=== PATIENT | female | born 1930 | race Caucasian/White ===

== ENCOUNTER 2017-06-09 21:00 | Inpatient (IN) | payer MEDICARE, OTHER ==
[~2017-06-09 21:00] MED LIST: ETOMIDATE INJ/PF 20 MG/10 ML SDV IV ONE; KETAMINE HCL INJ 500 MG/10 ML VIAL ONE
[2017-06-09] MEDS ORDERED: NITROGLYCERIN 0.4 MG/TAB 25 TAB/BOTTLE ONE (21:08)
[2017-06-09] MEDS ORDERED: FUROSEMIDE INJ/PF 40 MG/4 ML SDV ONE (21:09)
[2017-06-09] MEDS ORDERED: NITROGLYCERIN/D5W 50 MG/250 ML RTUINJ IV ONE (21:09)
[2017-06-09] MEDS ORDERED: NITROGLYCERIN 0.4 MG/TAB 25 TAB/BOTTLE SL ONE ×2 (21:16→21:17)
[2017-06-09] MEDS: NITROGLYCERIN/D5W 50 MG/250 ML RTUINJ IV PRN ×2 (21:31→21:40)
--- NOTE | 2017-06-09 21:31 | RADIOLOGY REPORT (SQ) ---
EXAM DESCRIPTION: CHEST SINGLE VIEW COMPLETED DATE/TIME: 06/09/2017 9:23 pm REASON FOR STUDY: respiratory distress COMPARISON: 04/25/2011 NUMBER OF VIEWS: One view. TECHNIQUE: Single frontal radiographic image of the chest acquired. LIMITATIONS: None. FINDINGS: LUNGS AND PLEURA: Diffuse bilateral airspace disease. No large effusions. MEDIASTINUM AND HEART: Cardiomegaly. Pulmonary vascular redistribution. BONY STRUCTURES: No acute findings. HARDWARE: None. OTHER: No other significant finding. IMPRESSION: Congestive heart failure. TECHNICAL DOCUMENTATION: JOB ID: [id number]
--- NOTE | 2017-06-09 21:32 | EKG REPORT ---
SEVERITY:- ABNORMAL ECG - MULTI FOCAL ATRIAL TACHYCARDIA LEFT BUNDLE BRANCH BLOCK : Confirmed by: Lashae Gómez 09-Jun-2017 21:31:59
[2017-06-09 22:06] LABS: APPEARANCE,URINE SLIGHTLY-CLOUDY; BILIRUBIN,URINE NEGATIVE (NEGATIVE); COLOR,URINE YELLOW; GLUCOSE, URINE NEGATIVE (NEGATIVE); KETONES,URINE NEGATIVE (NEGATIVE); LEUKOCYTE ESTERASE,URINE NEGATIVE (NEGATIVE); NITRITE,URINE NEGATIVE (NEGATIVE); PROTEIN,URINE 100 mg/dL (NEGATIVE); URINE SPECIFIC GRAVITY 1.008; UROBILINOGEN,URINE NEGATIVE mg/dL (<2.0)
[2017-06-09 22:38] LABS: ABSOLUTE BASOPHILS # (AUTO) 0.1 10^3/uL (0.0-0.2); ABSOLUTE LYMPHOCYTES (AUTO) 0.9 10^3/uL (0.5-4.7); ABSOLUTE MONOCYTES (AUTO) 1.2 10^3/uL (0.1-1.4); BASOPHILS % (AUTO) 0.4 % (0-2); HEMATOCRIT 42.1 % (36.0-47.0); HEMOGLOBIN 14.2 g/dL (12.0-15.5); LYMPHOCYTES % (AUTO) 5.7 % (13-45); MEAN CORPUSCULAR HEMOGLOBIN 34.9 pg (27.0-33.4); MEAN CORPUSCULAR HGB CONC 33.7 g/dL (32.0-36.0); MEAN CORPUSCULAR VOLUME 103 fl (80-97); MONOCYTES % (AUTO) 8.2 % (3-13); PLATELET COUNT 131 10^3/uL (150-450); RED BLOOD COUNT 4.07 10^6/uL (3.72-5.28); RED CELL DISTRIBUTION WIDTH 15.3 % (11.5-14.0); SEGMENTED NEUTROPHILS % (AUTO) 85.7 % (42-78); TOTAL CELLS COUNTED % (AUTO) 100 %; WHITE BLOOD COUNT 15.1 10^3/uL (4.0-10.5)
[2017-06-09] MEDS ORDERED: METOPROLOL TARTRATE 50 MG TABLET PO SCH (22:45)
[2017-06-09 22:55] LABS: ALANINE AMINOTRANSFERASE 37 U/L (9-52); ALBUMIN 4.1 g/dL (3.5-5.0); ALKALINE PHOSPHATASE 141 U/L (38-126); ANION GAP 18 (5-19); ASPARTATE AMINO TRANSFERASE 66 U/L (14-36); BILIRUBIN,DIRECT 0.2 mg/dL (0.0-0.4); BILIRUBIN,TOTAL 0.6 mg/dL (0.2-1.3); BLOOD UREA NITROGEN 14 mg/dL (7-20); CALCIUM 9.4 mg/dL (8.4-10.2); CARBON DIOXIDE 16 mmol/L (22-30); CHLORIDE 106 mmol/L (98-107); CREATINE KINASE 287 U/L (30-135); GLUCOSE 171 mg/dL (75-110); POTASSIUM 3.4 mmol/L (3.6-5.0); SODIUM 139.5 mmol/L (137-145); TOTAL PROTEIN 6.5 g/dL (6.3-8.2)
[2017-06-09 23:04] LABS: ARTERIAL BLOOD BASE EXCESS -6.7 mmol/L; ARTERIAL BLOOD H2CO3 0.97 mmol/L (1.05-1.35); ARTERIAL BLOOD HCO3 17.6 mmol/L (20-26); ARTERIAL BLOOD O2 SATURATION 96.4 % (94-98); ARTERIAL BLOOD PCO2 32.1 mmHg (35-45); ARTERIAL BLOOD PH 7.36 (7.35-7.45); ARTERIAL BLOOD PO2 86.9 mmHg (80-100); ARTERIAL BLOOD TOTAL CO2 18.6 mmol/L (21-25)
[2017-06-09 23:05] LABS: ARTERIAL BLOOD FIO2 100%
[2017-06-09 23:12] LABS: TROPONIN I 4.31 ng/mL
--- NOTE | 2017-06-09 23:17 | ER Document Report ---
ED General - General Chief Complaint: Respiratory Distress Stated Complaint: RESPIRATORY DISTRESS Time Seen by Provider: 06/09/17 21:16 Mode of Arrival: Medic Information source: Outside Facility Records Cannot obtain history due to: Dementia TRAVEL OUTSIDE OF THE [place] IN LAST 30 DAYS: No - HPI Patient complains to provider of: Pt. brought in and respiratory distress Onset: Just prior to arrival Onset/Duration: Sudden Severity: Severe Notes: Patient's daughter states that she brought the patient to a nearby urgent care today because she was coughing and appeared short of breath. She states they could not obtain the pulse ox they are. 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 They diagnosed her with bronchitis and sent her home on doxycycline. Patient's daughter had just dropped her off at her facility when she got the call that she was taken to the emergency department. Patient's daughter states patient is severely demented and she is DNR. Daughter states she does not want to put on her breathing machine under any circumstance. - Related Data Allergies/Adverse Reactions: meperidine HCl [From Demerol] Allergy (Verified 04/25/11 22:44) red dye [Red Dye] Allergy (Verified 04/25/11 22:44) Past Medical History - General Information source: Outside Facility Records Cannot obtain history due to: Dementia - Social History Smoking Status: Former Smoker Chew tobacco use (# tins/day): No Frequency of alcohol use: None Drug Abuse: None Lives with: [facility] Family History: Hypertension Patient has suicidal ideation: No Patient has homicidal ideation: No - Past Medical History Cardiac Medical History: Reports: Hx Atrial Fibrillation, Hx Heart Attack, Hx Hypercholesterolemia, Hx Hypertension Pulmonary Medical History: Reports: Hx Bronchitis Renal/ Medical History: Denies: Hx Peritoneal Dialysis Malignancy Medical History: Reports: None GI Medical History: Reports: Hx Gastroesophageal Reflux Disease Musculoskeltal Medical History: Reports Hx Arthritis Psychiatric Medical History: Reports: Hx Depression Traumatic Medical History: Reports: None Past Surgical History: Reports: Hx Cardiac Catheterization, Hx Open Heart Surgery - Immunizations Hx Diphtheria, Pertussis, Tetanus Vaccination: Yes Review of Systems - Review of Systems -: Yes ROS unobtainable due to patient's medical condition Physical Exam - Vital signs Vitals: Resp Pulse Ox 48 H 100 06/09/17 21:00 06/09/17 21:00 Interpretation: Tachycardic, Tachypneic - Notes Notes: PHYSICAL EXAMINATION: GENERAL: Medically ill-appearing, marketed respiratory distress on BiPAP. HEAD: Atraumatic, normocephalic. EYES: Pupils equal round and reactive to light, extraocular movements intact, conjunctiva are normal. ENT: Nares patent. Dry mucous membranes. NECK: Normal range of motion, supple without lymphadenopathy LUNGS: Bilateral crackles throughout both lungs. HEART: Tachy and regular rhythm ABDOMEN: Soft, nontender, nondistended abdomen. No guarding, no rebound. No masses appreciated. Female : deferred Musculoskeletal: No cyanosis. NEUROLOGICAL: Cranial nerves grossly intact. Normal sensory, motor exams PSYCH: Anxious SKIN: Warm, Dry, normal turgor, no rashes or lesions noted. Course - Re-evaluation Re-evalutation: 06/09/17 23:16 Patient presented via EMS. They did have her DNR paper. Patient was started on BiPAP to sublingual nitroglycerin were given. Patient was then placed on a nitro drip at 20 mcg/min as soon as an IV access was obtained. Chest x-ray showed florid CHF. Patient began to improve and did well throughout her stay in the emergency department. Patient's daughter and daughter's neighbor presented to the emergency department. I did talk to them for quite a while. Patient just moved here after her in April. 06/09/17 23:17 Labs- All tests 24 hr 06/09/17 06/09/17 06/09/17 21:45 22:20 22:25 WBC 15.1 H RBC 4.07 Hgb 14.2 Hct 42.1 MCV 103 H MCH 34.9 H MCHC 33.7 RDW 15.3 H Plt Count 131 L Seg Neutrophils % 85.7 H Lymphocytes % 5.7 L Monocytes % 8.2 Eosinophils % 0.0 Basophils % 0.4 Absolute Neutrophils 13.0 H Absolute Lymphocytes 0.9 Absolute Monocytes 1.2 Absolute Eosinophils 0.0 Absolute Basophils 0.1 Carbonic Acid Cancelled HCO3/H2CO3 Ratio Cancelled ABG pH Cancelled ABG pCO2 Cancelled ABG pO2 Cancelled ABG HCO3 Cancelled ABG Total CO2 Cancelled ABG O2 Saturation Cancelled ABG Base Excess Cancelled FiO2 Cancelled Sodium Potassium Chloride Carbon Dioxide Anion Gap BUN Creatinine Est GFR ( Amer) Est GFR (Non-Af Amer) Glucose Calcium Total Bilirubin Direct Bilirubin Neonat Total Bilirubin Neonat Direct Bilirubin Neonat Indirect Bili AST ALT Alkaline Phosphatase Creatine Kinase CK-MB (CK-2) Troponin I NT-Pro-B Natriuret Pep Total Protein Albumin Urine Color YELLOW Urine Appearance SLIGHTLY-CLOUDY Urine pH 5.0 Ur Specific [place] 1.008 Urine Protein 100 H Urine Glucose (UA) NEGATIVE Urine Ketones NEGATIVE Urine Blood MODERATE H Urine Nitrite NEGATIVE Urine Bilirubin NEGATIVE Urine Urobilinogen NEGATIVE Ur Leukocyte Esterase NEGATIVE Urine WBC (Auto) 4 Urine RBC (Auto) 2 U Hyaline Cast (Auto) 14 Urine Bacteria (Auto) TRACE Squamous Epi Cells Auto <1 Urine Mucus (Auto) RARE Urine Ascorbic Acid NEGATIVE 06/09/17 06/09/17 06/09/17 22:25 22:25 22:50 WBC RBC Hgb Hct MCV MCH MCHC RDW Plt Count Seg Neutrophils % Lymphocytes % Monocytes % Eosinophils % Basophils % Absolute Neutrophils Absolute Lymphocytes Absolute Monocytes Absolute Eosinophils Absolute Basophils Carbonic Acid 0.97 L HCO3/H2CO3 Ratio 18:1 ABG pH 7.36 ABG pCO2 32.1 L ABG pO2 86.9 ABG HCO3 17.6 L ABG Total CO2 18.6 L ABG O2 Saturation 96.4 ABG Base Excess -6.7 FiO2 100% Sodium 139.5 Potassium 3.4 L Chloride 106 Carbon Dioxide 16 L Anion Gap 18 BUN 14 Creatinine 0.97 Est GFR ( Amer) > 60 Est GFR (Non-Af Amer) 54 L Glucose 171 H Calcium 9.4 Total Bilirubin 0.6 Direct Bilirubin 0.2 Neonat Total Bilirubin Not Reportable Neonat Direct Bilirubin Not Reportable Neonat Indirect Bili Not Reportable AST 66 H ALT 37 Alkaline Phosphatase 141 H Creatine Kinase 287 H CK-MB (CK-2) 39.00 H Troponin I 4.310 NT-Pro-B Natriuret Pep 6180 H Total Protein 6.5 Albumin 4.1 Urine Color Urine Appearance Urine pH Ur Specific [place] Urine Protein Urine Glucose (UA) Urine Ketones Urine Blood Urine Nitrite Urine Bilirubin Urine Urobilinogen Ur Leukocyte Esterase Urine WBC (Auto) Urine RBC (Auto) U Hyaline Cast (Auto) Urine Bacteria (Auto) Squamous Epi Cells Auto Urine Mucus (Auto) Urine Ascorbic Acid Chest X-Ray 06/09/17 21:06 IMPRESSION: Congestive heart failure. - Vital Signs Vital signs: Temp Pulse Resp BP Pulse Ox 25 H 123/69 97 06/09/17 22:46 06/09/17 22:46 06/09/17 22:46 - Laboratory Result Diagrams: 06/09/17 22:25 06/09/17 22:25 Laboratory results interpreted by me: 06/09/17 06/09/17 06/09/17 21:45 22:25 22:25 WBC 15.1 H MCV 103 H MCH 34.9 H RDW 15.3 H Plt Count 131 L Seg Neutrophils % 85.7 H Lymphocytes % 5.7 L Absolute Neutrophils 13.0 H Carbonic Acid ABG pCO2 ABG HCO3 ABG Total CO2 Potassium 3.4 L Carbon Dioxide 16 L Est GFR (Non-Af Amer) 54 L Glucose 171 H AST 66 H Alkaline Phosphatase 141 H Creatine Kinase 287 H CK-MB (CK-2) NT-Pro-B Natriuret Pep Urine Protein 100 H Urine Blood MODERATE H 06/09/17 06/09/17 22:25 22:50 WBC MCV MCH RDW Plt Count Seg Neutrophils % Lymphocytes % Absolute Neutrophils Carbonic Acid 0.97 L ABG pCO2 32.1 L ABG HCO3 17.6 L ABG Total CO2 18.6 L Potassium Carbon Dioxide Est GFR (Non-Af Amer) Glucose AST Alkaline Phosphatase Creatine Kinase CK-MB (CK-2) 39.00 H NT-Pro-B Natriuret Pep 6180 H Urine Protein Urine Blood Critical Care Note - Critical Care Note Total time excluding time spent on procedures (mins): 45 Comments: 45 minutes of critical care time spent in direct contact evaluating and reevaluating the patient, treating symptoms, reviewing labs and studies and speaking with family and consultants excluding any procedures Discharge - Discharge Clinical Impression: Non-STEMI (non-ST elevated myocardial infarction), DNR (do not resuscitate), CHF (congestive heart failure), Dementia Admitting Provider: Hospitalist - Dr. Garcia Unit Admitted: ICU
[2017-06-09] MEDS ORDERED: HEPARIN SODIUM,PORCINE/D5W 25,000 UNIT/250 ML RTUINJ IV PRN (23:25)
[2017-06-09] MEDS ORDERED: METOPROLOL TARTRATE PF/INJ 5 MG/5 ML SDV IV PRN (23:30)
[2017-06-09] MEDS ORDERED: DIGOXIN INJ 0.5 MG/2 ML AMPULE IV ONE (23:33)
[2017-06-09] MEDS ORDERED: POTASSI CL 20 MEQ/50 ML RIDER 20 MEQ/50 ML RTUPB IV SCH (23:34)
[2017-06-09 23:40] LABS: INTERNATIONAL RATION (INR) 0.96; PROTHROMBIN TIME 13.4 SEC (11.4-15.4)
[2017-06-09 23:41] LABS: PARTIAL THROMBOPLASTIN TIME 39.8 SEC (23.5-35.8)
[2017-06-10] MEDS ORDERED: NITROGLYCERIN 2.5 MG (0.1 MG/HR) PATCH.TD24 TD ONE (00:18)
[2017-06-10] MEDS ORDERED: MAGNESIUM SULFATE/D5W 1 GM/100 ML RTUPB IV SCH (00:45)
--- NOTE | 2017-06-10 01:11 | PDOC H&P ---
History of Present Illness Admission Date/PCP: 06/09/17 22:55 Patient complains of: Shortness of breath History of Present Illness: NALINI MARSH is a 87 year old female who resides at [facility]. Patient has history of A. fib, a flutter, dementia, Raynaud's disease and arthritis. She is a DNR. At about 2030 on 06/09/2017 patient developed shortness of breath. Patient was noted to be satting 58% on room air in no respiratory distress. Patient was diaphoretic and unable to breathe. Patient pulse was 130 most likely irregular because she has a history of A. fib. Patient was unable to provide any history as she was placed on BiPAP and resting. Patient daughter with briefly present and stated that patient was seen at urgent care on day of admission as she had been coughing and appear to be short of breath. They want unable to obtain a pulse ox due to her Raynaud's disease. Patient was placed on doxycycline and sent home. The daughter has reported to the ED that under no circumstances does she want her mother placed on a breathing machine. Please note that history was taken from the medical record from the ED and from the patient's [facility]. ED patient was noted to have NSTEMI with a troponin of 4.310 and heart failure with a BNP of 6180. Patient was started on a nitroglycerin drip and placed on BiPAP. Hospitalist was called to admit patient for non-STEMI, acute congestive heart failure acute hypoxic respiratory failure. Past Medical History Cardiac Medical History: Reports: Atrial Fibrillation, Myocardial Infarction, Hyperlipidema, Hypertension Pulmonary Medical History: Reports: Bronchitis Malignancy Medical History: Reports: None GI Medical History: Reports: Gastroesophageal Reflux Disease Musculoskeltal Medical History: Reports: Arthritis Psychiatric Medical History: Reports: Depression Traumatic Medical History: Reports: None Past Surgical History Past Surgical History: Reports: Cardiac Catheterization Social History Lives with: Jail Smoking Status: Former Smoker - Advance Directive Resuscitation Status: Do Not Resuscitate Family History Family History: Hypertension Parental Family History Reviewed: No Children Family History Reviewed: No Sibling(s) Family History Reviewed.: No Medication/Allergy Home Medications: Sertraline HCl 100 mg PO DAILY 04/25/11 Allopurinol [Zyloprim 100 mg Tablet] 100 mg PO DAILY 06/09/17 Diltiazem HCl [Diltiazem 24Hr Cd] 120 mg PO DAILY 06/09/17 Donepezil HCl [Aricept] 10 mg PO QHS 06/09/17 Loratadine 10 mg PO DAILY 06/09/17 Allergies/Adverse Reactions: meperidine HCl [From Demerol] Allergy (Verified 04/25/11 22:44) red dye [Red Dye] Allergy (Verified 04/25/11 22:44) Review of Systems ROS unobtainable: Due to mental status Physical Exam Vital Signs: Temp Pulse Resp BP Pulse Ox 25 H 123/69 97 06/09/17 22:46 06/09/17 22:46 06/09/17 22:46 General appearance: PRESENT: no acute distress, thin Head exam: PRESENT: normocephalic Eye exam: ABSENT: scleral icterus Ear exam: PRESENT: normal external ear exam Mouth exam: PRESENT: other - bipap mask in place Neck exam: ABSENT: carotid bruit, JVD, lymphadenopathy, thyromegaly Respiratory exam: PRESENT: crackles, rales, unlabored. ABSENT: rhonchi, wheezes Cardiovascular exam: PRESENT: irregular rhythm. ABSENT: diastolic murmur, rubs , systolic murmur Pulses: PRESENT: normal dorsalis pedis pul Vascular exam: PRESENT: normal capillary refill GI/Abdominal exam: PRESENT: normal bowel sounds, soft. ABSENT: distended, guarding, mass, organolmegaly, rebound, tenderness Rectal exam: PRESENT: deferred Gentrourinary exam: PRESENT: indwelling catheter Extremities exam: PRESENT: full ROM. ABSENT: calf tenderness, clubbing, pedal edema Neurological exam: PRESENT: other - sleeping. ABSENT: motor sensory deficit Psychiatric exam: ABSENT: homicidal ideation, suicidal ideation Skin exam: PRESENT: dry, intact, warm. ABSENT: cyanosis, rash Results Laboratory Results: 06/09/17 06/09/17 06/09/17 21:45 22:25 22:25 WBC 15.1 H RBC 4.07 Hgb 14.2 Hct 42.1 MCV 103 H MCH 34.9 H MCHC 33.7 RDW 15.3 H Plt Count 131 L Seg Neutrophils % 85.7 H Lymphocytes % 5.7 L Monocytes % 8.2 Eosinophils % 0.0 Basophils % 0.4 Absolute Neutrophils 13.0 H Absolute Lymphocytes 0.9 Absolute Monocytes 1.2 Absolute Eosinophils 0.0 Absolute Basophils 0.1 PT INR APTT Carbonic Acid HCO3/H2CO3 Ratio ABG pH ABG pCO2 ABG pO2 ABG HCO3 ABG Total CO2 ABG O2 Saturation ABG Base Excess FiO2 Sodium 139.5 Potassium 3.4 L Chloride 106 Carbon Dioxide 16 L Anion Gap 18 BUN 14 Creatinine 0.97 Est GFR ( Amer) > 60 Est GFR (Non-Af Amer) 54 L Glucose 171 H Calcium 9.4 Magnesium Total Bilirubin 0.6 Direct Bilirubin 0.2 AST 66 H ALT 37 Alkaline Phosphatase 141 H Creatine Kinase 287 H CK-MB (CK-2) Troponin I NT-Pro-B Natriuret Pep Total Protein 6.5 Albumin 4.1 Urine Color YELLOW Urine Appearance SLIGHTLY-CLOUDY Urine pH 5.0 Ur Specific [place] 1.008 Urine Protein 100 H Urine Glucose (UA) NEGATIVE Urine Ketones NEGATIVE Urine Blood MODERATE H Urine Nitrite NEGATIVE Urine Bilirubin NEGATIVE Urine Urobilinogen NEGATIVE Ur Leukocyte Esterase NEGATIVE Urine WBC (Auto) 4 Urine RBC (Auto) 2 U Hyaline Cast (Auto) 14 Urine Bacteria (Auto) TRACE Squamous Epi Cells Auto <1 Urine Mucus (Auto) RARE Urine Ascorbic Acid NEGATIVE 06/09/17 06/09/17 06/09/17 22:25 22:25 22:25 WBC RBC Hgb Hct MCV MCH MCHC RDW Plt Count Seg Neutrophils % Lymphocytes % Monocytes % Eosinophils % Basophils % Absolute Neutrophils Absolute Lymphocytes Absolute Monocytes Absolute Eosinophils Absolute Basophils PT 13.4 INR 0.96 APTT 39.8 H Carbonic Acid HCO3/H2CO3 Ratio ABG pH ABG pCO2 ABG pO2 ABG HCO3 ABG Total CO2 ABG O2 Saturation ABG Base Excess FiO2 Sodium Potassium Chloride Carbon Dioxide Anion Gap BUN Creatinine Est GFR ( Amer) Est GFR (Non-Af Amer) Glucose Calcium Magnesium 1.6 Total Bilirubin Direct Bilirubin AST ALT Alkaline Phosphatase Creatine Kinase CK-MB (CK-2) 39.00 H Troponin I 4.310 NT-Pro-B Natriuret Pep 6180 H Total Protein Albumin Urine Color Urine Appearance Urine pH Ur Specific [place] Urine Protein Urine Glucose (UA) Urine Ketones Urine Blood Urine Nitrite Urine Bilirubin Urine Urobilinogen Ur Leukocyte Esterase Urine WBC (Auto) Urine RBC (Auto) U Hyaline Cast (Auto) Urine Bacteria (Auto) Squamous Epi Cells Auto Urine Mucus (Auto) Urine Ascorbic Acid 06/09/17 22:50 WBC RBC Hgb Hct MCV MCH MCHC RDW Plt Count Seg Neutrophils % Lymphocytes % Monocytes % Eosinophils % Basophils % Absolute Neutrophils Absolute Lymphocytes Absolute Monocytes Absolute Eosinophils Absolute Basophils PT INR APTT Carbonic Acid 0.97 L HCO3/H2CO3 Ratio 18:1 ABG pH 7.36 ABG pCO2 32.1 L ABG pO2 86.9 ABG HCO3 17.6 L ABG Total CO2 18.6 L ABG O2 Saturation 96.4 ABG Base Excess -6.7 FiO2 100% Sodium Potassium Chloride Carbon Dioxide Anion Gap BUN Creatinine Est GFR ( Amer) Est GFR (Non-Af Amer) Glucose Calcium Magnesium Total Bilirubin Direct Bilirubin AST ALT Alkaline Phosphatase Creatine Kinase CK-MB (CK-2) Troponin I NT-Pro-B Natriuret Pep Total Protein Albumin Urine Color Urine Appearance Urine pH Ur Specific [place] Urine Protein Urine Glucose (UA) Urine Ketones Urine Blood Urine Nitrite Urine Bilirubin Urine Urobilinogen Ur Leukocyte Esterase Urine WBC (Auto) Urine RBC (Auto) U Hyaline Cast (Auto) Urine Bacteria (Auto) Squamous Epi Cells Auto Urine Mucus (Auto) Urine Ascorbic Acid Impressions: Chest X-Ray 06/09/17 21:06 IMPRESSION: Congestive heart failure. Assessment & Plan - Diagnosis (1) Acute respiratory failure with hypoxia Is this a current diagnosis for this admission?: Yes Plan: Patient was noted to have a saturation of 58% by EMS. Patient acute respiratory failure most likely secondary to flash pulmonary edema resulting from acute heart failure due to her non-STEMI. Patient saturations have been stable here on BiPAP satting between 96 to 100%. Patient PO2 is 86.9 on ABG. Will continue to monitor on bipap for now. Suspect that patient's acute bronchitis was actually an NSTEMI. (2) Non-STEMI (non-ST elevated myocardial infarction) Is this a current diagnosis for this admission?: Yes Plan: Patient presented with shortness of breath denied any chest pain. Patient initially started on nitro drip. Patient now hypotensive. We will discontinue the drip. Placed on nitro patch. Patient on heparin GTT. Patient not given a bolus. Patient on IV beta-rg. Patient will continue on her home dose of statin. Patient initial troponin was 4.30 will continue to trend every 62. Will follow lipid panel and A1c. Cardiac echo ordered. Patient is DNR and family does not want any invasive intervention. Will consult cardiology for further recommendations. (3) Hypokalemia Is this a current diagnosis for this admission?: Yes Plan: Patient potassium 3.4 given 40mEq of IV potassium. (4) Hypomagnesemia Is this a current diagnosis for this admission?: Yes Plan: Magnesium is 1.6. Patient given 2 g of IV magnesium. (5) Atrial fibrillation Qualifiers: Atrial fibrillation type: chronic Qualified Code(s): I48.2 - Chronic atrial fibrillation Is this a current diagnosis for this admission?: Yes Plan: Patient with a history of atrial fibrillation normally on metoprolol. She not on anticoagulation. Patient heart rate in the low 100s. She appears to be chest and tachycardia right now. Patient on metoprolol pushes twice daily. Patient also given her digoxin IV. Patient electrolytes are being replaced. (6) CHF (congestive heart failure) Qualifiers: Congestive heart failure type: unspecified Congestive heart failure chronicity: unspecified Qualified Code(s): I50.9 - Heart failure, unspecified Is this a current diagnosis for this admission?: Yes Plan: With acute congestive heart failure with a BNP of 6180. This may have resulted secondary to the end STEMI. Will order a cardiac echo. Patient currently on metoprolol and Lasix IV. Will add NEIL IV push. Patient is not really taking much by mouth. Patient has a Smith in place to monitor strict I's and O's. Will try to limit the amount of fluids patient is receiving via drips. Patient is on BiPAP which should help with her pulmonary congestion. (7) DNR (do not resuscitate) Is this a current diagnosis for this admission?: Yes Plan: She is not to be placed on a ventilator under no circumstances. (8) Dementia Is this a current diagnosis for this admission?: Yes Plan: Continue supportive care. - Time Time Spent: 30 to 50 Minutes Anticipated discharge: SNF - Inpatient Certification Medical Necessity: Significant Comorbidiites Make Outpatient Treatment Too Risky , Need Close Monitoring Due to Risk of Patient Decompensation
[2017-06-10] MEDS ORDERED: NITROGLYCERIN 2.5 MG (0.1 MG/HR) PATCH.TD24 ONE (01:29)
[2017-06-10] MEDS: MAGNESIUM SULFATE/D5W 1 GM/100 ML RTUPB IV SCH ×2 (01:43→03:30)
[2017-06-10] MEDS ORDERED: POTASSI CL 20 MEQ/50 ML RIDER 20 MEQ/50 ML RTUPB IV SCH (02:30)
[2017-06-10] MEDS: FUROSEMIDE INJ/PF 20 MG/2 ML SDV IV SCH ×2 (05:43→14:36)
[2017-06-10] MEDS ORDERED: FUROSEMIDE INJ/PF 20 MG/2 ML SDV IV SCH ×3 (06:00→10:00)
[2017-06-10 06:07] LABS: ABSOLUTE LYMPHOCYTES (AUTO) 1.5 10^3/uL (0.5-4.7); ABSOLUTE MONOCYTES (AUTO) 1.2 10^3/uL (0.1-1.4); ABSOLUTE NEUT (AUTO) 8.1 10^3/uL (1.7-8.2); BASOPHILS % (AUTO) 0.2 % (0-2); HEMATOCRIT 37.8 % (36.0-47.0); HEMOGLOBIN 12.7 g/dL (12.0-15.5); LYMPHOCYTES % (AUTO) 13.6 % (13-45); MEAN CORPUSCULAR HEMOGLOBIN 34.9 pg (27.0-33.4); MEAN CORPUSCULAR HGB CONC 33.7 g/dL (32.0-36.0); MEAN CORPUSCULAR VOLUME 104 fl (80-97); MONOCYTES % (AUTO) 10.8 % (3-13); PLATELET COUNT 112 10^3/uL (150-450); RED BLOOD COUNT 3.65 10^6/uL (3.72-5.28); SEGMENTED NEUTROPHILS % (AUTO) 75.4 % (42-78); TOTAL CELLS COUNTED % (AUTO) 100 %; WHITE BLOOD COUNT 10.7 10^3/uL (4.0-10.5)
[2017-06-10 06:27] LABS: ALANINE AMINOTRANSFERASE 39 U/L (9-52); ALBUMIN 3.4 g/dL (3.5-5.0); ALKALINE PHOSPHATASE 111 U/L (38-126); ANION GAP 8 (5-19); ASPARTATE AMINO TRANSFERASE 120 U/L (14-36); BILIRUBIN,DIRECT 0.4 mg/dL (0.0-0.4); BILIRUBIN,TOTAL 0.6 mg/dL (0.2-1.3); BLOOD UREA NITROGEN 16 mg/dL (7-20); CALCIUM 8.8 mg/dL (8.4-10.2); CARBON DIOXIDE 22 mmol/L (22-30); CHLORIDE 109 mmol/L (98-107); CHOLESTEROL 157.76 mg/dL (0-200); GLUCOSE 144 mg/dL (75-110); SODIUM 139.1 mmol/L (137-145); TOTAL PROTEIN 5.9 g/dL (6.3-8.2); TRIGLYCERIDES 120 mg/dL (<150)
[2017-06-10 06:37] LABS: DIRECT LDL 70 mg/dL (<100)
[2017-06-10 06:42] LABS: POTASSIUM 4.9 mmol/L (3.6-5.0)
[2017-06-10 06:43] LABS: MAGNESIUM 2.6 mg/dL (1.6-2.3)
[2017-06-10] MEDS ORDERED: INFLUENZA ADLT QUAD (36MOS+) 2017-18 VAC 0.5 ML SYR IM PRN (09:17)
[2017-06-10] MEDS ORDERED: (PENDING PHARMACY ID) (Pravastatin Sodium [Pravastatin Sodium] 10 MG) PO SCH (10:00)
[2017-06-10] MEDS ORDERED: DIGOXIN INJ 0.5 MG/2 ML AMPULE IV SCH ×2 (10:00→22:00)
[2017-06-10] MEDS ORDERED: SERTRALINE HCL 50 MG TABLET PO SCH (10:00)
[2017-06-10] MEDS ORDERED: METOPROLOL TARTRATE PF/INJ 5 MG/5 ML SDV IV SCH (10:00)
[2017-06-10] MEDS ORDERED: DIGOXIN 0.125 MG TABLET PO SCH (10:00)
[2017-06-10] MEDS ORDERED: CLOPIDOGREL BISULFATE 75 MG TABLET PO SCH (10:00)
[2017-06-10] MEDS: PANTOPRAZOLE SODIUM 40 MG VIAL IV SCH (12:23)
[2017-06-10] MEDS: NITROGLYCERIN 2.5 MG (0.1 MG/HR) PATCH.TD24 TD SCH (12:23)
[2017-06-10] MEDS: ENOXAPARIN SODIUM INJ 60 MG/0.6 ML DISP.SYRIN SUBCUT SCH ×2 (12:26→21:14)
--- NOTE | 2017-06-10 17:12 | PDOC PROGRESS REPORT ---
Subjective Progress Note for:: 06/10/17 Subjective:: No complaints of pleasantly demented Review of system Unable to obtain due to patient's mental status All significant laboratories and diagnostics have been reviewed Reason For Visit: HEART FAILURE Physical Exam Vital Signs: Temp Pulse Resp BP Pulse Ox 98.0 F 87 21 H 128/56 H 91 L 06/10/17 03:22 06/10/17 03:22 06/10/17 04:08 06/10/17 03:22 06/10/17 03:22 Intake & Output 06/09/17 06/10/17 06/11/17 06:59 06:59 06:59 Intake Total 900 Output Total 400 Balance 500 Weight 51 kg General appearance: PRESENT: cooperative, thin Head exam: PRESENT: atraumatic, normocephalic Eye exam: PRESENT: conjunctiva pink, EOMI, PERRLA Ear exam: PRESENT: normal external ear exam Mouth exam: PRESENT: moist, neck supple Neck exam: PRESENT: full ROM. ABSENT: JVD, lymphadenopathy, tenderness Respiratory exam: PRESENT: clear to auscultation nadira Cardiovascular exam: PRESENT: irregular rhythm. ABSENT: diastolic murmur, RRR, systolic murmur Vascular exam: PRESENT: normal capillary refill GI/Abdominal exam: PRESENT: normal bowel sounds, soft. ABSENT: tenderness Extremities exam: PRESENT: full ROM. ABSENT: joint swelling, pedal edema Musculoskeletal exam: PRESENT: ambulatory Neurological exam: PRESENT: alert, awake, oriented to person, CN II-XII grossly intact Psychiatric exam: PRESENT: appropriate affect, normal mood Skin exam: PRESENT: intact, normal color Results Laboratory Results: 06/10/17 05:45 06/10/17 05:45 06/10/17 06/10/17 05:45 05:45 WBC 10.7 H RBC 3.65 L Hgb 12.7 Hct 37.8 MCV 104 H MCH 34.9 H MCHC 33.7 RDW 15.0 H Plt Count 112 L Seg Neutrophils % 75.4 Lymphocytes % 13.6 Monocytes % 10.8 Eosinophils % 0.0 Basophils % 0.2 Absolute Neutrophils 8.1 Absolute Lymphocytes 1.5 Absolute Monocytes 1.2 Absolute Eosinophils 0.0 Absolute Basophils 0.0 Sodium 139.1 Potassium 4.9 D Chloride 109 H Carbon Dioxide 22 Anion Gap 8 BUN 16 Creatinine 0.93 Est GFR ( Amer) > 60 Est GFR (Non-Af Amer) 57 L Glucose 144 H Calcium 8.8 Magnesium 2.6 H D Total Bilirubin 0.6 AST 120 H ALT 39 Alkaline Phosphatase 111 Total Protein 5.9 L Albumin 3.4 L Triglycerides 120 Cholesterol 157.76 LDL Cholesterol Direct 70 VLDL Cholesterol 24.0 HDL Cholesterol 65 06/10/17 05:45 Troponin I 20.900 Impressions: Chest X-Ray 06/09/17 21:06 IMPRESSION: Congestive heart failure. Assessment & Plan - Diagnosis (1) Acute respiratory failure with hypoxia Is this a current diagnosis for this admission?: Yes Plan: Improved when compared to admission. To change BiPAP to as needed (2) Atrial fibrillation Qualifiers: Atrial fibrillation type: chronic Qualified Code(s): I48.2 - Chronic atrial fibrillation Is this a current diagnosis for this admission?: Yes Plan: Rate stable. To discontinue Lopressor IV and change to Toprol-XL. To discontinue digoxin. Patient was on Cardizem extended release as outpatient but will hold of these medication as do not know her EF (3) CHF (congestive heart failure) Qualifiers: Congestive heart failure type: unspecified Congestive heart failure chronicity: unspecified Qualified Code(s): I50.9 - Heart failure, unspecified Is this a current diagnosis for this admission?: Yes Plan: Echocardiogram has been requested. Unable to tell at this point in time whether diastolic versus systolic. Appears to be in the acute setting of a non- STEMI.To place patient on lisinopril and Toprol-XL. Continue diuresis (4) Dementia Qualifiers: Dementia type: unspecified type Dementia behavioral disturbance: without behavioral disturbance Qualified Code(s): F03.90 - Unspecified dementia without behavioral disturbance Is this a current diagnosis for this admission?: Yes Plan: Supportive and continue outpatient regimen (5) Hypokalemia Is this a current diagnosis for this admission?: Yes Plan: Replaced and will trend since on IV diuresis (6) Hypomagnesemia Is this a current diagnosis for this admission?: Yes Plan: Replace and will trend since on IV diuresis (7) Non-STEMI (non-ST elevated myocardial infarction) Is this a current diagnosis for this admission?: Yes Plan: To continue Lovenox and will place patient on lisinopril, Toprol-XL, aspirin and Lipitor will continue on nitro patch - Time Time Spent with patient: 15-24 minutes Medications reviewed and adjusted accordingly: Yes Anticipated discharge: SNF Within: within 48 hours - Inpatient Certification Based on my medical assessment, after consideration of the patient's comorbidities, presenting symptoms, or acuity I expect that the services needed warrant INPATIENT care.: Yes I certify that my determination is in accordance with my understanding of Medicare's requirements for reasonable and necessary INPATIENT services [42 CFR 412.3e].: Yes Medical Necessity: Need Close Monitoring Due to Risk of Patient Decompensation, Need For Continuous Telemetry Monitoring - IV diuresis
[2017-06-10] MEDS: ATORVASTATIN CALCIUM 80 MG TABLET PO SCH (17:29)
[2017-06-10] MEDS ORDERED: LISINOPRIL 10 MG TABLET PO ONE (17:30)
--- NOTE | 2017-06-10 20:36 | PDOC CONSULTATION ---
Consultation Consult Date: 06/10/17 Attending physician:: FITZ LEO Consult reason:: Shortness of breath History of Present Illness Admission Date/PCP: 06/09/17 22:55 Patient complains of: Shortness of breath History of Present Illness: NALINI MARSH is a 87 year old female who resides at [facility]. Patient has history of A. fib, a flutter, dementia, Raynaud's disease and arthritis. She is a DNR. At about 2030 on 06/09/2017 patient developed shortness of breath. Patient was noted to be satting 58% on room air in no respiratory distress. Patient was diaphoretic and unable to breathe. Patient pulse was 130 most likely irregular because she has a history of A. fib. Patient was unable to provide any history as she was placed on BiPAP and resting. Patient daughter with briefly present and stated that patient was seen at urgent care on day of admission as she had been coughing and appear to be short of breath. They want unable to obtain a pulse ox due to her Raynaud's disease. Patient was placed on doxycycline and sent home. The daughter has reported to the ED that under no circumstances does she want her mother placed on a breathing machine. Please note that history was taken from the medical record from the ED and from the patient's assisted. ED patient was noted to have NSTEMI with a troponin of 4.310 and heart failure with a BNP of 6180. Patient was started on a nitroglycerin drip and placed on BiPAP. Hospitalist was called to admit patient for non-STEMI, acute congestive heart failure acute hypoxic respiratory failure. This history was reviewed and confirmed. Patient could not add anything to this history as she was noted to be in respiratory distress and also has underlying dementia. I was asked to help patient with medical management of non -STEMI. Past Medical History Cardiac Medical History: Reports: Atrial Fibrillation, Myocardial Infarction, Hyperlipidema, Hypertension Pulmonary Medical History: Reports: Bronchitis Malignancy Medical History: Reports: None GI Medical History: Reports: Gastroesophageal Reflux Disease Musculoskeltal Medical History: Reports: Arthritis Psychiatric Medical History: Reports: Depression Traumatic Medical History: Reports: None Past Surgical History Past Surgical History: Reports: Cardiac Catheterization Social History Information Source: Relative Lives with: Shelter Smoking Status: Former Smoker - Advance Directive Resuscitation Status: Do Not Resuscitate Surrogate healthcare decision maker:: Patient's daughter is decerebrate decision-makers Family History Family History: Hypertension Parental Family History Reviewed: Yes Children Family History Reviewed: Yes Sibling(s) Family History Reviewed.: Yes Medication/Allergy Home Medications: Allopurinol [Zyloprim 100 mg Tablet] 100 mg PO DAILY 06/10/17 Cholestyramine (with Sugar) [Cholestyramine Packet] 4 gm PO Q6HP PRN 06/10/17 Clobetasol Propionate/Emoll [Clobetasol Emollient 0.05% Crm] 15 gm TP BID Diltiazem HCl [Diltiazem ER] 120 mg PO DAILY 06/10/17 Donepezil HCl [Aricept] 10 mg PO QHS 06/10/17 Ibuprofen [Motrin 800 mg Tablet] 800 mg PO Q8 06/10/17 Ipratropium/Albuterol Sulfate [Duoneb 3 ml Ampul] 3 ml NEB RTQ8HP PRN 06/10/17 Loratadine [Claritin] 10 mg PO DAILY 06/10/17 Meclizine HCl [Antivert 25 mg Tablet] 25 mg PO Q8HP PRN 06/10/17 Multivitamin [Multiple Vitamins] 1 each PO DAILY 06/10/17 Pantoprazole Sodium [Protonix] 40 mg PO BID 06/10/17 Saccharomyces Boulardii [Florastor] 250 mg PO BID 06/10/17 Sertraline HCl [Zoloft] 100 mg PO QHS 06/10/17 Valacyclovir HCl [Valacyclovir] 2,000 mg PO DAILYP PRN 06/10/17 Allergies/Adverse Reactions: meperidine HCl [From Demerol] Allergy (Verified 04/25/11 22:44) red dye [Red Dye] Allergy (Verified 04/25/11 22:44) Review of Systems ROS unobtainable: Due to mental status Physical Exam Vital Signs: Temp Pulse Resp BP Pulse Ox 98.2 F 50 L 26 H 144/50 H 98 06/10/17 16:36 06/10/17 16:36 06/10/17 16:36 06/10/17 16:36 06/10/17 16:36 Intake & Output 06/09/17 06/10/17 06/11/17 06:59 06:59 06:59 Intake Total 900 1030 Output Total 400 3550 Balance 500 -2520 Weight 51 kg Exam: GENERAL: well-nourished and in mild to moderate respiratory distress. Patient is alert but not oriented to place time or person. HEAD: Atraumatic, normocephalic. EYES: Pupils equal round and reactive to light, extraocular movements intact, sclera anicteric, conjunctiva are normal. ENT: TMs normal, nares patent, oropharynx clear without exudates. Moist mucous membranes. No oral ulcerations or bleeding gums noted NECK: supple without lymphadenopathy or JVD. Trachea is central. No cervical or axillary lymphadenopathy noted. Carotids are 2+ LUNGS: Breath sounds bibasilar fine crackles at bases. No significant dullness noted. CHEST: Palpation of chest wall shows no significant chest wall tenderness. HEART: [place] KELP CUTTER, No PSH, 2/6 TIERA aortic area, 1/6 dillon systolic murmur mitral area, rubs or gallops. ABDOMEN: Soft, no significant tenderness appreciated, normoactive bowel sounds. No guarding, no rebound. No rigidity noted . No masses appreciated. EXTREMITIES: Pedal pulses are 1-2+, no calf tenderness noted, Trace + pedal edema noted. No clubbing or cyanosis. NEUROLOGICAL: Patient is alert but is not able to participate in neurological exam because of patient's current mental status PSYCH: Patient cannot participate in a neurologic and psych exam because of the patient's current mental status SKIN: No significant ecchymosis, rash, ulcerations or signs of pruritus noted. MUSCULOSKELETAL EXAM: No significant joint swelling noted. Results Laboratory Results: 06/10/17 05:45 06/10/17 05:45 06/10/17 06/10/17 05:45 05:45 WBC 10.7 H RBC 3.65 L Hgb 12.7 Hct 37.8 MCV 104 H MCH 34.9 H MCHC 33.7 RDW 15.0 H Plt Count 112 L Seg Neutrophils % 75.4 Lymphocytes % 13.6 Monocytes % 10.8 Eosinophils % 0.0 Basophils % 0.2 Absolute Neutrophils 8.1 Absolute Lymphocytes 1.5 Absolute Monocytes 1.2 Absolute Eosinophils 0.0 Absolute Basophils 0.0 Sodium 139.1 Potassium 4.9 D Chloride 109 H Carbon Dioxide 22 Anion Gap 8 BUN 16 Creatinine 0.93 Est GFR ( Amer) > 60 Est GFR (Non-Af Amer) 57 L Glucose 144 H Calcium 8.8 Magnesium 2.6 H D Total Bilirubin 0.6 AST 120 H ALT 39 Alkaline Phosphatase 111 Total Protein 5.9 L Albumin 3.4 L Triglycerides 120 Cholesterol 157.76 LDL Cholesterol Direct 70 VLDL Cholesterol 24.0 HDL Cholesterol 65 06/10/17 06/10/17 05:45 11:39 Troponin I 20.900 18.700 EKG Comments: Sinus rhythm/sinus tachycardia with left bundle branch block pattern, frequent APCs noted. Impressions: Chest X-Ray 06/09/17 21:06 IMPRESSION: Congestive heart failure. Assessment & Plan - Diagnosis (1) Non-STEMI (non-ST elevated myocardial infarction) Is this a current diagnosis for this admission?: Yes (2) CHF (congestive heart failure) Is this a current diagnosis for this admission?: Yes (3) Dementia Qualifiers: Dementia type: unspecified type Dementia behavioral disturbance: without behavioral disturbance Qualified Code(s): F03.90 - Unspecified dementia without behavioral disturbance Is this a current diagnosis for this admission?: Yes (4) Acute respiratory failure with hypoxia Is this a current diagnosis for this admission?: Yes (5) Multifocal atrial tachycardia Is this a current diagnosis for this admission?: Yes - Notes Notes: Non-STEMI: Patient with left bundle branch block pattern. Patient not a candidate for thrombolytics. Patient has been placed on an adequate antianginal regimen. Patient to be treated only with conservative management plans. CHF: Continue BiPAP therapy. Will schedule patient for echocardiogram in the morning. Currently continue with diuretics, digoxin and beta-blockers. Acute respiratory failure: Family does not want intubation. At this point patient on bilevel therapy with oxygen supplementation. Currently maintaining oxygenation. Multifocal atrial tachycardia: Noted on EKG. Continue with beta-rg therapy. May consider amiodarone therapy if patient goes into atrial fibrillation with rapid ventricular response. - Time Time Spent: 30 to 50 Minutes - CODE STATUS : was discussed, patient remains DO NOT RESUSCITATE. Surrogate decision-maker unchanged. Multiple medical problems were addressed. More than 50% of the time spent coordinating care, discussing management plans with involved caregivers. Management plans discussed with involved personnels. Medical decision making was of moderate to high complexity, patient's has multiple comorbidities. Medications reviewed and adjusted accordingly: Yes
[2017-06-10] MEDS: DONEPEZIL HCL 5 MG TABLET PO SCH (21:21)
[2017-06-10] MEDS: SERTRALINE HCL 50 MG TABLET PO SCH (21:21)
[2017-06-10] MEDS ORDERED: (PENDING PHARMACY ID) (Donepezil Hcl [Aricept] 10 MG) PO SCH (22:00)
--- NOTE | 2017-06-10 22:41 | EKG REPORT ---
SEVERITY:- ABNORMAL ECG - SINUS RHYTH WITH SHORT RUN OF PAT LEFT BUNDLE BRANCH BLOCK : Confirmed by: Lashae Gómez 10-Jun-2017 22:40:26
[2017-06-11 05:15] LABS: AMORPHOUS SEDIMENT,URINE TRACE /HPF; APPEARANCE,URINE SLIGHTLY-CLOUDY; BILIRUBIN,URINE NEGATIVE (NEGATIVE); COLOR,URINE YELLOW; GLUCOSE, URINE NEGATIVE (NEGATIVE); KETONES,URINE NEGATIVE (NEGATIVE); LEUKOCYTE ESTERASE,URINE MODERATE (NEGATIVE); NITRITE,URINE POSITIVE (NEGATIVE); PROTEIN,URINE NEGATIVE (NEGATIVE); URINE SPECIFIC GRAVITY 1.019; UROBILINOGEN,URINE NEGATIVE mg/dL (<2.0)
[2017-06-11] MEDS: FUROSEMIDE INJ/PF 20 MG/2 ML SDV IV SCH ×2 (05:36→18:30)
[2017-06-11 07:32] LABS: HEMATOCRIT 36.5 % (36.0-47.0); HEMOGLOBIN 12.5 g/dL (12.0-15.5); MEAN CORPUSCULAR HEMOGLOBIN 34.8 pg (27.0-33.4); MEAN CORPUSCULAR HGB CONC 34.2 g/dL (32.0-36.0); MEAN CORPUSCULAR VOLUME 102 fl (80-97); PLATELET COUNT 113 10^3/uL (150-450); RED BLOOD COUNT 3.59 10^6/uL (3.72-5.28); WHITE BLOOD COUNT 10.3 10^3/uL (4.0-10.5)
[2017-06-11 07:54] LABS: ANION GAP 8 (5-19); BLOOD UREA NITROGEN 26 mg/dL (7-20); CALCIUM 8.7 mg/dL (8.4-10.2); CARBON DIOXIDE 26 mmol/L (22-30); CHLORIDE 101 mmol/L (98-107); GLUCOSE 104 mg/dL (75-110); POTASSIUM 3.3 mmol/L (3.6-5.0); SODIUM 134.6 mmol/L (137-145)
[2017-06-11] MEDS ORDERED: (PENDING PHARMACY ID) (Loratadine [Claritin] 10 MG) PO SCH (10:00)
[2017-06-11] MEDS ORDERED: LISINOPRIL 10 MG TABLET PO SCH (10:00)
--- NOTE | 2017-06-11 10:04 | EKG REPORT ---
SEVERITY:- ABNORMAL ECG - SINUS RHYTHM, APCs LEFT BUNDLE BRANCH BLOCK : Confirmed by: Lashae Gómez 11-Jun-2017 10:02:20
--- NOTE | 2017-06-11 10:04 | EKG REPORT ---
SEVERITY:- ABNORMAL ECG - SINUS RHYTHM MULTIPLE ATRIAL PREMATURE COMPLEXES LEFT BUNDLE BRANCH BLOCK : Confirmed by: Lashae Gómez 11-Jun-2017 10:02:27
[2017-06-11] MEDS: METOPROLOL SUCCINATE 50 MG TAB.SR.24H PO SCH (10:12)
[2017-06-11] MEDS: ALLOPURINOL 100 MG TABLET PO SCH (10:12)
[2017-06-11] MEDS: MAGNESIUM OXIDE 400 MG TABLET PO SCH (10:13)
[2017-06-11] MEDS: ASPIRIN 81 MG TABLET, ENT COATED PO SCH (10:14)
[2017-06-11] MEDS: LORATADINE 10 MG TABLET PO SCH (10:14)
[2017-06-11] MEDS: NITROGLYCERIN 2.5 MG (0.1 MG/HR) PATCH.TD24 TD SCH (10:17)
[2017-06-11] MEDS: PANTOPRAZOLE SODIUM 40 MG VIAL IV SCH (10:17)
[2017-06-11 11:34] LABS: ARTERIAL BLOOD BASE EXCESS 1.2 mmol/L; ARTERIAL BLOOD H2CO3 0.96 mmol/L (1.05-1.35); ARTERIAL BLOOD HCO3 23.8 mmol/L (20-26); ARTERIAL BLOOD O2 SATURATION 91.8 % (94-98); ARTERIAL BLOOD PH 7.49 (7.35-7.45); ARTERIAL BLOOD PO2 56.2 mmHg (80-100); ARTERIAL BLOOD TOTAL CO2 24.8 mmol/L (21-25)
[2017-06-11 11:35] LABS: ARTERIAL BLOOD FIO2 4L
--- NOTE | 2017-06-11 11:40 | XCELERA REPORT ---
[address] [address] Transthoracic Echocardiogram Report Name: NALINI MARSH Age: 87 yrs Gender: Female : 1930 Patient Status: Inpatient Patient Location: [address] [place] [address] Study Date: 06/11/2017 09:43 AM Height: 60 in Weight: 112 lb BSA: 1.5 m2 Procedure: A complete two-dimensional transthoracic echocardiogram was performed (2D, M-mode, spectral and color flow Doppler). The study was technically difficult with many images being suboptimal in quality. Reason For Study: chf Ordering Physician: LAURO JAVIER Performed By: Yadira Neal Interpretation Summary Left ventricular systolic function is mild to moderately reduced. The Ejection Fraction estimate is 40-45% Doppler measurements suggest pseudonormalized left ventricular relaxation, which is associated with grade II/IV or mild to moderate diastolic dysfunction There is mild concentric left ventricular hypertrophy. The left ventricle is grossly normal size. Septal motion is consistent with conduction abnormality The right ventricle is mildly dilated. Right ventricular function cannot be assessed due to poor image quality. The right atrium is mildly dilated. The left atrial size is normal. There is a trace to mild amount of mitral regurgitation There is no mitral valve stenosis. There is a trace amount of aortic regurgitation There is no aortic valve stenosis There is a trace or physiologic amount of tricuspid regurgitation Tricuspid regurgitation jet envelope not well defined to measure RV systolic pressure accurately. The pulmonic valve is not well visualized. The aortic root is not well visualized. The inferior vena cava was not well visualized There is no pericardial effusion. MMode/2D Measurements & Calculations RVDd: 2.2 cm LVIDd: 4.3 cm FS: 20.9 % Ao root diam: 2.7 cm IVSd: 1.2 cm LVIDs: 3.4 cm EDV(Teich): 81.9 ml LVPWd: 1.2 cm ESV(Teich): 46.9 ml Ao root area: 5.5 cm2 EF(Teich): 42.8 % LA dimension: 3.2 cm Doppler Measurements & Calculations MV E max wade: MV P1/2t max wade: Ao V2 max: LV V1 max P.2 cm/sec 101.8 cm/sec 133.9 cm/sec 2.8 mmHg MV A max wade: MV P1/2t: 54.6 msec Ao max PG: LV V1 max: 100.0 cm/sec 7.2 mmHg 83.9 cm/sec MV E/A: 1.0 MVA(P1/2t): 4.0 cm2 MV dec slope: 545.9 cm/sec2 PA V2 max: TR max wade: 106.7 cm/sec 238.9 cm/sec PA max P.6 mmHgTR max P.8 mmHg Left Ventricle The left ventricle is grossly normal size. There is mild concentric left ventricular hypertrophy. Left ventricular systolic function is mild to moderately reduced. The Ejection Fraction estimate is 40-45%. Doppler measurements suggest pseudonormalized left ventricular relaxation, which is associated with grade II/IV or mild to moderate diastolic dysfunction. Septal motion is consistent with conduction abnormality. Right Ventricle The right ventricle is mildly dilated. Right ventricular function cannot be assessed due to poor image quality. Atria The right atrium is mildly dilated. The left atrial size is normal. Mitral Valve There is mild mitral annular calcification. There is no mitral valve stenosis. There is a trace to mild amount of mitral regurgitation. Aortic Valve The aortic valve is not well visualized secondary to technical limitations. There is no aortic valve stenosis. There is a trace amount of aortic regurgitation. Tricuspid Valve The tricuspid valve is not well visualized secondary to technical limitations. There is no tricuspid stenosis. There is a trace or physiologic amount of tricuspid regurgitation. Tricuspid regurgitation jet envelope not well defined to measure RV systolic pressure accurately. Pulmonic Valve The pulmonic valve is not well visualized. Great Vessels The aortic root is not well visualized. The inferior vena cava was not well visualized. Effusions There is no pericardial effusion. : LAURO JAVIER > Lashae Gómez
[2017-06-11 11:43] LABS: APPEARANCE,URINE SLIGHTLY-CLOUDY; BILIRUBIN,URINE NEGATIVE (NEGATIVE); COLOR,URINE YELLOW; GLUCOSE, URINE NEGATIVE (NEGATIVE); KETONES,URINE NEGATIVE (NEGATIVE); LEUKOCYTE ESTERASE,URINE LARGE (NEGATIVE); NITRITE,URINE POSITIVE (NEGATIVE); PROTEIN,URINE NEGATIVE (NEGATIVE); URINE SPECIFIC GRAVITY 1.009; UROBILINOGEN,URINE NEGATIVE mg/dL (<2.0)
[2017-06-11] MEDS: ENOXAPARIN SODIUM INJ 60 MG/0.6 ML DISP.SYRIN SUBCUT SCH (12:29)
[2017-06-11] MEDS: POTASSIUM CHLORIDE 10 MEQ TABLET.SA PO SCH ×2 (14:44→21:45)
--- NOTE | 2017-06-11 17:30 | PDOC PROGRESS REPORT ---
Subjective Progress Note for:: 06/11/17 Subjective:: No complaints. Daughter at bedside and updated her about her mother's medical condition. Review of systems All organ systems evaluated and negative except as in subjective All significant laboratories and diagnostics have been reviewed Reason For Visit: HEART FAILURE Physical Exam Vital Signs: Temp Pulse Resp BP Pulse Ox 99.5 F 69 26 H 109/90 H 97 06/11/17 07:37 06/11/17 07:37 06/11/17 07:37 06/11/17 07:37 06/11/17 07:37 Intake & Output 06/10/17 06/11/17 06/12/17 06:59 06:59 06:59 Intake Total 900 1152 Output Total 400 4250 Balance 500 -3098 Weight 51 kg 50.5 kg General appearance: PRESENT: cooperative, thin Head exam: PRESENT: atraumatic, normocephalic Eye exam: PRESENT: conjunctiva pink, EOMI, PERRLA Ear exam: PRESENT: normal external ear exam, TM's normal bilaterally Mouth exam: PRESENT: moist Neck exam: PRESENT: full ROM. ABSENT: JVD, lymphadenopathy Respiratory exam: PRESENT: crackles, decreased breath sounds Cardiovascular exam: PRESENT: irregular rhythm. ABSENT: diastolic murmur, systolic murmur Vascular exam: PRESENT: normal capillary refill GI/Abdominal exam: PRESENT: normal bowel sounds, soft. ABSENT: tenderness Extremities exam: PRESENT: full ROM, +1 edema. ABSENT: clubbing Musculoskeletal exam: PRESENT: ambulatory Neurological exam: PRESENT: alert, other - Hard of hearing and pleasantly demented Psychiatric exam: PRESENT: appropriate affect, normal mood Skin exam: PRESENT: erythema, normal color Results Laboratory Results: 06/11/17 07:02 06/11/17 07:02 06/11/17 06/11/17 06/11/17 04:25 07:02 07:02 WBC 10.3 RBC 3.59 L Hgb 12.5 Hct 36.5 MCV 102 H MCH 34.8 H MCHC 34.2 RDW 15.0 H Plt Count 113 L Carbonic Acid HCO3/H2CO3 Ratio ABG pH ABG pCO2 ABG pO2 ABG HCO3 ABG O2 Saturation ABG Base Excess FiO2 Sodium 134.6 L Potassium 3.3 L Chloride 101 Carbon Dioxide 26 Anion Gap 8 BUN 26 H Creatinine 0.81 Est GFR ( Amer) > 60 Est GFR (Non-Af Amer) > 60 Glucose 104 Calcium 8.7 Magnesium 2.0 Urine Color YELLOW Urine Appearance SLIGHTLY-CLOUDY Urine pH 6.0 Ur Specific [place] 1.019 Urine Protein NEGATIVE Urine Glucose (UA) NEGATIVE Urine Ketones NEGATIVE Urine Blood NEGATIVE Urine Nitrite POSITIVE H Ur Leukocyte Esterase MODERATE H Urine WBC (Auto) >182 Urine RBC (Auto) 7 06/11/17 06/11/17 10:50 11:15 WBC RBC Hgb Hct MCV MCH MCHC RDW Plt Count Carbonic Acid 0.96 L HCO3/H2CO3 Ratio 24:1 ABG pH 7.49 H ABG pCO2 32.0 L ABG pO2 56.2 L ABG HCO3 23.8 ABG O2 Saturation 91.8 L ABG Base Excess 1.2 FiO2 4L Sodium Potassium Chloride Carbon Dioxide Anion Gap BUN Creatinine Est GFR ( Amer) Est GFR (Non-Af Amer) Glucose Calcium Magnesium Urine Color YELLOW Urine Appearance SLIGHTLY-CLOUDY Urine pH 6.0 Ur Specific [place] 1.009 Urine Protein NEGATIVE Urine Glucose (UA) NEGATIVE Urine Ketones NEGATIVE Urine Blood SMALL H Urine Nitrite POSITIVE H Ur Leukocyte Esterase LARGE H Urine WBC (Auto) 130 Urine RBC (Auto) 4 06/10/17 06/10/17 06/11/17 05:45 11:39 07:02 Troponin I 20.900 18.700 8.930 Impressions: Chest X-Ray 06/09/17 21:06 IMPRESSION: Congestive heart failure. Assessment & Plan - Diagnosis (1) Acute respiratory failure with hypoxia Is this a current diagnosis for this admission?: Yes Plan: On BiPAP and continue oxygen supplementation (2) Atrial fibrillation Qualifiers: Atrial fibrillation type: chronic Qualified Code(s): I48.2 - Chronic atrial fibrillation Is this a current diagnosis for this admission?: Yes Plan: Rate stable. Continue Toprol-XL (3) CHF (congestive heart failure) Is this a current diagnosis for this admission?: Yes Plan: Echocardiogram shows a mixed pattern of systolic and diastolic dysfunction. Will continue present management (4) Dementia Qualifiers: Dementia type: unspecified type Dementia behavioral disturbance: without behavioral disturbance Qualified Code(s): F03.90 - Unspecified dementia without behavioral disturbance Is this a current diagnosis for this admission?: Yes Plan: Supportive and continue outpatient regimen (5) Hypokalemia Is this a current diagnosis for this admission?: Yes Plan: Replace orally and will trend (6) Hypomagnesemia Is this a current diagnosis for this admission?: Yes Plan: Replaced and will trend since on IV diuresis (7) Non-STEMI (non-ST elevated myocardial infarction) Is this a current diagnosis for this admission?: Yes Plan: Discontinue Lovenox subcu. Daughter in agreement with medical management. - Time Time Spent with patient: 15-24 minutes Medications reviewed and adjusted accordingly: Yes Anticipated discharge: Home with Homehealth Within: within 72 hours - Inpatient Certification Based on my medical assessment, after consideration of the patient's comorbidities, presenting symptoms, or acuity I expect that the services needed warrant INPATIENT care.: Yes I certify that my determination is in accordance with my understanding of Medicare's requirements for reasonable and necessary INPATIENT services [42 CFR 412.3e].: Yes Medical Necessity: Need Close Monitoring Due to Risk of Patient Decompensation, Need For Continuous Telemetry Monitoring
[2017-06-11] MEDS: ATORVASTATIN CALCIUM 80 MG TABLET PO SCH (18:31)
--- NOTE | 2017-06-11 19:43 | PDOC PROGRESS REPORT ---
Subjective Progress Note for:: 06/11/17 Subjective:: Patient seems to be doing somewhat better and is showing some improvement in general status. Patient currently on oxygen supplementation by nasal cannula. Respiratory status has improved. Patient is not noted to have any chest arm or neck discomfort. Patient not noted to have or describing any PND, orthopnea.. Patient not noted to have fever chills. Patient does not seem to be in any other significant discomfort. Patient is maintaining slightly tachycardic rhythm with left bundle branch block pattern and frequent APCs. System review: No significant changes Medications reviewed. Reason For Visit: HEART FAILURE Physical Exam Vital Signs: Temp Pulse Resp BP Pulse Ox 99.1 F 84 22 H 122/34 L 95 06/11/17 15:40 06/11/17 19:00 06/11/17 15:40 06/11/17 15:40 06/11/17 15:40 Intake & Output 06/10/17 06/11/17 06/12/17 06:59 06:59 06:59 Intake Total 900 1152 418 Output Total 400 4250 400 Balance 500 -3098 18 Weight 51 kg 50.5 kg Exam: GENERAL: well-nourished and in no acute distress. Patient is alert but not oriented to place time or person. HEAD: Atraumatic, normocephalic. EYES: Pupils equal round and reactive to light, extraocular movements intact, sclera anicteric, conjunctiva are normal. ENT: TMs normal, nares patent, oropharynx clear without exudates. Moist mucous membranes. No oral ulcerations or bleeding gums noted NECK: supple without lymphadenopathy or JVD. Trachea is central. No cervical or axillary lymphadenopathy noted. Carotids are 2+ LUNGS: Breath sounds bibasilar fine crackles at bases. No significant dullness noted. CHEST: Palpation of chest wall shows no significant chest wall tenderness. 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 ABDOMEN: Soft, no significant tenderness appreciated, normoactive bowel sounds. No guarding, no rebound. No rigidity noted . No masses appreciated. EXTREMITIES: Pedal pulses are 1-2+, no calf tenderness noted, Trace + pedal edema noted. No clubbing or cyanosis. NEUROLOGICAL: Patient is alert but is not able to participate in neurological exam because of patient's current mental status PSYCH: Patient cannot participate in a neurologic and psych exam because of the patient's current mental status SKIN: No significant ecchymosis, rash, ulcerations or signs of pruritus noted. MUSCULOSKELETAL EXAM: No significant joint swelling noted. Results Laboratory Results: 06/11/17 07:02 06/11/17 07:02 06/11/17 06/11/17 06/11/17 04:25 07:02 07:02 WBC 10.3 RBC 3.59 L Hgb 12.5 Hct 36.5 MCV 102 H MCH 34.8 H MCHC 34.2 RDW 15.0 H Plt Count 113 L Carbonic Acid HCO3/H2CO3 Ratio ABG pH ABG pCO2 ABG pO2 ABG HCO3 ABG O2 Saturation ABG Base Excess FiO2 Sodium 134.6 L Potassium 3.3 L Chloride 101 Carbon Dioxide 26 Anion Gap 8 BUN 26 H Creatinine 0.81 Est GFR ( Amer) > 60 Est GFR (Non-Af Amer) > 60 Glucose 104 Calcium 8.7 Magnesium 2.0 Urine Color YELLOW Urine Appearance SLIGHTLY-CLOUDY Urine pH 6.0 Ur Specific [place] 1.019 Urine Protein NEGATIVE Urine Glucose (UA) NEGATIVE Urine Ketones NEGATIVE Urine Blood NEGATIVE Urine Nitrite POSITIVE H Ur Leukocyte Esterase MODERATE H Urine WBC (Auto) >182 Urine RBC (Auto) 7 06/11/17 06/11/17 10:50 11:15 WBC RBC Hgb Hct MCV MCH MCHC RDW Plt Count Carbonic Acid 0.96 L HCO3/H2CO3 Ratio 24:1 ABG pH 7.49 H ABG pCO2 32.0 L ABG pO2 56.2 L ABG HCO3 23.8 ABG O2 Saturation 91.8 L ABG Base Excess 1.2 FiO2 4L Sodium Potassium Chloride Carbon Dioxide Anion Gap BUN Creatinine Est GFR ( Amer) Est GFR (Non-Af Amer) Glucose Calcium Magnesium Urine Color YELLOW Urine Appearance SLIGHTLY-CLOUDY Urine pH 6.0 Ur Specific [place] 1.009 Urine Protein NEGATIVE Urine Glucose (UA) NEGATIVE Urine Ketones NEGATIVE Urine Blood SMALL H Urine Nitrite POSITIVE H Ur Leukocyte Esterase LARGE H Urine WBC (Auto) 130 Urine RBC (Auto) 4 06/10/17 06/10/17 06/11/17 05:45 11:39 07:02 Troponin I 20.900 18.700 8.930 EKG Comments: Lead EKG is reviewed. It shows sinus rhythm, left bundle branch block pattern and frequent APCs. Impressions: Chest X-Ray 06/09/17 21:06 IMPRESSION: Congestive heart failure. Assessment & Plan - Diagnosis (1) Non-STEMI (non-ST elevated myocardial infarction) Is this a current diagnosis for this admission?: Yes (2) CHF (congestive heart failure) Is this a current diagnosis for this admission?: Yes (3) Dementia Qualifiers: Dementia type: unspecified type Dementia behavioral disturbance: without behavioral disturbance Qualified Code(s): F03.90 - Unspecified dementia without behavioral disturbance Is this a current diagnosis for this admission?: Yes (4) Acute respiratory failure with hypoxia Is this a current diagnosis for this admission?: Yes (5) Multifocal atrial tachycardia Is this a current diagnosis for this admission?: Yes - Notes Notes: Non-STEMI: Patient currently being adequately treated with anticoagulation, antiplatelet, beta-rg therapy. If patient blood pressure can tolerate consider adding NEIL inhibitor/ARB therapy. Patient also on statin therapy. Patient has shown significant improvement in his general condition. Congestive heart failure: This seems clinically improved. Patient was noted to have pulmonary edema on chest x-ray. Clinically she has improved continue diuretic therapy. Acute respiratory failure with hypoxemia: This condition has improved continue O2 supplementation. This was related to CHF with some underlying COPD. Multifocal atrial tachycardia: Heart rates somewhat better. Continue with beta- rg therapy. - Time Time with patient: Greater than 35 minutes - CODE STATUS : was discussed, patient remains DO NOT RESUSCITATE. Surrogate decision-maker unchanged. Multiple medical problems were addressed. More than 50% of the time spent coordinating care, discussing management plans with involved caregivers. Management plans discussed with involved personnels. Medical decision making was of moderate to high complexity, patient's has multiple comorbidities. Medications reviewed and adjusted accordingly: Yes
[2017-06-11] MEDS ORDERED: POTASSIUM CHLORIDE 10 MEQ TABLET.SA PO ONE (21:36)
[2017-06-11] MEDS: DONEPEZIL HCL 5 MG TABLET PO SCH (21:44)
[2017-06-11] MEDS: SERTRALINE HCL 50 MG TABLET PO SCH (21:44)
[2017-06-12 06:18] LABS: ABSOLUTE LYMPHOCYTES (AUTO) 2.3 10^3/uL (0.5-4.7); ABSOLUTE MONOCYTES (AUTO) 1.6 10^3/uL (0.1-1.4); ABSOLUTE NEUT (AUTO) 6.9 10^3/uL (1.7-8.2); BASOPHILS % (AUTO) 0.3 % (0-2); HEMOGLOBIN 12.2 g/dL (12.0-15.5); MEAN CORPUSCULAR HEMOGLOBIN 34.7 pg (27.0-33.4); MEAN CORPUSCULAR HGB CONC 33.8 g/dL (32.0-36.0); MEAN CORPUSCULAR VOLUME 103 fl (80-97); MONOCYTES % (AUTO) 14.7 % (3-13); PLATELET COUNT 118 10^3/uL (150-450); RED CELL DISTRIBUTION WIDTH 14.9 % (11.5-14.0); TOTAL CELLS COUNTED % (AUTO) 100 %; WHITE BLOOD COUNT 10.8 10^3/uL (4.0-10.5)
[2017-06-12] MEDS: FUROSEMIDE INJ/PF 20 MG/2 ML SDV IV SCH (06:26)
[2017-06-12 06:28] LABS: ANION GAP 9 (5-19); BLOOD UREA NITROGEN 30 mg/dL (7-20); CALCIUM 9.2 mg/dL (8.4-10.2); CARBON DIOXIDE 23 mmol/L (22-30); CHLORIDE 102 mmol/L (98-107); GLUCOSE 102 mg/dL (75-110); MAGNESIUM 2.1 mg/dL (1.6-2.3); SODIUM 133.8 mmol/L (137-145)
[2017-06-12 06:36] LABS: POTASSIUM 5.1 mmol/L (3.6-5.0)
[2017-06-12] MEDS: POTASSIUM CHLORIDE 10 MEQ TABLET.SA PO SCH (06:45)
[2017-06-12] MEDS: FONDAPARINUX SODIUM INJ 2.5 MG/0.5 ML DISP.SYRIN SUBCUT SCH (09:37)
[2017-06-12] MEDS: NITROGLYCERIN 2.5 MG (0.1 MG/HR) PATCH.TD24 TD SCH (09:39)
[2017-06-12] MEDS: LORATADINE 10 MG TABLET PO SCH (09:40)
[2017-06-12] MEDS: METOPROLOL SUCCINATE 50 MG TAB.SR.24H PO SCH (09:41)
[2017-06-12] MEDS: ALLOPURINOL 100 MG TABLET PO SCH (09:41)
[2017-06-12] MEDS: ASPIRIN 81 MG TABLET, ENT COATED PO SCH (09:42)
[2017-06-12] MEDS: MAGNESIUM OXIDE 400 MG TABLET PO SCH (09:42)
[2017-06-12] MEDS: LANSOPRAZOLE 30 MG TAB.RAP.DR PO SCH (09:43)
[2017-06-12] MEDS ORDERED: OSELTAMIVIR PHOSPHATE 75 MG CAPSULE PO SCH (11:00)
[2017-06-12] MEDS ORDERED: SODIUM POLYSTYRENE SULFONATE 15 GM/60 ML PO ONE (11:00)
[2017-06-12] MEDS: LISINOPRIL 10 MG TABLET PO SCH (11:32)
[2017-06-12] MEDS: OSELTAMIVIR PHOSPHATE 6 MG/1 ML SUSP 60 ML PO SCH ×2 (12:01→23:38)
[2017-06-12] MEDS: IPRATROPIUM/ALBUTEROL 0.5-2.5 MG/3 ML AMPUL NEB SCH ×2 (14:15→20:31)
--- NOTE | 2017-06-12 14:45 | PDOC PROGRESS REPORT ---
Subjective Progress Note for:: 06/12/17 Subjective:: Patient seems to be doing much better and is showing significant improvement in general status. Patient currently on oxygen supplementation by nasal cannula. Respiratory status has improved. Patient is not noted to have any chest arm or neck discomfort. Patient not noted to have or describing any PND, orthopnea.. Patient not noted to have fever chills. Patient does not seem to be in any other significant discomfort. Telemetry shows sinus rhythm with left bundle branch block pattern and frequent APCs. System review: No significant changes Medications reviewed. Reason For Visit: HEART FAILURE Physical Exam Vital Signs: Temp Pulse Resp BP Pulse Ox 98.5 F 75 16 147/62 H 97 06/12/17 12:19 06/12/17 14:15 06/12/17 14:15 06/12/17 12:19 06/12/17 12:19 Intake & Output 06/11/17 06/12/17 06/13/17 06:59 06:59 06:59 Intake Total 1152 740 Output Total 4250 900 Balance -3098 -160 Weight 50.5 kg 53.8 kg Exam: GENERAL: well-nourished and in no acute distress. Alert and oriented x1. Patient not oriented to place and time this morning HEAD: Atraumatic, normocephalic. EYES: Pupils equal round and reactive to light, extraocular movements intact, sclera anicteric, conjunctiva are normal. ENT: TMs normal, nares patent, oropharynx clear without exudates. Moist mucous membranes. No oral ulcerations or bleeding gums noted NECK: supple without lymphadenopathy. Trachea is central. No cervical or axillary lymphadenopathy noted. Carotids are 2+, JVD 8-10cm LUNGS: Respiration seems nonlabored, no significant accessory muscle action noted. Breath sounds clear to auscultation bilaterally and equal noted. No wheezes rales or rhonchi noted. No significant dullness noted on percussion. CHEST: Palpation of the chest wall shows no significant chest wall tenderness. No other significant abnormalities noted. 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 ABDOMEN: Soft, no significant tenderness appreciated, normoactive bowel sounds. No guarding, no rebound. No rigidity noted . No masses appreciated. EXTREMITIES: Pedal pulses are 1-2+, no calf tenderness noted. No clubbing or cyanosis. Trace pedal edema noted NEUROLOGICAL: Focused neurological exam showed no significant neurologic deficit. Normal speech, no focal weakness appreciated. PSYCH: Normal mood, normal affect. Judgment and insight within normal limits. SKIN: No significant ecchymosis, rash, ulcerations or signs of pruritus noted. MUSCULOSKELETAL EXAM: No significant joint swelling noted. Results Laboratory Results: 06/12/17 05:40 06/12/17 05:40 06/12/17 06/12/17 05:40 05:40 WBC 10.8 H RBC 3.50 L Hgb 12.2 Hct 36.0 MCV 103 H MCH 34.7 H MCHC 33.8 RDW 14.9 H Plt Count 118 L Seg Neutrophils % 64.0 Lymphocytes % 21.0 Monocytes % 14.7 H Eosinophils % 0.0 Basophils % 0.3 Absolute Neutrophils 6.9 Absolute Lymphocytes 2.3 Absolute Monocytes 1.6 H Absolute Eosinophils 0.0 Absolute Basophils 0.0 Sodium 133.8 L Potassium 5.1 H D Chloride 102 Carbon Dioxide 23 Anion Gap 9 BUN 30 H Creatinine 0.81 Est GFR ( Amer) > 60 Est GFR (Non-Af Amer) > 60 Glucose 102 Calcium 9.2 Magnesium 2.1 06/10/17 06/10/17 06/11/17 05:45 11:39 07:02 Troponin I 20.900 18.700 8.930 EKG Comments: Shows sinus rhythm with frequent APCs and left bundle branch block pattern Impressions: Chest X-Ray 06/09/17 21:06 IMPRESSION: Congestive heart failure. Assessment & Plan - Diagnosis (1) Non-STEMI (non-ST elevated myocardial infarction) Is this a current diagnosis for this admission?: Yes (2) CHF (congestive heart failure) Is this a current diagnosis for this admission?: Yes (3) Dementia Qualifiers: Dementia type: unspecified type Dementia behavioral disturbance: without behavioral disturbance Qualified Code(s): F03.90 - Unspecified dementia without behavioral disturbance Is this a current diagnosis for this admission?: Yes (4) Acute respiratory failure with hypoxia Is this a current diagnosis for this admission?: Yes (5) Multifocal atrial tachycardia Is this a current diagnosis for this admission?: Yes - Notes Notes: Non-STEMI: Patient with left bundle branch block pattern. Patient has done well with medical management. Patient has been placed on an adequate antianginal regimen. Patient to be treated only with conservative management plans. CHF: 2D echocardiogram results reviewed. Currently continue with diuretics, NEIL inhibitors and beta-blockers. Acute respiratory failure: Family does not want intubation. Currently on nasal cannula oxygen supplementation. Currently maintaining oxygenation. Multifocal atrial tachycardia: Noted on EKG. seems improved on rhythm strips. Continue with beta-rg therapy. May consider amiodarone therapy if patient goes into atrial fibrillation with rapid ventricular response. - Time Time with patient: 15-25 minutes - CODE STATUS : was discussed, patient remains DO NOT RESUSCITATE. Surrogate decision-maker unchanged. Multiple medical problems were addressed. More than 50% of the time spent coordinating care, discussing management plans with involved caregivers. Management plans discussed with involved personnels. Medical decision making was of moderate to high complexity, patient's has multiple comorbidities. Medications reviewed and adjusted accordingly: Yes
--- NOTE | 2017-06-12 14:54 | PDOC PROGRESS REPORT ---
Subjective Progress Note for:: 06/12/17 Subjective:: No complaints. Review of systems All organ systems evaluated and negative except as in subjective All significant laboratories and diagnostics have been reviewed Reason For Visit: HEART FAILURE Physical Exam Vital Signs: Temp Pulse Resp BP Pulse Ox 98.5 F 75 20 149/66 H 100 06/12/17 08:33 06/12/17 08:33 06/12/17 08:33 06/12/17 08:33 06/12/17 08:33 Intake & Output 06/11/17 06/12/17 06/13/17 06:59 06:59 06:59 Intake Total 1152 740 Output Total 4250 900 Balance -3098 -160 Weight 50.5 kg 53.8 kg General appearance: PRESENT: no acute distress, cooperative, thin Head exam: PRESENT: atraumatic, normocephalic Eye exam: PRESENT: conjunctiva pink, EOMI, PERRLA Ear exam: PRESENT: normal external ear exam, TM's normal bilaterally Mouth exam: PRESENT: moist Neck exam: PRESENT: full ROM. ABSENT: JVD, lymphadenopathy, tenderness Respiratory exam: PRESENT: decreased breath sounds Cardiovascular exam: PRESENT: irregular rhythm. ABSENT: diastolic murmur, systolic murmur Vascular exam: PRESENT: normal capillary refill GI/Abdominal exam: PRESENT: normal bowel sounds, soft. ABSENT: tenderness Extremities exam: PRESENT: full ROM. ABSENT: joint swelling, pedal edema Musculoskeletal exam: PRESENT: ambulatory Neurological exam: PRESENT: alert, awake, oriented to person, oriented to place , oriented to time, oriented to situation, CN II-XII grossly intact Psychiatric exam: PRESENT: appropriate affect, normal mood Skin exam: PRESENT: intact, normal color Results Laboratory Results: 06/12/17 05:40 06/12/17 05:40 06/11/17 06/11/17 06/12/17 10:50 11:15 05:40 WBC 10.8 H RBC 3.50 L Hgb 12.2 Hct 36.0 MCV 103 H MCH 34.7 H MCHC 33.8 RDW 14.9 H Plt Count 118 L Seg Neutrophils % 64.0 Lymphocytes % 21.0 Monocytes % 14.7 H Eosinophils % 0.0 Basophils % 0.3 Absolute Neutrophils 6.9 Absolute Lymphocytes 2.3 Absolute Monocytes 1.6 H Absolute Eosinophils 0.0 Absolute Basophils 0.0 Carbonic Acid 0.96 L HCO3/H2CO3 Ratio 24:1 ABG pH 7.49 H ABG pCO2 32.0 L ABG pO2 56.2 L ABG HCO3 23.8 ABG O2 Saturation 91.8 L ABG Base Excess 1.2 FiO2 4L Sodium Potassium Chloride Carbon Dioxide Anion Gap BUN Creatinine Est GFR ( Amer) Est GFR (Non-Af Amer) Glucose Calcium Magnesium Urine Color YELLOW Urine Appearance SLIGHTLY-CLOUDY Urine pH 6.0 Ur Specific [place] 1.009 Urine Protein NEGATIVE Urine Glucose (UA) NEGATIVE Urine Ketones NEGATIVE Urine Blood SMALL H Urine Nitrite POSITIVE H Ur Leukocyte Esterase LARGE H Urine WBC (Auto) 130 Urine RBC (Auto) 4 06/12/17 05:40 WBC RBC Hgb Hct MCV MCH MCHC RDW Plt Count Seg Neutrophils % Lymphocytes % Monocytes % Eosinophils % Basophils % Absolute Neutrophils Absolute Lymphocytes Absolute Monocytes Absolute Eosinophils Absolute Basophils Carbonic Acid HCO3/H2CO3 Ratio ABG pH ABG pCO2 ABG pO2 ABG HCO3 ABG O2 Saturation ABG Base Excess FiO2 Sodium 133.8 L Potassium 5.1 H D Chloride 102 Carbon Dioxide 23 Anion Gap 9 BUN 30 H Creatinine 0.81 Est GFR ( Amer) > 60 Est GFR (Non-Af Amer) > 60 Glucose 102 Calcium 9.2 Magnesium 2.1 Urine Color Urine Appearance Urine pH Ur Specific [place] Urine Protein Urine Glucose (UA) Urine Ketones Urine Blood Urine Nitrite Ur Leukocyte Esterase Urine WBC (Auto) Urine RBC (Auto) 06/10/17 06/10/17 06/11/17 05:45 11:39 07:02 Troponin I 20.900 18.700 8.930 Impressions: Chest X-Ray 06/09/17 21:06 IMPRESSION: Congestive heart failure. Assessment & Plan - Diagnosis (1) Acute respiratory failure with hypoxia Is this a current diagnosis for this admission?: Yes Plan: Of BiPAP. On oxygen and will wean off as tolerated (2) Atrial fibrillation Qualifiers: Atrial fibrillation type: chronic Qualified Code(s): I48.2 - Chronic atrial fibrillation Is this a current diagnosis for this admission?: Yes Plan: Rate stable. Continue Toprol-XL. Cardizem not order because of decreased EF (3) CHF (congestive heart failure) Is this a current diagnosis for this admission?: Yes Plan: Echocardiogram shows a mixed pattern of systolic and diastolic dysfunction. Will continue present management (4) Dementia Qualifiers: Dementia type: unspecified type Dementia behavioral disturbance: without behavioral disturbance Qualified Code(s): F03.90 - Unspecified dementia without behavioral disturbance Is this a current diagnosis for this admission?: Yes Plan: Supportive and continue outpatient regimen (5) Hypokalemia Is this a current diagnosis for this admission?: Yes Plan: Replaced. Order a one-time dose of Kayexalate and trend (6) Hypomagnesemia Is this a current diagnosis for this admission?: Yes Plan: Replaced (7) Non-STEMI (non-ST elevated myocardial infarction) Is this a current diagnosis for this admission?: Yes Plan: Medical manage with aspirin, Lipitor, Toprol-XL and lisinopril (8) Viral syndrome Is this a current diagnosis for this admission?: Yes Plan: Noted patient having sniffles and cough. Will start Tamiflu - Time Time Spent with patient: 15-24 minutes Medications reviewed and adjusted accordingly: Yes Anticipated discharge: Acute Rehab Within: within 72 hours - Inpatient Certification Based on my medical assessment, after consideration of the patient's comorbidities, presenting symptoms, or acuity I expect that the services needed warrant INPATIENT care.: Yes I certify that my determination is in accordance with my understanding of Medicare's requirements for reasonable and necessary INPATIENT services [42 CFR 412.3e].: Yes Medical Necessity: Need Close Monitoring Due to Risk of Patient Decompensation, Need For Continuous Telemetry Monitoring
[2017-06-12] MEDS: ATORVASTATIN CALCIUM 80 MG TABLET PO SCH (17:43)
[2017-06-12] MEDS: FUROSEMIDE 20 MG TABLET PO SCH (17:43)
[2017-06-12] MEDS: BUDESONIDE NEB 0.5 MG/2 ML AMPUL NEB SCH (20:31)
[2017-06-12] MEDS: SERTRALINE HCL 50 MG TABLET PO SCH (21:55)
[2017-06-12] MEDS: DONEPEZIL HCL 5 MG TABLET PO SCH (21:55)
[2017-06-13 06:18] LABS: ABSOLUTE EOSINOPHILS # (AUTO) 0.1 10^3/uL (0.0-0.6); ABSOLUTE LYMPHOCYTES (AUTO) 2.8 10^3/uL (0.5-4.7); ABSOLUTE MONOCYTES (AUTO) 1.4 10^3/uL (0.1-1.4); ABSOLUTE NEUT (AUTO) 5.5 10^3/uL (1.7-8.2); BASOPHILS % (AUTO) 0.5 % (0-2); EOSINOPHILS % (AUTO) 0.9 % (0-6); HEMOGLOBIN 12.2 g/dL (12.0-15.5); LYMPHOCYTES % (AUTO) 28.7 % (13-45); MEAN CORPUSCULAR HEMOGLOBIN 34.9 pg (27.0-33.4); MEAN CORPUSCULAR VOLUME 103 fl (80-97); MONOCYTES % (AUTO) 14.1 % (3-13); PLATELET COUNT 133 10^3/uL (150-450); RED BLOOD COUNT 3.51 10^6/uL (3.72-5.28); RED CELL DISTRIBUTION WIDTH 14.6 % (11.5-14.0); SEGMENTED NEUTROPHILS % (AUTO) 55.8 % (42-78); TOTAL CELLS COUNTED % (AUTO) 100 %; WHITE BLOOD COUNT 9.9 10^3/uL (4.0-10.5)
[2017-06-13 06:45] LABS: ANION GAP 11 (5-19); BLOOD UREA NITROGEN 30 mg/dL (7-20); CALCIUM 8.9 mg/dL (8.4-10.2); CARBON DIOXIDE 23 mmol/L (22-30); CHLORIDE 101 mmol/L (98-107); GLUCOSE 114 mg/dL (75-110); MAGNESIUM 1.9 mg/dL (1.6-2.3); POTASSIUM 3.5 mmol/L (3.6-5.0); SODIUM 134.9 mmol/L (137-145)
[2017-06-13] MEDS ORDERED: POTASSIUM CHLORIDE 10 MEQ TABLET.SA PO ONE (07:24)
[2017-06-13] MEDS: BUDESONIDE NEB 0.5 MG/2 ML AMPUL NEB SCH ×2 (07:49→20:08)
[2017-06-13] MEDS: IPRATROPIUM/ALBUTEROL 0.5-2.5 MG/3 ML AMPUL NEB SCH ×3 (07:49→20:07)
--- NOTE | 2017-06-13 09:03 | EKG REPORT ---
SEVERITY:- ABNORMAL ECG - SINUS RHYTHM, WITH APCs LEFT BUNDLE BRANCH BLOCK : Confirmed by: Lashae Gómez 13-Jun-2017 09:02:38
[2017-06-13] MEDS: FONDAPARINUX SODIUM INJ 2.5 MG/0.5 ML DISP.SYRIN SUBCUT SCH (10:10)
[2017-06-13] MEDS: MAGNESIUM OXIDE 400 MG TABLET PO SCH (10:10)
[2017-06-13] MEDS: LORATADINE 10 MG TABLET PO SCH (10:11)
[2017-06-13] MEDS: METOPROLOL SUCCINATE 50 MG TAB.SR.24H PO SCH (10:11)
[2017-06-13] MEDS: ASPIRIN 81 MG TABLET, ENT COATED PO SCH (10:12)
[2017-06-13] MEDS: ALLOPURINOL 100 MG TABLET PO SCH (10:12)
[2017-06-13] MEDS: FUROSEMIDE 20 MG TABLET PO SCH ×2 (10:12→17:53)
[2017-06-13] MEDS: LANSOPRAZOLE 30 MG TAB.RAP.DR PO SCH (10:13)
[2017-06-13] MEDS: OSELTAMIVIR PHOSPHATE 6 MG/1 ML SUSP 60 ML PO SCH (10:13)
[2017-06-13] MEDS: NITROGLYCERIN 2.5 MG (0.1 MG/HR) PATCH.TD24 TD SCH (10:14)
--- NOTE | 2017-06-13 13:11 | PDOC PROGRESS REPORT ---
Subjective Progress Note for:: 06/13/17 Subjective:: Patient resting comfortably in bed without any complaints. Patient seems to be doing much better and is showing significant improvement in general status. Patient currently on oxygen supplementation by nasal cannula. Respiratory status has improved. Patient is not noted to have any chest arm or neck discomfort. Patient not noted to have or describing any PND, orthopnea.. Patient not noted to have fever chills. Patient does not seem to be in any other significant discomfort. Telemetry shows sinus rhythm with left bundle branch block pattern and frequent APCs. System review: No significant changes Medications reviewed. Reason For Visit: HEART FAILURE Physical Exam Vital Signs: Temp Pulse Resp BP Pulse Ox 99.3 F 78 22 H 120/46 L 95 06/13/17 11:57 06/13/17 11:57 06/13/17 11:57 06/13/17 11:57 06/13/17 11:57 Intake & Output 06/12/17 06/13/17 06/14/17 06:59 06:59 06:59 Intake Total 740 1399 Output Total 900 726 Balance -160 673 Weight 53.8 kg 53.6 kg Exam: GENERAL: well-nourished and in no acute distress. Patient is alert and oriented 2. HEAD: Atraumatic, normocephalic. EYES: Pupils equal round and reactive to light, extraocular movements intact, sclera anicteric, conjunctiva are normal. ENT: TMs normal, nares patent, oropharynx clear without exudates. Moist mucous membranes. No oral ulcerations or bleeding gums noted NECK: supple without lymphadenopathy or JVD. Trachea is central. No cervical or axillary lymphadenopathy noted. Carotids are 2+ LUNGS: Breath sounds bibasilar fine crackles at bases. No significant dullness noted. CHEST: Palpation of chest wall shows no significant chest wall tenderness. 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 ABDOMEN: Soft, no significant tenderness appreciated, normoactive bowel sounds. No guarding, no rebound. No rigidity noted . No masses appreciated. EXTREMITIES: Pedal pulses are 1-2+, no calf tenderness noted, Trace + pedal edema noted. No clubbing or cyanosis. NEUROLOGICAL: Patient is alert, she is able to move all 4 extremities. No obvious neurologic deficit noted. PSYCH: Patient seems to have normal mood but full psych exam not performed. SKIN: No significant ecchymosis, rash, ulcerations or signs of pruritus noted. MUSCULOSKELETAL EXAM: No significant joint swelling noted. Results Laboratory Results: 06/13/17 06:00 06/13/17 06:00 06/13/17 06/13/17 06:00 06:00 WBC 9.9 RBC 3.51 L Hgb 12.2 Hct 36.0 MCV 103 H MCH 34.9 H MCHC 34.0 RDW 14.6 H Plt Count 133 L Seg Neutrophils % 55.8 Lymphocytes % 28.7 Monocytes % 14.1 H Eosinophils % 0.9 Basophils % 0.5 Absolute Neutrophils 5.5 Absolute Lymphocytes 2.8 Absolute Monocytes 1.4 Absolute Eosinophils 0.1 Absolute Basophils 0.0 Sodium 134.9 L Potassium 3.5 L Chloride 101 Carbon Dioxide 23 Anion Gap 11 BUN 30 H Creatinine 0.85 Est GFR ( Amer) > 60 Est GFR (Non-Af Amer) > 60 Glucose 114 H Calcium 8.9 Magnesium 1.9 06/10/17 06/10/17 06/11/17 05:45 11:39 07:02 Troponin I 20.900 18.700 8.930 EKG Comments: Telemetry strips reviewed. Sinus rhythm, bundle branch block pattern. No sustained tachycardia or bradycardia arrhythmias noted. Impressions: Chest X-Ray 06/09/17 21:06 IMPRESSION: Congestive heart failure. Assessment & Plan - Diagnosis (1) Non-STEMI (non-ST elevated myocardial infarction) Is this a current diagnosis for this admission?: Yes (2) CHF (congestive heart failure) Is this a current diagnosis for this admission?: Yes (3) Dementia Qualifiers: Dementia type: unspecified type Dementia behavioral disturbance: without behavioral disturbance Qualified Code(s): F03.90 - Unspecified dementia without behavioral disturbance Is this a current diagnosis for this admission?: Yes (4) Acute respiratory failure with hypoxia Is this a current diagnosis for this admission?: Yes (5) Multifocal atrial tachycardia Is this a current diagnosis for this admission?: Yes - Notes Notes: No new recommendation on this patient. She has done much better on current regimen which is being continued. Non-STEMI: Patient with left bundle branch block pattern. Patient has done well with medical management. Patient has been placed on an adequate antianginal regimen. Patient to be treated only with conservative management plans. CHF: 2D echocardiogram results reviewed. Currently continue with diuretics, NEIL inhibitors and beta-blockers. Acute respiratory failure: Family does not want intubation. Currently on nasal cannula oxygen supplementation. Currently maintaining oxygenation. Multifocal atrial tachycardia: Noted on EKG. seems improved on rhythm strips. Continue with beta-rg therapy. May consider amiodarone therapy if patient goes into atrial fibrillation with rapid ventricular response. - Time Time with patient: 15-25 minutes - CODE STATUS : was discussed, patient remains DO NOT RESUSCITATE. Surrogate decision-maker unchanged. Multiple medical problems were addressed. More than 50% of the time spent coordinating care, discussing management plans with involved caregivers. Management plans discussed with involved personnels. Medical decision making was of moderate to high complexity, patient's has multiple comorbidities. Medications reviewed and adjusted accordingly: Yes
--- NOTE | 2017-06-13 14:32 | PDOC PROGRESS REPORT ---
Subjective Progress Note for:: 06/13/17 Subjective:: No complaints. Review of systems All organ systems evaluated and negative except as in subjective All significant laboratories and diagnostics have been reviewed Reason For Visit: HEART FAILURE Physical Exam Vital Signs: Temp Pulse Resp BP Pulse Ox 97.5 F 78 20 108/39 L 95 06/13/17 05:18 06/13/17 05:18 06/13/17 05:18 06/13/17 05:18 06/13/17 05:18 Intake & Output 06/12/17 06/13/17 06/14/17 06:59 06:59 06:59 Intake Total 740 1399 Output Total 900 726 Balance -160 673 Weight 53.8 kg 53.6 kg General appearance: PRESENT: cooperative, thin Head exam: PRESENT: atraumatic, normocephalic Eye exam: PRESENT: conjunctiva pink, EOMI, PERRLA Ear exam: PRESENT: normal external ear exam Mouth exam: PRESENT: moist, neck supple Neck exam: PRESENT: full ROM. ABSENT: JVD, lymphadenopathy, tenderness Respiratory exam: PRESENT: clear to auscultation nadira Cardiovascular exam: PRESENT: RRR, systolic murmur. ABSENT: diastolic murmur Vascular exam: PRESENT: normal capillary refill GI/Abdominal exam: PRESENT: normal bowel sounds, soft. ABSENT: tenderness Extremities exam: PRESENT: full ROM. ABSENT: joint swelling, pedal edema Musculoskeletal exam: PRESENT: ambulatory Neurological exam: PRESENT: alert, awake, oriented to person Psychiatric exam: PRESENT: appropriate affect, normal mood Skin exam: PRESENT: intact, normal color Results Laboratory Results: 06/13/17 06:00 06/13/17 06:00 06/13/17 06/13/17 06:00 06:00 WBC 9.9 RBC 3.51 L Hgb 12.2 Hct 36.0 MCV 103 H MCH 34.9 H MCHC 34.0 RDW 14.6 H Plt Count 133 L Seg Neutrophils % 55.8 Lymphocytes % 28.7 Monocytes % 14.1 H Eosinophils % 0.9 Basophils % 0.5 Absolute Neutrophils 5.5 Absolute Lymphocytes 2.8 Absolute Monocytes 1.4 Absolute Eosinophils 0.1 Absolute Basophils 0.0 Sodium 134.9 L Potassium 3.5 L Chloride 101 Carbon Dioxide 23 Anion Gap 11 BUN 30 H Creatinine 0.85 Est GFR ( Amer) > 60 Est GFR (Non-Af Amer) > 60 Glucose 114 H Calcium 8.9 Magnesium 1.9 06/10/17 06/10/17 06/11/17 05:45 11:39 07:02 Troponin I 20.900 18.700 8.930 Impressions: Chest X-Ray 06/09/17 21:06 IMPRESSION: Congestive heart failure. Assessment & Plan - Diagnosis (1) Acute respiratory failure with hypoxia Is this a current diagnosis for this admission?: Yes Plan: Of BiPAP. On oxygen and will wean off as tolerated. Nurse advice to wean off oxygen (2) Atrial fibrillation Qualifiers: Atrial fibrillation type: paroxysmal Qualified Code(s): I48.0 - Paroxysmal atrial fibrillation Is this a current diagnosis for this admission?: Yes Plan: Currently on sinus with LBBB. Will place patient on Xarelto (3) Dementia Qualifiers: Dementia type: unspecified type Dementia behavioral disturbance: without behavioral disturbance Qualified Code(s): F03.90 - Unspecified dementia without behavioral disturbance Is this a current diagnosis for this admission?: Yes (4) CHF (congestive heart failure) Is this a current diagnosis for this admission?: Yes Plan: Echocardiogram shows a mixed pattern of systolic and diastolic dysfunction. Event deemed to be acute. Will continue present management. Order chest x-ray (5) Hypokalemia Is this a current diagnosis for this admission?: Yes Plan: Replace and trend (6) Hypomagnesemia Is this a current diagnosis for this admission?: Yes Plan: Replaced (7) Non-STEMI (non-ST elevated myocardial infarction) Is this a current diagnosis for this admission?: Yes Plan: Medical manage with aspirin, Lipitor, Toprol-XL and lisinopril (8) Viral syndrome Is this a current diagnosis for this admission?: Yes Plan: Noted patient having sniffles and cough. Will stop tamiflu - Time Time Spent with patient: 15-24 minutes Medications reviewed and adjusted accordingly: Yes Anticipated discharge: Home with Homehealth Within: within 48 hours - Inpatient Certification Based on my medical assessment, after consideration of the patient's comorbidities, presenting symptoms, or acuity I expect that the services needed warrant INPATIENT care.: Yes I certify that my determination is in accordance with my understanding of Medicare's requirements for reasonable and necessary INPATIENT services [42 CFR 412.3e].: Yes Medical Necessity: Need Close Monitoring Due to Risk of Patient Decompensation, Need For Continuous Telemetry Monitoring
--- NOTE | 2017-06-13 14:58 | RADIOLOGY REPORT (SQ) ---
EXAM DESCRIPTION: CHEST SINGLE VIEW COMPLETED DATE/TIME: 06/13/2017 2:50 pm REASON FOR STUDY: follow up chf COMPARISON: 06/09/2017. EXAM PARAMETERS: NUMBER OF VIEWS: One view. TECHNIQUE: Single frontal radiographic view of the chest acquired. RADIATION DOSE: NA LIMITATIONS: None. FINDINGS: LUNGS AND PLEURA: Improved aeration. Residual density in the left midlung. No pleural ef fusion. No pneumothorax. MEDIASTINUM AND HILAR STRUCTURES: No masses. Contour normal. HEART AND VASCULAR STRUCTURES: Heart normal in size. Normal vasculature. BONES: No acute findings. HARDWARE: None in the chest. OTHER: No other significant finding. IMPRESSION: IMPROVED AERATION. RESIDUAL DENSITY IN THE LEFT MIDLUNG. TECHNICAL DOCUMENTATION: JOB ID: [id number] [employer]- All Rights Reserved
[2017-06-13] MEDS: LISINOPRIL 10 MG TABLET PO SCH (15:05)
[2017-06-13] MEDS ORDERED: RIVAROXABAN 15 MG TABLET PO SCH (17:00)
[2017-06-13] MEDS: ATORVASTATIN CALCIUM 80 MG TABLET PO SCH (17:53)
[2017-06-13] MEDS: SERTRALINE HCL 50 MG TABLET PO SCH (21:44)
[2017-06-13] MEDS: DONEPEZIL HCL 5 MG TABLET PO SCH (21:44)
[2017-06-14 07:25] LABS: HEMATOCRIT 37.3 % (36.0-47.0); HEMOGLOBIN 12.6 g/dL (12.0-15.5); MEAN CORPUSCULAR HEMOGLOBIN 34.6 pg (27.0-33.4); MEAN CORPUSCULAR HGB CONC 33.7 g/dL (32.0-36.0); MEAN CORPUSCULAR VOLUME 103 fl (80-97); PLATELET COUNT 172 10^3/uL (150-450); RED BLOOD COUNT 3.63 10^6/uL (3.72-5.28); WHITE BLOOD COUNT 10.6 10^3/uL (4.0-10.5)
[2017-06-14] MEDS: BUDESONIDE NEB 0.5 MG/2 ML AMPUL NEB SCH (08:46)
[2017-06-14] MEDS: IPRATROPIUM/ALBUTEROL 0.5-2.5 MG/3 ML AMPUL NEB SCH ×2 (08:46→13:56)
[2017-06-14] MEDS: FONDAPARINUX SODIUM INJ 2.5 MG/0.5 ML DISP.SYRIN SUBCUT SCH (10:39)
[2017-06-14] MEDS: NITROGLYCERIN 2.5 MG (0.1 MG/HR) PATCH.TD24 TD SCH (10:41)
[2017-06-14] MEDS: ALLOPURINOL 100 MG TABLET PO SCH (10:42)
[2017-06-14] MEDS: ASPIRIN 81 MG TABLET, ENT COATED PO SCH (10:42)
[2017-06-14] MEDS: METOPROLOL SUCCINATE 50 MG TAB.SR.24H PO SCH (10:42)
[2017-06-14] MEDS: MAGNESIUM OXIDE 400 MG TABLET PO SCH (10:44)
[2017-06-14] MEDS: LANSOPRAZOLE 30 MG TAB.RAP.DR PO SCH (10:45)
[2017-06-14] MEDS: LORATADINE 10 MG TABLET PO SCH (10:45)
[2017-06-14] MEDS: FUROSEMIDE 20 MG TABLET PO SCH (11:07)
--- NOTE | 2017-06-14 12:04 | PDOC DISCHARGE SUMMARY ---
General - Admit/Disc Date/PCP Admission Date/Primary Care Provider: 06/09/17 22:55 Discharge Date: 06/14/17 - Discharge Diagnosis (1) Non-STEMI (non-ST elevated myocardial infarction) Is this a current diagnosis for this admission?: Yes (2) CHF (congestive heart failure) Is this a current diagnosis for this admission?: Yes (3) Acute respiratory failure with hypoxia Is this a current diagnosis for this admission?: Yes (4) Atrial fibrillation Is this a current diagnosis for this admission?: Yes (5) Dementia Is this a current diagnosis for this admission?: Yes (6) Hypokalemia Is this a current diagnosis for this admission?: Yes (7) Hypomagnesemia Is this a current diagnosis for this admission?: Yes (8) Viral syndrome Is this a current diagnosis for this admission?: Yes - Additional Information Resuscitation Status: Do Not Resuscitate Discharge Diet: Cardiac Discharge Activity: Activity As Tolerated Prescriptions: Atorvastatin Calcium [Lipitor 80 mg Tablet] 80 mg PO QPM #30 tablet Furosemide [Lasix 20 mg Tablet] 20 mg PO DAILY #30 tablet Lisinopril [Prinivil 10 mg Tablet] 20 mg PO DAILY@1200 #60 tablet Magnesium Oxide [Mag-Ox 400 mg Tablet] 400 mg PO DAILY #30 tablet Metoprolol Succinate [Toprol Xl 50 mg Tab.sr] 50 mg PO DAILY #30 tab.sr.24h Nitroglycerin [Nitro-Dur 2.5 mg (0.1 mg/Hr) Transdermal Ptch] 1 each TD DAILY # 30 patch.td24 Rivaroxaban [Xarelto 15 mg Tablet] 15 mg PO WSUPPER #30 tablet Home Medications: Allopurinol [Zyloprim 100 mg Tablet] 100 mg PO DAILY 06/10/17 Cholestyramine (with Sugar) [Cholestyramine Packet] 4 gm PO Q6HP PRN 06/10/17 Clobetasol Propionate/Emoll [Clobetasol Emollient 0.05% Crm] 15 gm TP BID Donepezil HCl [Aricept] 10 mg PO QHS 06/10/17 Ipratropium/Albuterol Sulfate [Duoneb 3 ml Ampul] 3 ml NEB RTQ8HP PRN 06/10/17 Loratadine [Claritin] 10 mg PO DAILY 06/10/17 Meclizine HCl [Antivert 25 mg Tablet] 25 mg PO Q8HP PRN 06/10/17 Multivitamin [Multiple Vitamins] 1 each PO DAILY 06/10/17 Pantoprazole Sodium [Protonix] 40 mg PO BID 06/10/17 Saccharomyces Boulardii [Florastor] 250 mg PO BID 06/10/17 Sertraline HCl [Zoloft] 100 mg PO QHS 06/10/17 Valacyclovir HCl [Valacyclovir] 2,000 mg PO DAILYP PRN 06/10/17 Aspirin [Ecotrin 81 mg EC Tablet] 81 mg PO DAILY tabec 06/14/17 Atorvastatin Calcium [Lipitor 80 mg Tablet] 80 mg PO QPM #30 tablet 06/14/17 Furosemide [Lasix 20 mg Tablet] 20 mg PO DAILY #30 tablet 06/14/17 Lisinopril [Prinivil 10 mg Tablet] 20 mg PO DAILY@1200 #60 tablet 06/14/17 Magnesium Oxide [Mag-Ox 400 mg Tablet] 400 mg PO DAILY #30 tablet 06/14/17 Metoprolol Succinate [Toprol Xl 50 mg Tab.sr] 50 mg PO DAILY #30 tab.sr.24h 04/19 Nitroglycerin [Nitro-Dur 2.5 mg (0.1 mg/Hr) Transdermal Ptch] 1 each TD DAILY # 30 patch.td24 06/14/17 Rivaroxaban [Xarelto 15 mg Tablet] 15 mg PO WSUPPER #30 tablet 06/14/17 History of Present Illness History of Present Illness: NALINI MARSH is a 87 year old female who resides at [facility]. Patient has history of A. fib, a flutter, dementia, Raynaud's disease and arthritis. She is a DNR. At about 2030 on 06/09/2017 patient developed shortness of breath. Patient was noted to be satting 58% on room air in no respiratory distress. Patient was diaphoretic and unable to breathe. Patient pulse was 130 most likely irregular because she has a history of A. fib. Patient was unable to provide any history as she was placed on BiPAP and resting. Patient's daughter stated that patient was seen at urgent care on day of admission as she had been coughing and appeared to be short of breath. They were unable to obtain a pulse ox due to her Raynaud's disease. Patient was placed on doxycycline and sent home. In ED patient was noted to have NSTEMI with a troponin of 4.310 and heart failure with a BNP of 6180. Patient was started on a nitroglycerin drip and placed on BiPAP. Hospitalist was called to admit patient for non-STEMI, acute congestive heart failure acute hypoxic respiratory failure Hospital Course Hospital Course: Patient was admitted to [facility]. Daughter wished for her mother to be treated medically. Patient was aggressively diuresed with further improvement of respiratory status and patient was able to be transition from BiPAP to oxygen and lastly to room air. Echocardiogram demonstrated an EF of 40-45% and findings were consistent with congestive heart failure due systolic and diastolic dysfunction. Patient was placed on lisinopril, Toprol XL, baby aspirin and lipitor for the treatment of Non-STEMI. Hypokalemia and hypomagnesemia were replaced prior to discharge. Due to history of paroxysmal atrial fibrillation patient was placed on Xarelto. Daughter had been advised in need to watch for bleeding which is the most common complication. Her daughter had been advised that Cardizem has been discontinued and instead patient was placed on Toprol-XL which will treat paroxysmal atrial fibrillation as well. Patient experienced a short bout of runny nose and cough which was deemed to be viral in nature. Patient recuperated well with conservative medical management and since she had achieved maximum benefit of hospitalization stay prompted to discharge. Physical Exam Vital Signs: Temp Pulse Resp BP Pulse Ox 98.8 F 87 16 134/60 H 90 L 06/14/17 07:42 06/14/17 08:48 06/14/17 08:48 06/14/17 07:42 06/14/17 08:48 Intake & Output 06/13/17 06/14/17 06/15/17 06:59 06:59 06:59 Intake Total 1399 1344 Output Total 726 2 Balance 673 1342 Weight 53.6 kg 53.4 kg General appearance: PRESENT: cooperative, thin Head exam: PRESENT: atraumatic, normocephalic Eye exam: PRESENT: EOMI, PERRLA Ear exam: PRESENT: normal external ear exam, TM's normal bilaterally Neck exam: PRESENT: full ROM. ABSENT: JVD, lymphadenopathy, tenderness Respiratory exam: PRESENT: clear to auscultation nadira Cardiovascular exam: PRESENT: RRR. ABSENT: diastolic murmur, systolic murmur Vascular exam: PRESENT: normal capillary refill GI/Abdominal exam: PRESENT: normal bowel sounds, soft. ABSENT: tenderness Extremities exam: PRESENT: full ROM. ABSENT: pedal edema Musculoskeletal exam: PRESENT: ambulatory Neurological exam: PRESENT: alert, awake, oriented to person, oriented to place , oriented to time, oriented to situation, CN II-XII grossly intact Psychiatric exam: PRESENT: appropriate affect, normal mood Skin exam: PRESENT: intact, normal color Results Laboratory Results: 06/14/17 06:57 06/13/17 06:00 06/14/17 06/14/17 01:55 06:57 WBC 10.6 H RBC 3.63 L Hgb 12.6 Hct 37.3 MCV 103 H MCH 34.6 H MCHC 33.7 RDW 15.0 H Plt Count 172 Stool Occult Blood NEGATIVE 06/10/17 06/10/17 06/11/17 05:45 11:39 07:02 Troponin I 20.900 18.700 8.930 Impressions: Chest X-Ray 06/13/17 00:00 IMPRESSION: IMPROVED AERATION. RESIDUAL DENSITY IN THE LEFT MIDLUNG. Plan Discharge Plan: Patient will be discharged under her daughter care who will take her to [facility] Time Spent: Less than 30 Minutes
[2017-06-14] MEDS: LISINOPRIL 10 MG TABLET PO SCH (13:51)
[2017-06-14 16:09] VITALS: BP 131/53
[2017-06-14 16:26] LABS: APPEARANCE,URINE SLIGHTLY-CLOUDY; BILIRUBIN,URINE NEGATIVE (NEGATIVE); COLOR,URINE YELLOW; GLUCOSE, URINE NEGATIVE (NEGATIVE); KETONES,URINE NEGATIVE (NEGATIVE); LEUKOCYTE ESTERASE,URINE LARGE (NEGATIVE); NITRITE,URINE NEGATIVE (NEGATIVE); PROTEIN,URINE NEGATIVE (NEGATIVE); UROBILINOGEN,URINE NEGATIVE mg/dL (<2.0)
--- NOTE | 2017-06-14 20:14 | PDOC PROGRESS REPORT ---
Subjective Progress Note for:: 06/14/17 Subjective:: Patient resting comfortably in bed without any complaints. Patient has shown very significant improvement in general status. Patient currently on oxygen supplementation by nasal cannula. Respiratory status has improved. Patient is not noted to have any chest arm or neck discomfort. Patient not noted to have or describing any PND, orthopnea.. Patient not noted to have fever chills. Patient does not seem to be in any other significant discomfort. Telemetry shows sinus rhythm with left bundle branch block pattern and frequent APCs. System review: No significant changes Medications reviewed. Reason For Visit: HEART FAILURE Physical Exam Vital Signs: Temp Pulse Resp BP Pulse Ox 98.7 F 89 18 131/53 H 93 06/14/17 14:48 06/14/17 14:48 06/14/17 14:48 06/14/17 14:48 06/14/17 14:48 Intake & Output 06/13/17 06/14/17 06/15/17 06:59 06:59 06:59 Intake Total 1399 1344 118 Output Total 726 2 Balance 673 1342 118 Weight 53.6 kg 53.4 kg Exam: GENERAL: well-nourished and in no acute distress. Alert and oriented x2. Orientation somewhat difficult to check because of patient being hard of hearing. HEAD: Atraumatic, normocephalic. EYES: Pupils equal round and reactive to light, extraocular movements intact, sclera anicteric, conjunctiva are normal. ENT: TMs normal, nares patent, oropharynx clear without exudates. Moist mucous membranes. No oral ulcerations or bleeding gums noted NECK: supple without lymphadenopathy. Trachea is central. No cervical or axillary lymphadenopathy noted. Carotids are 2+, JVD WNL LUNGS: Respiration seems nonlabored, no significant accessory muscle action noted. Few bilateral mild wheezes rales or rhonchi noted. No significant dullness noted on percussion. CHEST: Palpation of the chest wall shows no significant chest wall tenderness. No other significant abnormalities noted. HEART: Wall ZANJERO, No PSH, 1/6 TIERA aortic area, 1/6 dillon systolic murmur mitral area, no rubs, no gallops. ABDOMEN: Soft, no significant tenderness appreciated, normoactive bowel sounds. No guarding, no rebound. No rigidity noted . No masses appreciated. EXTREMITIES: Pedal pulses are 1-2+, no calf tenderness noted. No clubbing or cyanosis.trace to 1+ pedal edema noted NEUROLOGICAL: Focused neurological exam showed no significant neurologic deficit. Normal speech, no focal weakness appreciated. PSYCH: Normal mood, normal affect. Judgment and insight within normal limits to the best of my determination. SKIN: No significant ecchymosis, rash, ulcerations or signs of pruritus noted. MUSCULOSKELETAL EXAM: No significant joint swelling noted. Results Laboratory Results: 06/14/17 06:57 06/13/17 06:00 06/14/17 06/14/17 06/14/17 01:55 06:57 15:50 WBC 10.6 H RBC 3.63 L Hgb 12.6 Hct 37.3 MCV 103 H MCH 34.6 H MCHC 33.7 RDW 15.0 H Plt Count 172 Urine Color YELLOW Urine Appearance SLIGHTLY-CLOUDY Urine pH 5.0 Ur Specific [place] 1.010 Urine Protein NEGATIVE Urine Glucose (UA) NEGATIVE Urine Ketones NEGATIVE Urine Blood NEGATIVE Urine Nitrite NEGATIVE Ur Leukocyte Esterase LARGE H Urine WBC (Auto) 96 Urine RBC (Auto) 7 Stool Occult Blood NEGATIVE 06/10/17 06/10/17 06/11/17 05:45 11:39 07:02 Troponin I 20.900 18.700 8.930 EKG Comments: Telemetry shows sinus rhythm with bundle branch block pattern. Impressions: Chest X-Ray 06/13/17 00:00 IMPRESSION: IMPROVED AERATION. RESIDUAL DENSITY IN THE LEFT MIDLUNG. Assessment & Plan - Diagnosis (1) Non-STEMI (non-ST elevated myocardial infarction) Is this a current diagnosis for this admission?: Yes (2) CHF (congestive heart failure) Is this a current diagnosis for this admission?: Yes (3) Dementia Qualifiers: Dementia type: unspecified type Dementia behavioral disturbance: without behavioral disturbance Qualified Code(s): F03.90 - Unspecified dementia without behavioral disturbance Is this a current diagnosis for this admission?: Yes (4) Acute respiratory failure with hypoxia Is this a current diagnosis for this admission?: Yes (5) Multifocal atrial tachycardia Is this a current diagnosis for this admission?: Yes - Notes Notes: Chest x-ray from yesterday shows resolution of CHF. Patient respiration is also very stable. Monitoring for last several days did not show recurrence of multifocal atrial tachycardia. Non-STEMI: Patient with left bundle branch block pattern. Patient has done well with medical management. Patient has been placed on an adequate antianginal regimen. Patient to be treated only with conservative management plans. CHF: 2D echocardiogram results reviewed. Currently continue with diuretics, NEIL inhibitors and beta-blockers. Acute respiratory failure: Family does not want intubation. Currently on nasal cannula oxygen supplementation. Currently maintaining oxygenation. Multifocal atrial tachycardia: Noted on EKG. seems improved on rhythm strips. Continue with beta-rg therapy. May consider amiodarone therapy if patient goes into atrial fibrillation with rapid ventricular response. - Time Time with patient: 15-25 minutes - CODE STATUS : was discussed, patient remains DO NOT RESUSCITATE. Surrogate decision-maker unchanged. Multiple medical problems were addressed. More than 50% of the time spent coordinating care, discussing management plans with involved caregivers. Management plans discussed with involved personnels. Medical decision making was of moderate to high complexity, patient's has multiple comorbidities. Medications reviewed and adjusted accordingly: Yes
== END 2017-06-14 16:09 | DRG 280 ==
LOC: ER 21:00 → EH 22:55 → 3S 06-10 03:15
PROVIDERS: ADMIT Pediatrics; ATTEND Pediatrics
PROC: 5A09457 Assistance with Respiratory Ventilation, 24-96 Consecutive Hours, Continuous Positive Airway Pressure (ICD-10-PCS; principal; 2017-06-09)
PROC: 3E0F73Z Introduction of Anti-inflammatory into Respiratory Tract, Via Natural or Artificial Opening (ICD-10-PCS; 2017-06-12)
DX: I21.4 Non-ST elevation (NSTEMI) myocardial infarction (principal); J96.01 Acute respiratory failure with hypoxia; I50.41 Acute combined systolic (congestive) and diastolic (congestive) heart failure; Z66 Do not resuscitate; F03.90 Unspecified dementia, unspecified severity, without behavioral disturbance, psychotic disturbance, mood disturbance, and anxiety; E87.6 Hypokalemia; E83.42 Hypomagnesemia; E78.00 Pure hypercholesterolemia, unspecified; I48.2 Chronic atrial fibrillation; B34.9 Viral infection, unspecified; M19.90 Unspecified osteoarthritis, unspecified site; I65.8 Occlusion and stenosis of other precerebral arteries; I11.0 Hypertensive heart disease with heart failure; F32.9 Major depressive disorder, single episode, unspecified; K21.9 Gastro-esophageal reflux disease without esophagitis; I44.7 Left bundle-branch block, unspecified; D69.6 Thrombocytopenia, unspecified; I25.2 Old myocardial infarction; Z79.899 Other long term (current) drug therapy; Z87.891 Personal history of nicotine dependence; Z91.048 Other nonmedicinal substance allergy status; Z88.6 Allergy status to analgesic agent; Z82.49 Family history of ischemic heart disease and other diseases of the circulatory system
CPT/HCPCS: 36415; 36600; 71045; 80048; 80053; 80061; 80076; 81001; 82272; 82550; 82553; 82803; 83036; 83735; 83880; 84484; 85025; 85027; 85610; 85730; 87086; 87088; 87186; 87493; 93005; 93010; 93306; 94640; 94660; 96365; 96375; 99291; G8978-GP; G8979-GP; J1160; J1652; J1940; J3475; J3480; J3490; J7620; S0164

== ENCOUNTER 2017-06-15 02:24 | Inpatient (IN) | payer MEDICARE, OTHER ==
--- NOTE | 2017-06-15 02:53 | ER Document Report ---
ED General - General Stated Complaint: COUGH Time Seen by Provider: 06/15/17 02:44 Notes: Patient is a 87-year-old female presents with planes of a cough. She is released yesterday from hospital at noon. During her stay she was diagnosed with a non-STEMI. Family wanted medical management. She was medically managed for this. At that time she also has CHF and A. fib. Tonight the patient developed some difficulty breathing. Pulse ox was 90% on room air. Paramedics were called. Paramedics gave her one albuterol treatment because she had scattered rhonchi. Rhonchi since cleared. Patient herself has no complaints and says she overall feels okay. She denies any pain. She denies any fevers. No other complaints at this time. TRAVEL OUTSIDE OF THE [place] IN LAST 30 DAYS: No - Related Data Allergies/Adverse Reactions: meperidine HCl [From Demerol] Allergy (Verified 04/25/11 22:44) red dye [Red Dye] Allergy (Verified 04/25/11 22:44) Past Medical History - Social History Smoking Status: Never Smoker Frequency of alcohol use: None Drug Abuse: None Family History: Hypertension - Past Medical History Cardiac Medical History: Reports: Hx Atrial Fibrillation, Hx Heart Attack, Hx Hypercholesterolemia, Hx Hypertension Pulmonary Medical History: Reports: Hx Bronchitis Renal/ Medical History: Denies: Hx Peritoneal Dialysis GI Medical History: Reports: Hx Gastroesophageal Reflux Disease Musculoskeltal Medical History: Reports Hx Arthritis Psychiatric Medical History: Reports: Hx Depression Past Surgical History: Reports: Hx Cardiac Catheterization, Hx Open Heart Surgery - Immunizations Hx Diphtheria, Pertussis, Tetanus Vaccination: Yes Review of Systems - Review of Systems Notes: My Normal Review Basic REVIEW OF SYSTEMS: CONSTITUTIONAL : Denies fever, chills, or sweats. Denies recent illness. EENT: Denies eye, ear, throat, or mouth pain or symptoms. Denies nasal or sinus congestion. CARDIOVASCULAR: Denies chest pain. RESPIRATORY: Some difficulty breathing earlier which since resolved. GASTROINTESTINAL: Denies abdominal pain. Denies nausea, vomiting, or diarrhea. Denies constipation. Last BM: MUSCULOSKELETAL: Denies neck or back pain or joint pain or swelling. SKIN: Denies rash or skin lesions. NEUROLOGICAL: Denies altered mental status or loss of consciousness. Denies headache. Denies weakness or paralysis or loss of use of either side. Denies problems with gait or speech. Denies sensory or motor loss. ALL OTHER SYSTEMS REVIEWED AND NEGATIVE. Physical Exam - Vital signs Vitals: Pulse Ox 94 06/15/17 02:34 - Notes Notes: General Appearance: Well nourished, alert, cooperative, no acute distress, no obvious discomfort. Well-appearing. Vitals: reviewed, See vital signs table. Head: no swelling or tenderness to the head Eyes: PERRL, EOMI, Conjuctiva clear Mouth: No decreasd moisture Throat: No tonsillar inflammation, No airway obstruction, No lymphadenopathy Lungs: No wheezing, No rales, No rhonci, No accessory muscle use, good air exchange bilaterally. Heart: Normal rate, Regular rythm, No murmur, no rub Abdomen: Normal BS, soft, No rigidity, No abdominal tenderness, No guarding, no rebound, no abdominal masses, no organomegaly Extremities: strength 5/5 in all extremities, good pulses in all extremities, no swelling or tenderness in the extremities, no edema. Skin: warm, dry, appropriate color, no rash Neuro: speech clear, oriented x 3, normal affect, responds appropriately to questions. Course - Re-evaluation Re-evalutation: 06/15/17 06:23 Patient's oxygenation is around 9092% when she is asleep. She is awake her oxygenation is around 9495%. Feel that she would benefit from 2 L of oxygen via nasal cannula when she is sleeping. Patient also had a fever today of just over 102 around midnight. I did speak with the patient's nurse at the assisted living facility, Robyn, who gave her Motrin and also give her breathing treatment. Her breathing continued to worsen therefore she did call the able to brought her here. Patient's lung oliva did clear with the breathing treatment and she does receive breathing treatments as needed at the assisted living facility as well. I did speak with the daughter on the phone and her concern is that the patient has continued have some altered mental status since leaving the hospital. She says that in the past this is usually attributable to UTI. I do see where the patient did have a urinary tract infection just yesterday according to urinalysis. Rossana's urinalysis shows 3+ bacteria but no leukocyte esterase. Being that the patient has symptoms similar to what she has had in the past with UTI and also had a fever today think it is appropriate to start her on antibiotic. We will give her a dose of Rocephin here. I then will place her on Levaquin which would treat for both bronchitis as well as urinary tract infection. I have sent her urine for culture. I spoke with Robyn , nurses assisted living facility, and asked her if she felt that they have the capabilities they are to apply supplemental oxygen as well as to give the patient her antibiotic and to take care of her in her current condition. She says that she feels very comfortable taking care of her in her current state and is a patient very well and says they will be able to apply nasal cannula oxygen at night so the patient does not have hypoxemia when sleeping. I did speak with the patient's daughter about this plan and she is agreeable to it as well. I informed both the daughter and the nurse to have her return to ER immediately if the patient has recurrent difficulty breathing, fevers, vomiting , or if she appears to be worsening in any. Dictation of this chart was performed using voice recognition software; therefore, there may be some unintended grammatical errors. - Vital Signs Vital signs: Temp Pulse Resp BP Pulse Ox 100/46 L 94 06/15/17 04:34 06/15/17 04:34 - Laboratory Result Diagrams: 06/15/17 04:31 06/15/17 04:31 Laboratory results interpreted by me: 06/15/17 06/15/17 04:31 04:31 WBC 11.0 H RBC 3.68 L MCV 103 H MCH 34.7 H RDW 14.6 H Monocytes % 13.8 H Absolute Monocytes 1.5 H Sodium 133.8 L BUN 29 H Est GFR ( Amer) 50 L Est GFR (Non-Af Amer) 41 L AST 58 H Total Protein 5.8 L Albumin 3.4 L - EKG Interpretation by Me Additional EKG results interpreted by me: 06/15/17 03:34 EKG is reviewed and interpreted by me. EKG shows sinus rhythm with rate of [address] segment changes in comparison to her previous EKG from June 12, 2017. ND interval is within normal range. QRS duration QTc intervals are slightly prolonged. Patient does have a left bundle branch block which again is unchanged comparison to her old EKG. Discharge - Discharge Clinical Impression: Bronchitis UTI (urinary tract infection) Qualifiers: Urinary tract infection type: site unspecified Hematuria presence: without hematuria Qualified Code(s): N39.0 - Urinary tract infection, site not specified Condition: Good Disposition: HOME, SELF-CARE Additional Instructions: Please wear 2 liters of oxygen at night. Please take the antibiotic as prescribed. Please send Mrs. Hale back to the ER if she has recurrent fevers, vomiting, difficulty breathing not responding to the inhaler, or if she appears to be worsening. Have her rechecked by her doctor on or Wednesday. Prescriptions: Levofloxacin [Levaquin 750 mg Tablet] 750 mg PO DAILY #7 tablet Oxygen 2 b .ROUTE ASDIR 30 Days
--- NOTE | 2017-06-15 03:30 | RADIOLOGY REPORT (SQ) ---
EXAM DESCRIPTION: CHEST SINGLE VIEW CLINICAL HISTORY: 87 years, Female, cough, dyspnea COMPARISON: 06/13/2017. NUMBER OF VIEWS: One LIMITATIONS: None. FINDINGS: Mild patchiness of the left midlung field with interval improvement. Emphysematous hyperinflation. Normal cardiac silhouette. Atherosclerosis. Mild osteoarthritis. Sternal wire. IMPRESSION: Mild patchiness in the left midlung field. Interval improvement.
[2017-06-15 04:41] LABS: ABSOLUTE BASOPHILS # (AUTO) 0.1 10^3/uL (0.0-0.2); ABSOLUTE EOSINOPHILS # (AUTO) 0.1 10^3/uL (0.0-0.6); ABSOLUTE LYMPHOCYTES (AUTO) 3.1 10^3/uL (0.5-4.7); ABSOLUTE MONOCYTES (AUTO) 1.5 10^3/uL (0.1-1.4); ABSOLUTE NEUT (AUTO) 6.2 10^3/uL (1.7-8.2); BASOPHILS % (AUTO) 0.7 % (0-2); EOSINOPHILS % (AUTO) 0.8 % (0-6); HEMATOCRIT 37.9 % (36.0-47.0); HEMOGLOBIN 12.8 g/dL (12.0-15.5); LYMPHOCYTES % (AUTO) 28.6 % (13-45); MEAN CORPUSCULAR HEMOGLOBIN 34.7 pg (27.0-33.4); MEAN CORPUSCULAR HGB CONC 33.7 g/dL (32.0-36.0); MEAN CORPUSCULAR VOLUME 103 fl (80-97); MONOCYTES % (AUTO) 13.8 % (3-13); PLATELET COUNT 191 10^3/uL (150-450); RED BLOOD COUNT 3.68 10^6/uL (3.72-5.28); RED CELL DISTRIBUTION WIDTH 14.6 % (11.5-14.0); SEGMENTED NEUTROPHILS % (AUTO) 56.1 % (42-78); TOTAL CELLS COUNTED % (AUTO) 100 %
[2017-06-15 04:59] LABS: ALBUMIN 3.4 g/dL (3.5-5.0); ANION GAP 11 (5-19); BLOOD UREA NITROGEN 29 mg/dL (7-20); CALCIUM 9.3 mg/dL (8.4-10.2); CARBON DIOXIDE 23 mmol/L (22-30); CHLORIDE 100 mmol/L (98-107); GLUCOSE 101 mg/dL (75-110); SODIUM 133.8 mmol/L (137-145); TOTAL PROTEIN 5.8 g/dL (6.3-8.2)
[2017-06-15 05:00] LABS: ALANINE AMINOTRANSFERASE 52 U/L (9-52); ALKALINE PHOSPHATASE 104 U/L (38-126); ASPARTATE AMINO TRANSFERASE 58 U/L (14-36); BILIRUBIN,DIRECT 0.3 mg/dL (0.0-0.4); BILIRUBIN,TOTAL 1.2 mg/dL (0.2-1.3)
[2017-06-15 05:27] LABS: APPEARANCE,URINE SLIGHTLY-CLOUDY; BILIRUBIN,URINE NEGATIVE (NEGATIVE); COLOR,URINE YELLOW; GLUCOSE, URINE NEGATIVE (NEGATIVE); KETONES,URINE NEGATIVE (NEGATIVE); LEUKOCYTE ESTERASE,URINE NEGATIVE (NEGATIVE); NITRITE,URINE NEGATIVE (NEGATIVE); PROTEIN,URINE NEGATIVE (NEGATIVE); UROBILINOGEN,URINE NEGATIVE mg/dL (<2.0)
[2017-06-15 05:32] LABS: VENOUS BLOOD BASE EXCESS -2.7 mmol/L; VENOUS BLOOD HCO3 21.5 mmol/L (20-32); VENOUS BLOOD PCO2 35.8 mmHg (35-63); VENOUS BLOOD PH 7.4 (7.30-7.42)
[2017-06-15] MEDS ORDERED: CEFTRIAXONE INJ 1000 MG VIAL IV ONE (06:01)
[2017-06-15] MEDS ORDERED: NORMAL SALINE 500 ML IV ONE (07:16)
--- NOTE | 2017-06-15 09:29 | EKG REPORT ---
SEVERITY:- ABNORMAL ECG - SINUS RHYTHM ATRIAL PREMATURE COMPLEX LEFT BUNDLE BRANCH BLOCK : Confirmed by: Lashae Gómez 15-Jun-2017 09:27:19
[2017-06-15] MEDS ORDERED: ACETAMINOPHEN 325 MG TABLET PO PRN (11:18)
[2017-06-15] MEDS ORDERED: NORMAL SALINE 1000 ML 1,000 ML IV PRN (11:18)
[2017-06-15] MEDS ORDERED: (PENDING PHARMACY ID) (Cholestyramine (With Sugar) [Cholestyramine Packet] 4 GM) PO PRN (11:25)
[2017-06-15] MEDS ORDERED: (PENDING PHARMACY ID) (Loratadine [Claritin] 10 MG) PO SCH (11:30)
[2017-06-15] MEDS ORDERED: (PENDING PHARMACY ID) (Saccharomyces Boulardii [Florastor] 250 MG) PO SCH (11:30)
--- NOTE | 2017-06-15 12:31 | RADIOLOGY REPORT (SQ) ---
EXAM DESCRIPTION: CT CHEST WITHOUT COMPLETED DATE/TIME: 06/15/2017 12:00 pm REASON FOR STUDY: sob, cough, rule out pna COMPARISON: Recent chest x-rays. TECHNIQUE: CT scan performed of the chest without intravenous contrast. Images reviewed with lung, soft tissue and bone windows. Reconstructed coronal and sagittal MPR images reviewed. All images st ored on PACS. All CT scanners at this facility use dose modulation, iterative reconstruction, and/or weight based d osing when appropriate to reduce radiation dose to as low as reasonably achievable (ALARA). [facility]: Dose Right [facility]: CareDose [facility]: Dose Right [facility]: Teradose 4D [facility]: [facility] RADIATION DOSE: CT Rad equipment meets quality standard of care and radiation dose reduction techniq ues were employed. CTDIvol: 4.8 mGy. DLP: 180 mGy-cm. mGy. LIMITATIONS: No technical limitations. FINDINGS: LUNGS AND PLEURA: Minimal hazy infiltrate left upper lobe consistent with a resolving infi ltrate as noted on the previous studies. Focal pleural thickening anteriorly right base. Probably b enign by CT surveillance with followup non contrasted CT in 3 to 6 months may be a consideration. No pleural effusions. No pulmonary edema. HILAR AND MEDIASTINAL STRUCTURES: No identified masses or abnormal nodes. No obvious aneurysm. HEART AND VASCULAR STRUCTURES: No aneurysm. No pericardial effusion. UPPER ABDOMEN: No significant findings. Limited exam. THYROID AND OTHER SOFT TISSUES: No masses. No adenopathy. BONES: No significant finding. HARDWARE: Old collapsed breast implants. The OTHER: Slightly dilated fluid filled esophagus. Possible reflux. No obstructing lesion identified d istally. IMPRESSION: Minimal hazy probably residual infiltrate left upper lung zone. No masses. No pleural effusions. Focal pleural thickening anterior the right base that is probably benign however CT surve illance with followup non contrasted CT in 3 to 6 months may be a consideration. TECHNICAL DOCUMENTATION: JOB ID: [id number] Quality ID # [id number]: Final reports with documentation of one or more dose reduction techniques (e.g., Au tomated exposure control, adjustment of the mA and/or kV according to patient size, use of iterative reconstruction technique) 2010 [employer]- All Rights Reserved
[2017-06-15 12:59] LABS: INTERNATIONAL RATION (INR) 1.01
[2017-06-15 13:00] LABS: PARTIAL THROMBOPLASTIN TIME 46.2 SEC (23.5-35.8)
[2017-06-15 13:02] LABS: D-DIMER 0.88 ug/mL (0.00-0.50)
[2017-06-15] MEDS ORDERED: CHOLESTYRAMINE/ASPARTAME 4 GM PACKET PO PRN (13:39)
[2017-06-15] MEDS ORDERED: ALLOPURINOL 100 MG TABLET PO ONE (14:00)
[2017-06-15] MEDS ORDERED: ASPIRIN 81 MG TABLET, ENT COATED PO ONE (14:00)
[2017-06-15] MEDS ORDERED: MAGNESIUM OXIDE 400 MG TABLET PO ONE (14:00)
[2017-06-15] MEDS ORDERED: MULTIVITAMIN TABLET PO ONE (14:00)
[2017-06-15] MEDS ORDERED: METOPROLOL SUCCINATE 50 MG TAB.SR.24H PO ONE (14:00)
[2017-06-15] MEDS: IPRATROPIUM/ALBUTEROL 0.5-2.5 MG/3 ML AMPUL NEB SCH ×2 (14:07→22:07)
[2017-06-15] MEDS ORDERED: NITROGLYCERIN 2.5 MG (0.1 MG/HR) PATCH.TD24 TD ONE (14:30)
[2017-06-15] MEDS: PIPERACILLIN SODIUM/TAZOBACTAM 3.375 GM in NORMAL SALINE 100 ML IV SCH ×2 (15:21→22:06)
--- NOTE | 2017-06-15 17:30 | PDOC H&P ---
History of Present Illness Admission Date/PCP: 06/15/17 08:18 History of Present Illness: The patient is an 87-year-old female who was just discharged from our facility. She resides at [facility]. She has a history of atrial fibrillation and atrial flutter, dementia, Raynaud's disease and arthritis. She is a DNR. The patient recently suffered an NSTEMI. She was found to have systolic and diastolic congestive heart failure as well. Her medications were adjusted and she was sent back to her facility. However on the day of discharge she was starting to have some increased confusion. She also developed some shortness of breath and difficulty breathing and she was brought back to the hospital for further evaluation. In the emergency room she was found to have evidence of a urinary tract infection. She also was somewhat encephalopathic. Initially it was thought that she may have some volume overload. There were also some concerns for pneumonia. She was referred to the hospitalist for admission. Past Medical History Cardiac Medical History: Reports: Atrial Fibrillation, Myocardial Infarction, Hyperlipidema, Hypertension Pulmonary Medical History: Reports: Bronchitis GI Medical History: Reports: Gastroesophageal Reflux Disease Musculoskeltal Medical History: Reports: Arthritis Psychiatric Medical History: Reports: Depression Past Surgical History Past Surgical History: Reports: Cardiac Catheterization Social History Information Source: Patient Lives with: [facility] Smoking Status: Never Smoker Frequency of Alcohol Use: None Hx Recreational Drug Use: No Hx Prescription Drug Abuse: No - Advance Directive Surrogate healthcare decision maker:: Shelley Davidson (daughter) Family History Family History: Hypertension Parental Family History Reviewed: Yes Children Family History Reviewed: Yes Sibling(s) Family History Reviewed.: Yes Medication/Allergy Home Medications: Allopurinol [Zyloprim 100 mg Tablet] 100 mg PO DAILY 06/15/17 Atorvastatin Calcium [Lipitor 80 mg Tablet] 80 mg PO QHS 06/15/17 Cholestyramine (with Sugar) [Cholestyramine Packet] 4 gm PO Q6HP PRN 06/15/17 Clobetasol Propionate [Temovate 0.05% Cream 15 gm] 1 applic TOP BID 06/15/17 Diltiazem HCl [Diltiazem 24Hr ER] 120 mg PO DAILY 06/15/17 Donepezil HCl [Aricept] 10 mg PO QHS 06/15/17 Doxycycline Monohydrate [Monodox] 100 mg PO BID 06/15/17 Furosemide [Lasix 20 mg Tablet] 20 mg PO DAILY 06/15/17 Guaifenesin [Cough Syrup] 10 ml PO Q4HP PRN 06/15/17 Hydrocortisone [Texacort] 1 applic TOP TID 06/15/17 Ibuprofen [Motrin 800 mg Tablet] 800 mg PO Q8HP PRN 06/15/17 Ipratropium/Albuterol Sulfate [Iprat-Albut 0.5-3(2.5) mg/3 ml] 3 ml NEB Q8HP PRN 06/15/17 Lisinopril [Prinivil 10 mg Tablet] 10 mg PO DAILY 06/15/17 Loratadine [Claritin 10 mg Tablet] 10 mg PO DAILY 06/15/17 Magnesium Oxide [Mag-Ox 400 mg Tablet] 400 mg PO DAILY 06/15/17 Meclizine HCl [Antivert 25 mg Tablet] 25 mg PO Q8HP PRN 06/15/17 Metoprolol Succinate [Toprol Xl 50 mg Tab.sr] 50 mg PO DAILY 06/15/17 Multivitamin [Animal Shapes Vitamins] 1 tab PO DAILY 06/15/17 Nitroglycerin [Nitro-Dur 2.5 mg (0.1 mg/Hr) Transdermal Ptch] 1 patch TOP DAILY 06/15/17 Pantoprazole Sodium [Protonix] 40 mg PO BID 06/15/17 Rivaroxaban [Xarelto] 15 mg PO DAILY 06/15/17 Saccharomyces Boulardii [Florastor] 250 mg PO BID 06/15/17 Sertraline HCl [Zoloft] 100 mg PO QHS 06/15/17 Valacyclovir HCl [Valtrex] 2,000 mg PO DAILYP PRN 06/15/17 Allergies/Adverse Reactions: meperidine HCl [From Demerol] Allergy (Verified 04/25/11 22:44) red dye [Red Dye] Allergy (Verified 04/25/11 22:44) Review of Systems ROS unobtainable: Due to mental status Physical Exam Vital Signs: Temp Pulse Resp BP Pulse Ox 97.8 F 67 33 H 111/49 L 100 06/15/17 11:46 06/15/17 14:07 06/15/17 16:01 06/15/17 16:01 06/15/17 16:01 Intake & Output 0206/15/17 06/16/17 06:59 06:59 06:59 Weight 53.07 kg General appearance: PRESENT: no acute distress, thin, other - She is receiving oxygen via nasal cannula Head exam: PRESENT: atraumatic, normocephalic Ear exam: PRESENT: normal external ear exam Mouth exam: PRESENT: dry mucosa, tongue midline Neck exam: ABSENT: carotid bruit, JVD, lymphadenopathy, thyromegaly Respiratory exam: PRESENT: other - She has some scattered coarse breath sounds anteriorly Cardiovascular exam: PRESENT: RRR. ABSENT: diastolic murmur, rubs, systolic murmur Pulses: PRESENT: normal dorsalis pedis pul GI/Abdominal exam: PRESENT: normal bowel sounds, soft. ABSENT: distended, guarding, mass, organolmegaly, rebound, tenderness Rectal exam: PRESENT: deferred Extremities exam: PRESENT: full ROM. ABSENT: calf tenderness, clubbing, pedal edema Neurological exam: PRESENT: alert, awake, oriented to person, oriented to place. ABSENT: oriented to time Psychiatric exam: PRESENT: appropriate affect, normal mood. ABSENT: homicidal ideation, suicidal ideation Skin exam: PRESENT: dry, intact, warm. ABSENT: cyanosis, rash Results Impressions: Chest CT 06/15/17 00:00 IMPRESSION: Minimal hazy probably residual infiltrate left upper lung zone. No masses. No pleural effusions. Focal pleural thickening anterior the right base that is probably benign however CT surveillance with followup non contrasted CT in 3 to 6 months may be a consideration. Chest X-Ray 06/15/17 02:50 IMPRESSION: Mild patchiness in the left midlung field. Interval improvement. Assessment & Plan - Diagnosis (1) Encephalopathy Is this a current diagnosis for this admission?: Yes Plan: The patient is not at her cognitive baseline I believe. The daughter is not present. I believe this is due to a urinary tract infection and possible deep hydration. (2) UTI (urinary tract infection) Qualifiers: Urinary tract infection type: site unspecified Hematuria presence: without hematuria Qualified Code(s): N39.0 - Urinary tract infection, site not specified Is this a current diagnosis for this admission?: Yes Plan: Urine culture is pending. She was given IV Rocephin in the emergency room. I am going to start her on IV Unasyn which will cover her urine as well as respiratory issues. (3) Bronchitis Is this a current diagnosis for this admission?: Yes Plan: CT scan revealed a possible improving pneumonia. At this point I am going to start her on IV Unasyn. She possibly could have some issues with aspiration. We will get speech therapy to evaluate her. This should cover her urinary tract infection as well (4) Acute kidney injury Is this a current diagnosis for this admission?: Yes Plan: She has a mild acute kidney injury likely secondary to dehydration. Her creatinine at the time of discharge was 0.85. I am going to give her some gentle hydration today. She will have a chemistry panel drawn in the morning. We will will have to watch her closely for signs of volume overload. (5) Systolic and diastolic CHF, chronic Is this a current diagnosis for this admission?: Yes Plan: Currently the patient appears to be quite dry. She will be gently hydrated. We will have to watch her closely for signs of volume overload. (6) Atrial fibrillation Qualifiers: Atrial fibrillation type: paroxysmal Qualified Code(s): I48.0 - Paroxysmal atrial fibrillation Is this a current diagnosis for this admission?: Yes Plan: Currently rate controlled (7) Hyperlipidemia Is this a current diagnosis for this admission?: Yes Plan: Continue statin medication (8) Hypertension Is this a current diagnosis for this admission?: Yes Plan: Currently her blood pressure has been on the low side. I am going to decrease the dose of her metoprolol and place hold parameters on it. (9) Hypotension Is this a current diagnosis for this admission?: Yes Plan: She was a little hypotensive at the time of admission that I believe is due to dehydration. I do not believe she has a septic picture. She will be gently hydrated today. I have written hold parameters on her metoprolol and decrease the dose to 25 mg. (10) Coronary artery disease Is this a current diagnosis for this admission?: Yes Plan: With a recent [place]. She will continue current medical management. The patient's family did not want any aggressive intervention. (11) Hyponatremia Is this a current diagnosis for this admission?: Yes Plan: Likely due to volume depletion. We will gently hydrate her today and check a chemistry panel in the morning (12) DNR (do not resuscitate) Is this a current diagnosis for this admission?: Yes - Time Time Spent: 50 to 70 Minutes - Inpatient Certification Based on my medical assessment, after consideration of the patient's comorbidities, presenting symptoms, or acuity I expect that the services needed warrant INPATIENT care.: Yes I certify that my determination is in accordance with my understanding of Medicare's requirements for reasonable and necessary INPATIENT services [42 CFR 412.3e].: Yes Medical Necessity: Need For IV Fluids, Need for IV Antibiotics - The patient was admitted to the hospital the next day after discharge. She has evidence of a urinary tract infection. She is encephalopathic. She is requiring IV fluids due to dehydration. She has an acute kidney injury. She needs to be monitored quite closely as she recently had an [place] and known heart failure. Timing of disposition will be determined by her clinical course however I fully expect her to spend >2 midnights in the hospital.
[2017-06-15] MEDS: ATORVASTATIN CALCIUM 80 MG TABLET PO SCH (17:48)
[2017-06-15] MEDS: LACTOBACILLUS ACIDOPHILUS 250 MG TAB PO SCH (17:48)
[2017-06-15] MEDS ORDERED: [UNRECOGNIZED DRUG - OTHER] TP SCH (18:00)
[2017-06-15] MEDS: DOCUSATE SODIUM 100 MG CAPSULE PO SCH (18:05)
[2017-06-15] MEDS: RIVAROXABAN 15 MG TABLET PO SCH (19:46)
[2017-06-15] MEDS ORDERED: (PENDING PHARMACY ID) (Donepezil Hcl [Aricept] 10 MG) PO SCH (22:00)
[2017-06-15] MEDS: SERTRALINE HCL 50 MG TABLET PO SCH (22:07)
[2017-06-15] MEDS: DONEPEZIL HCL 5 MG TABLET PO SCH (22:50)
[2017-06-16] MEDS: PIPERACILLIN SODIUM/TAZOBACTAM 3.375 GM in NORMAL SALINE 100 ML IV SCH ×4 (04:47→22:18)
[2017-06-16 06:04] LABS: ABSOLUTE BASOPHILS # (AUTO) 0.1 10^3/uL (0.0-0.2); ABSOLUTE EOSINOPHILS # (AUTO) 0.2 10^3/uL (0.0-0.6); ABSOLUTE LYMPHOCYTES (AUTO) 1.7 10^3/uL (0.5-4.7); ABSOLUTE MONOCYTES (AUTO) 1.2 10^3/uL (0.1-1.4); ABSOLUTE NEUT (AUTO) 6.8 10^3/uL (1.7-8.2); BASOPHILS % (AUTO) 0.7 % (0-2); EOSINOPHILS % (AUTO) 1.6 % (0-6); HEMATOCRIT 37.6 % (36.0-47.0); HEMOGLOBIN 12.7 g/dL (12.0-15.5); LYMPHOCYTES % (AUTO) 17.4 % (13-45); MEAN CORPUSCULAR HEMOGLOBIN 35.1 pg (27.0-33.4); MEAN CORPUSCULAR HGB CONC 33.8 g/dL (32.0-36.0); MEAN CORPUSCULAR VOLUME 104 fl (80-97); PLATELET COUNT 177 10^3/uL (150-450); RED BLOOD COUNT 3.62 10^6/uL (3.72-5.28); RED CELL DISTRIBUTION WIDTH 14.7 % (11.5-14.0); SEGMENTED NEUTROPHILS % (AUTO) 68.3 % (42-78); TOTAL CELLS COUNTED % (AUTO) 100 %
[2017-06-16 06:19] LABS: ALANINE AMINOTRANSFERASE 43 U/L (9-52); ALBUMIN 3.1 g/dL (3.5-5.0); ALKALINE PHOSPHATASE 101 U/L (38-126); ANION GAP 12 (5-19); ASPARTATE AMINO TRANSFERASE 47 U/L (14-36); BILIRUBIN,DIRECT 0.5 mg/dL (0.0-0.4); BLOOD UREA NITROGEN 28 mg/dL (7-20); CALCIUM 8.7 mg/dL (8.4-10.2); CARBON DIOXIDE 19 mmol/L (22-30); CHLORIDE 105 mmol/L (98-107); GLUCOSE 90 mg/dL (75-110); PHOSPHORUS 3.6 mg/dL (2.5-4.5); POTASSIUM 3.9 mmol/L (3.6-5.0); SODIUM 135.9 mmol/L (137-145); TOTAL PROTEIN 5.9 g/dL (6.3-8.2)
[2017-06-16] MEDS ORDERED: IPRATROPIUM BROMIDE 0.02% NEB 0.5 MG/2.5 ML AMPUL NEB ONE (06:47)
[2017-06-16] MEDS ORDERED: ALBUTEROL SULFATE 0.083% NEB 2.5 MG/3 ML AMPUL NEB ONE (06:47)
[2017-06-16] MEDS: IPRATROPIUM/ALBUTEROL 0.5-2.5 MG/3 ML AMPUL NEB SCH ×3 (08:48→20:50)
[2017-06-16] MEDS: DOCUSATE SODIUM 100 MG CAPSULE PO SCH ×2 (09:59→18:25)
[2017-06-16] MEDS ORDERED: CEFTRIAXONE 1 GM/D5W RTU 50 ML IV SCH (10:00)
[2017-06-16] MEDS ORDERED: ENOXAPARIN SODIUM INJ 30 MG/0.3 ML DISP.SYRIN SUBCUT SCH (10:00)
[2017-06-16] MEDS ORDERED: NORMAL SALINE 1000 ML 1,000 ML IV PRN (10:00)
[2017-06-16] MEDS ORDERED: METOPROLOL SUCCINATE 50 MG TAB.SR.24H PO SCH ×2 (10:00)
[2017-06-16] MEDS: MAGNESIUM OXIDE 400 MG TABLET PO SCH (10:00)
[2017-06-16] MEDS: ASPIRIN 81 MG TABLET, ENT COATED PO SCH (10:01)
[2017-06-16] MEDS: LACTOBACILLUS ACIDOPHILUS 250 MG TAB PO SCH ×2 (10:02→18:24)
[2017-06-16] MEDS: LORATADINE 10 MG TABLET PO SCH (10:02)
[2017-06-16] MEDS: MULTIVITAMIN TABLET PO SCH (10:04)
[2017-06-16] MEDS: LANSOPRAZOLE 30 MG TAB.RAP.DR PO SCH (10:11)
[2017-06-16] MEDS: ALLOPURINOL 100 MG TABLET PO SCH (10:12)
[2017-06-16] MEDS: NITROGLYCERIN 2.5 MG (0.1 MG/HR) PATCH.TD24 TD SCH (10:13)
[2017-06-16] MEDS: GUAIFENESIN 600 MG TABLET.SA PO SCH ×2 (10:32→22:20)
[2017-06-16] MEDS: DILTIAZEM HCL 120 MG CAP.SR.24H PO SCH (10:32)
--- NOTE | 2017-06-16 15:17 | PDOC PROGRESS REPORT ---
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 On day of her discharge after returning to her primary residence at [facility], the patient was found to some increased confusion and shortness of breath. She was returned to the emergency department where she was found to have a urinary tract infection and pneumonia. She was readmitted on 06/15/17. The patient is seen on morning rounds resting in bed comfortably on supplemental oxygen at 2 L/min. The patient is very pleasant and her primary concern today is needing assistance getting up her pineapple into smaller bite- size pieces. She did just see speech therapy who are recommending a mechanical soft diet with thin liquids. Otherwise, the patient denies complaints. She denies dyspnea, orthopnea, cough , chest pain, palpitations, abdominal pain, dysuria. Reason For Visit: UTI, BRONCHITIS, ENCEPHALOPATHY Physical Exam Vital Signs: Temp Pulse Resp BP Pulse Ox 97.6 F 84 18 146/109 H 98 06/16/17 10:25 06/16/17 13:58 06/16/17 13:58 06/16/17 10:25 06/16/17 10:25 Intake & Output 06/15/17 06/16/17 06/17/17 06:59 06:59 06:59 Weight 53.07 kg General appearance: PRESENT: no acute distress, well-developed, well-nourished Head exam: PRESENT: atraumatic, normocephalic Eye exam: PRESENT: conjunctiva pink, EOMI, PERRLA. ABSENT: scleral icterus Ear exam: PRESENT: normal external ear exam Mouth exam: PRESENT: moist, tongue midline Neck exam: ABSENT: carotid bruit, JVD, lymphadenopathy, thyromegaly Respiratory exam: PRESENT: clear to auscultation nadira, rhonchi, symmetrical, unlabored, other - Productive cough. ABSENT: rales, wheezes Cardiovascular exam: PRESENT: RRR, +S1, +S2. ABSENT: diastolic murmur, rubs, systolic murmur Pulses: PRESENT: normal dorsalis pedis pul Vascular exam: PRESENT: normal capillary refill GI/Abdominal exam: PRESENT: normal bowel sounds, soft. ABSENT: distended, guarding, mass, organolmegaly, rebound, tenderness Rectal exam: PRESENT: deferred Extremities exam: PRESENT: full ROM. ABSENT: calf tenderness, clubbing, pedal edema Neurological exam: PRESENT: alert, awake, oriented to person, oriented to place , CN II-XII grossly intact. ABSENT: oriented to time, oriented to situation, motor sensory deficit Psychiatric exam: PRESENT: appropriate affect, normal mood. ABSENT: homicidal ideation, suicidal ideation Skin exam: PRESENT: dry, intact, warm. ABSENT: cyanosis, rash Results Laboratory Results: 06/16/17 05:55 06/16/17 05:55 06/16/17 06/16/17 06/16/17 05:55 05:55 05:55 WBC 10.0 RBC 3.62 L Hgb 12.7 Hct 37.6 MCV 104 H MCH 35.1 H MCHC 33.8 RDW 14.7 H Plt Count 177 Seg Neutrophils % 68.3 Lymphocytes % 17.4 Monocytes % 12.0 Eosinophils % 1.6 Basophils % 0.7 Absolute Neutrophils 6.8 Absolute Lymphocytes 1.7 Absolute Monocytes 1.2 Absolute Eosinophils 0.2 Absolute Basophils 0.1 Sodium 135.9 L Potassium 3.9 Chloride 105 Carbon Dioxide 19 L Anion Gap 12 BUN 28 H Creatinine 0.98 Est GFR ( Amer) > 60 Est GFR (Non-Af Amer) 54 L Glucose 90 Calcium 8.7 Phosphorus 3.6 Magnesium 2.0 Total Bilirubin 1.0 AST 47 H ALT 43 Alkaline Phosphatase 101 Total Protein 5.9 L Albumin 3.1 L TSH 1.69 06/16/17 05:55 NT-Pro-B Natriuret Pep 1610 H Impressions: Chest CT 06/15/17 00:00 IMPRESSION: Minimal hazy probably residual infiltrate left upper lung zone. No masses. No pleural effusions. Focal pleural thickening anterior the right base that is probably benign however CT surveillance with followup non contrasted CT in 3 to 6 months may be a consideration. Chest X-Ray 06/15/17 02:50 IMPRESSION: Mild patchiness in the left midlung field. Interval improvement. Assessment & Plan - Diagnosis (1) UTI (urinary tract infection) Qualifiers: Urinary tract infection type: site unspecified Hematuria presence: without hematuria Qualified Code(s): N39.0 - Urinary tract infection, site not specified Is this a current diagnosis for this admission?: Yes Plan: The patient is admitted to the telemetry unit. Urine cultures: Gram-negative rods. The patient did receive IV Rocephin while in the emergency department. She has since been started on Unasyn for coverage of both urinary tract and pulmonary microbes. Will adjust antibiotics as urine culture results. (2) Encephalopathy Is this a current diagnosis for this admission?: Yes Plan: Increased confusion in the setting of baseline dementia. Family members are not present and so it is difficult to fully assess the patient's baseline mental status. This morning, the patient is pleasant and oriented to self, place, but not time or situation. I believe this to be near the patient's likely baseline. We will continue to monitor and provide for patient safety. (3) Acute kidney injury Is this a current diagnosis for this admission?: Yes Plan: Mild kidney injury: This is likely secondary to dehydration. Her creatinine at the time of discharge was 0.85. On admission her creatinine is noted to be 0.23 which subsequently improved following gentle IV fluid hydration. We will avoid nephrotoxic medications. We will monitor with daily chemistries. (4) Bronchitis Plan: CT scan of the chest revealed a possible improving pneumonia. Blood cultures: Pending Sputum culture: Has not been obtained at this time. She has been empirically started on Unasyn. Supplemental oxygen as needed to maintain oxygen saturations greater than 92% Scheduled duo nebs and next twice daily. Incentive spirometry to bedside; the patient will need guided use. (5) Coronary artery disease Is this a current diagnosis for this admission?: Yes Plan: With recent MS. She will continue medical management with daily aspirin, atorvastatin, metoprolol, and diltiazem. The patient's family have indicated that they would not want aggressive interventions. (6) Hyperlipidemia Is this a current diagnosis for this admission?: Yes Plan: Continue atorvastatin 80 mg nightly. (7) Hypertension Is this a current diagnosis for this admission?: Yes Plan: Continue the patient's home medications: Metoprolol and diltiazem (8) Hyponatremia Is this a current diagnosis for this admission?: Yes Plan: Secondary to dehydration in the setting of sepsis. Has improved with IV fluids. (9) Systolic and diastolic CHF, chronic Is this a current diagnosis for this admission?: Yes Plan: The patient continues to appear volume depleted. She did receive 2 L of IV fluids overnight. Will initiate gentle IV maintenance fluids. She is placed on a cardiac diet. We will monitor closely for fluid volume overload. Daily weights. (10) Atrial fibrillation Qualifiers: Atrial fibrillation type: paroxysmal Qualified Code(s): I48.0 - Paroxysmal atrial fibrillation Is this a current diagnosis for this admission?: Yes Plan: Rate controlled with metoprolol and diltiazem. On daily aspirin and Xarelto therapy. (11) Dementia Qualifiers: Dementia type: unspecified type Dementia behavioral disturbance: without behavioral disturbance Qualified Code(s): F03.90 - Unspecified dementia without behavioral disturbance Plan: We will provide supportive care. (12) Elevated troponin Is this a current diagnosis for this admission?: Yes Plan: Secondary to recent non-STEMI. The patient's family have indicated that they do not wish for the patient to have aggressive interventions. Plan as above. (13) DNR (do not resuscitate) Is this a current diagnosis for this admission?: Yes - Time Time Spent with patient: 25-34 minutes Medications reviewed and adjusted accordingly: Yes - Inpatient Certification Based on my medical assessment, after consideration of the patient's comorbidities, presenting symptoms, or acuity I expect that the services needed warrant INPATIENT care.: Yes I certify that my determination is in accordance with my understanding of Medicare's requirements for reasonable and necessary INPATIENT services [42 CFR 412.3e].: Yes Medical Necessity: Need Close Monitoring Due to Risk of Patient Decompensation, Need for IV Antibiotics
[2017-06-16] MEDS ORDERED: ACETAMINOPHEN 325 MG TABLET PO PRN (15:38)
[2017-06-16] MEDS: RIVAROXABAN 15 MG TABLET PO SCH (18:24)
[2017-06-16] MEDS: ATORVASTATIN CALCIUM 80 MG TABLET PO SCH (18:25)
[2017-06-16] MEDS: TEMAZEPAM 7.5 MG CAPSULE PO PRN (22:18)
[2017-06-16] MEDS: DONEPEZIL HCL 5 MG TABLET PO SCH (22:18)
[2017-06-16] MEDS: SERTRALINE HCL 50 MG TABLET PO SCH (22:19)
[2017-06-17] MEDS: PIPERACILLIN SODIUM/TAZOBACTAM 3.375 GM in NORMAL SALINE 100 ML IV SCH ×2 (03:18→10:24)
[2017-06-17 05:28] LABS: HEMATOCRIT 31.6 % (36.0-47.0); MEAN CORPUSCULAR HEMOGLOBIN 35.6 pg (27.0-33.4); MEAN CORPUSCULAR HGB CONC 34.7 g/dL (32.0-36.0); MEAN CORPUSCULAR VOLUME 103 fl (80-97); PLATELET COUNT 139 10^3/uL (150-450); RED BLOOD COUNT 3.09 10^6/uL (3.72-5.28); RED CELL DISTRIBUTION WIDTH 14.4 % (11.5-14.0); WHITE BLOOD COUNT 8.2 10^3/uL (4.0-10.5)
[2017-06-17 05:42] LABS: ANION GAP 10 (5-19); BLOOD UREA NITROGEN 13 mg/dL (7-20); CALCIUM 8.1 mg/dL (8.4-10.2); CARBON DIOXIDE 16 mmol/L (22-30); CHLORIDE 106 mmol/L (98-107); GLUCOSE 80 mg/dL (75-110); POTASSIUM 3.6 mmol/L (3.6-5.0); SODIUM 132.2 mmol/L (137-145)
[2017-06-17] MEDS: LANSOPRAZOLE 30 MG TAB.RAP.DR PO SCH (05:46)
[2017-06-17] MEDS: IPRATROPIUM/ALBUTEROL 0.5-2.5 MG/3 ML AMPUL NEB SCH ×3 (08:34→20:29)
--- NOTE | 2017-06-17 10:34 | Physician Advisory Note ---
Physician Advisor ProgressNote .: Pursuant to the plan for Maria Victoria Browning, I have reviewed the medical record for this patient. Physician Advisor Statement: Nice documentation of chronic syst/diast CHF, type Afib, cause of CY. Please consider documenting, if you agree: 1. "Acute metabolic encephalopathy on top of dementia, likely due to ____, & evidenced by , which is not usual for her" (Thinking "disorganized", w/total GCS 13 initially for ED nurse - was 15 on eval 24hrs before, ...) 2. "Acute bronchitis" - or "chronic bronchitis"? Thanks! CK
[2017-06-17] MEDS: DOCUSATE SODIUM 100 MG CAPSULE PO SCH ×2 (10:40→17:29)
[2017-06-17] MEDS: METOPROLOL SUCCINATE 25 MG TAB.SR.24H PO SCH (10:40)
[2017-06-17] MEDS: DILTIAZEM HCL 120 MG CAP.SR.24H PO SCH (10:49)
[2017-06-17] MEDS: ASPIRIN 81 MG TABLET, ENT COATED PO SCH (10:50)
[2017-06-17] MEDS: LORATADINE 10 MG TABLET PO SCH (10:51)
[2017-06-17] MEDS: NITROGLYCERIN 2.5 MG (0.1 MG/HR) PATCH.TD24 TD SCH (10:52)
[2017-06-17] MEDS: GUAIFENESIN 600 MG TABLET.SA PO SCH ×2 (11:04→21:38)
[2017-06-17] MEDS: MULTIVITAMIN TABLET PO SCH (11:04)
[2017-06-17] MEDS: ALLOPURINOL 100 MG TABLET PO SCH (11:04)
[2017-06-17] MEDS: MAGNESIUM OXIDE 400 MG TABLET PO SCH (11:04)
[2017-06-17] MEDS: LACTOBACILLUS ACIDOPHILUS 250 MG TAB PO SCH ×2 (11:04→17:33)
[2017-06-17] MEDS ORDERED: NORMAL SALINE 1000 ML 1,000 ML IV PRN (16:16)
--- NOTE | 2017-06-17 16:16 | PDOC PROGRESS REPORT ---
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 On day of her discharge after returning to her primary residence at [facility], the patient was found to some increased confusion and shortness of breath. She was returned to the emergency department where she was found to have a urinary tract infection and pneumonia. She was readmitted on 06/15/17. The patient is seen on morning rounds resting in bed comfortably on room air. She tells me that she is feeling well and has no questions or concerns at this time. I did meet with two of her daughters this afternoon, they were very appreciative of the care that she has received since getting to her room. They plan to meet with Crista Rowland NP, Palliative care, tomorrow. All questions and concerns were addressed. Reason For Visit: UTI, BRONCHITIS, ENCEPHALOPATHY Physical Exam Vital Signs: Temp Pulse Resp BP Pulse Ox 99.1 F 62 14 137/51 H 97 06/17/17 11:31 06/17/17 14:13 06/17/17 14:13 06/17/17 11:31 06/17/17 14:13 Intake & Output 06/16/17 06/17/17 06/18/17 06:59 06:59 06:59 Intake Total 1665 Balance 1665 Weight 53.2 kg 53.2 kg General appearance: PRESENT: no acute distress, well-developed, well-nourished Head exam: PRESENT: atraumatic, normocephalic Eye exam: PRESENT: conjunctiva pink, EOMI, PERRLA. ABSENT: scleral icterus Ear exam: PRESENT: normal external ear exam Mouth exam: PRESENT: moist, tongue midline Neck exam: ABSENT: carotid bruit, JVD, lymphadenopathy, thyromegaly Respiratory exam: PRESENT: clear to auscultation nadira, symmetrical, unlabored. ABSENT: rales, rhonchi, wheezes Cardiovascular exam: PRESENT: RRR, +S1, +S2. ABSENT: diastolic murmur, rubs, systolic murmur Pulses: PRESENT: normal dorsalis pedis pul Vascular exam: PRESENT: normal capillary refill GI/Abdominal exam: PRESENT: normal bowel sounds, soft. ABSENT: distended, guarding, mass, organolmegaly, rebound, tenderness Rectal exam: PRESENT: deferred Extremities exam: PRESENT: full ROM. ABSENT: calf tenderness, clubbing, pedal edema Neurological exam: PRESENT: alert, awake, oriented to person, oriented to place , CN II-XII grossly intact. ABSENT: oriented to time, oriented to situation, motor sensory deficit Psychiatric exam: PRESENT: appropriate affect, normal mood. ABSENT: homicidal ideation, suicidal ideation Skin exam: PRESENT: dry, intact, warm. ABSENT: cyanosis, rash Results Laboratory Results: 06/17/17 04:50 06/17/17 04:50 06/17/17 06/17/17 04:50 04:50 WBC 8.2 RBC 3.09 L Hgb 11.0 L Hct 31.6 L MCV 103 H MCH 35.6 H MCHC 34.7 RDW 14.4 H Plt Count 139 L Sodium 132.2 L Potassium 3.6 Chloride 106 Carbon Dioxide 16 L Anion Gap 10 BUN 13 Creatinine 0.72 Est GFR ( Amer) > 60 Est GFR (Non-Af Amer) > 60 Glucose 80 Calcium 8.1 L 06/15/17 16:12 Nasophary (Mrsa Only) MRSA Surveillance Culture - Final NO MRSA RECOVERED 06/16/17 05:55 NT-Pro-B Natriuret Pep 1610 H Impressions: Chest CT 06/15/17 00:00 IMPRESSION: Minimal hazy probably residual infiltrate left upper lung zone. No masses. No pleural effusions. Focal pleural thickening anterior the right base that is probably benign however CT surveillance with followup non contrasted CT in 3 to 6 months may be a consideration. Chest X-Ray 06/15/17 02:50 IMPRESSION: Mild patchiness in the left midlung field. Interval improvement. Assessment & Plan - Diagnosis (1) UTI (urinary tract infection) Qualifiers: Urinary tract infection type: site unspecified Hematuria presence: without hematuria Qualified Code(s): N39.0 - Urinary tract infection, site not specified Is this a current diagnosis for this admission?: Yes Plan: The patient is admitted to the telemetry unit. Urine cultures: Klebsiella pneumoniae; resistant to ampicillin and macrobid The patient did receive IV Rocephin while in the emergency department. She has since been started on Unasyn for coverage of both urinary tract and pulmonary microbes. Will transition to Augmentin to complete course of therapy. (2) Encephalopathy Is this a current diagnosis for this admission?: Yes Plan: Acute metabolic encephalopathy in the setting of dementia, likely due to UTI and evidenced by increased confusion from baseline. Today, the patient continues to be fatigued but is more alert and engaged in conversation. Per family, she is improving. (3) Acute kidney injury Is this a current diagnosis for this admission?: Yes Plan: Resolved. Mild kidney injury: This is likely secondary to dehydration. Her creatinine at the time of discharge was 0.85. On admission her creatinine is noted to be 1.23 which subsequently improved following gentle IV fluid hydration. We will avoid nephrotoxic medications. We will monitor with daily chemistries. (4) Bronchitis Plan: Improving; Acute exacerbation of chronic bronchitis. CT scan of the chest revealed a possible improving pneumonia. Blood cultures: No growth at 48 hours. MRSA screening is negative. Sputum culture: Has not been obtained at this time. She was empirically placed on Unasyn; will transition to Augmentin. Supplemental oxygen as needed to maintain oxygen saturations greater than 92% Scheduled duo nebs and next twice daily. Incentive spirometry to bedside; the patient will need guided use. (5) Coronary artery disease Is this a current diagnosis for this admission?: Yes Plan: With recent MO. She will continue medical management with daily aspirin, atorvastatin, metoprolol, and diltiazem. The patient's family have indicated that they would not want aggressive interventions. (6) Hyperlipidemia Is this a current diagnosis for this admission?: Yes Plan: Continue atorvastatin 80 mg nightly. (7) Hypertension Is this a current diagnosis for this admission?: Yes Plan: Continue the patient's home medications: Metoprolol and diltiazem (8) Hyponatremia Is this a current diagnosis for this admission?: Yes Plan: Secondary to dehydration in the setting of sepsis. Has improved with IV fluids. (9) Systolic and diastolic CHF, chronic Is this a current diagnosis for this admission?: Yes Plan: The patient continues to appear volume depleted. She did receive 2 L of IV fluids overnight. Will initiate gentle IV maintenance fluids. She is placed on a cardiac diet. We will monitor closely for fluid volume overload. Daily weights. (10) Atrial fibrillation Qualifiers: Atrial fibrillation type: paroxysmal Qualified Code(s): I48.0 - Paroxysmal atrial fibrillation Is this a current diagnosis for this admission?: Yes Plan: Rate controlled with metoprolol and diltiazem. On daily aspirin and Xarelto therapy. (11) Dementia Qualifiers: Dementia type: unspecified type Dementia behavioral disturbance: without behavioral disturbance Qualified Code(s): F03.90 - Unspecified dementia without behavioral disturbance Plan: We will provide supportive care. Family have requested to meet with Palliative Care. Appreciate Ms. Michael's assistance and recommendations. (12) Elevated troponin Is this a current diagnosis for this admission?: Yes Plan: Secondary to recent non-STEMI. The patient's family have indicated that they do not wish for the patient to have aggressive interventions. Plan as above. (13) DNR (do not resuscitate) Is this a current diagnosis for this admission?: Yes - Time Time Spent with patient: 35 or more minutes Anticipated discharge: SNF - Permanent resident of [place]. Within: within 48 hours
[2017-06-17] MEDS ORDERED: COLCHICINE 0.6 MG TABLET PO ONE ×3 (16:55→18:15)
[2017-06-17] MEDS: CLOBETASOL PROPIONATE 0.05% CREAM 15 GM TP SCH ×2 (17:12→17:36)
[2017-06-17] MEDS: RIVAROXABAN 15 MG TABLET PO SCH (17:32)
[2017-06-17] MEDS: ATORVASTATIN CALCIUM 80 MG TABLET PO SCH (17:33)
[2017-06-17] MEDS: SERTRALINE HCL 50 MG TABLET PO SCH (21:38)
[2017-06-17] MEDS: DONEPEZIL HCL 5 MG TABLET PO SCH (21:38)
[2017-06-17] MEDS: AMOXICILLIN TR/POT CLAVULANATE 500-125 MG TAB PO SCH (21:38)
--- NOTE | 2017-06-17 23:12 | Palliative Consultation Report ---
Consultation From:: BRANDON FRAGA Consult Reason: Palliative care - HPI HPI: Palliative Care Consult Visit 06/17/17 3:15 PM Appreciate consult request for this 87 year old patient from [facility], who is admitted this time for UTI and changes in mental status. She was discharged just a couple of days before from hospitalization for NSTEMI . I had consult conversation with Naomie Rojas NP this AM. I went to see patient at 9:15 Am, but she was sleeping soundly and no family at bedside. I returned at 3:15, patient awake and being taken to per nursing, after incontinent episode. No c/O pain. very weak. I did speak with her daughter and agreed to come back tomorrow to meet with all three daughters to discuss patients condition and options for care. She does not appear to be appropriate for hospice at present but could have palliaitve care visits to monitor until such time she is appropriate for hospice. Onset: Just prior to arrival Onset/Duration: Sudden Quality of Pain: No pain Associated Symptoms: Nonproductive cough, Productive cough, Shortness of breath , Weakness Past Medical History(Consults) - General Information Source: Relative, [facility] Records Home Medications: Allopurinol [Zyloprim 100 mg Tablet] 100 mg PO DAILY 06/15/17 Atorvastatin Calcium [Lipitor 80 mg Tablet] 80 mg PO QHS 06/15/17 Cholestyramine (with Sugar) [Cholestyramine Packet] 4 gm PO Q6HP PRN 06/15/17 Clobetasol Propionate [Temovate 0.05% Cream 15 gm] 1 applic TOP BID 06/15/17 Diltiazem HCl [Diltiazem 24Hr ER] 120 mg PO DAILY 06/15/17 Donepezil HCl [Aricept] 10 mg PO QHS 06/15/17 Doxycycline Monohydrate [Monodox] 100 mg PO BID 06/15/17 Furosemide [Lasix 20 mg Tablet] 20 mg PO DAILY 06/15/17 Guaifenesin [Cough Syrup] 10 ml PO Q4HP PRN 06/15/17 Hydrocortisone [Texacort] 1 applic TOP TID 06/15/17 Ibuprofen [Motrin 800 mg Tablet] 800 mg PO Q8HP PRN 06/15/17 Ipratropium/Albuterol Sulfate [Iprat-Albut 0.5-3(2.5) mg/3 ml] 3 ml NEB Q8HP PRN 06/15/17 Lisinopril [Prinivil 10 mg Tablet] 10 mg PO DAILY 06/15/17 Loratadine [Claritin 10 mg Tablet] 10 mg PO DAILY 06/15/17 Magnesium Oxide [Mag-Ox 400 mg Tablet] 400 mg PO DAILY 06/15/17 Meclizine HCl [Antivert 25 mg Tablet] 25 mg PO Q8HP PRN 06/15/17 Metoprolol Succinate [Toprol Xl 50 mg Tab.sr] 50 mg PO DAILY 06/15/17 Multivitamin [Animal Shapes Vitamins] 1 tab PO DAILY 06/15/17 Nitroglycerin [Nitro-Dur 2.5 mg (0.1 mg/Hr) Transdermal Ptch] 1 patch TOP DAILY 06/15/17 Pantoprazole Sodium [Protonix] 40 mg PO BID 06/15/17 Rivaroxaban [Xarelto] 15 mg PO DAILY 06/15/17 Saccharomyces Boulardii [Florastor] 250 mg PO BID 06/15/17 Sertraline HCl [Zoloft] 100 mg PO QHS 06/15/17 Valacyclovir HCl [Valtrex] 2,000 mg PO DAILYP PRN 06/15/17 Allergies/Adverse Reactions: meperidine HCl [From Demerol] Allergy (Verified 04/25/11 22:44) red dye [Red Dye] Allergy (Verified 04/25/11 22:44) - Social History Lives with: [facility] Family History: Reviewed & Not Pertinent, Hypertension Parental Family History Reviewed: No Children Family History Reviewed: No Sibling(s) Family History Reviewed.: No Smoking Status: Never Smoker Frequency of Alcohol Use: None Hx Recreational Drug Use: No Drugs: None Hx Prescription Drug Abuse: No - Past Medical History Cardiac Medical History: Reports: Hx Atrial Fibrillation, Hx Heart Attack, Hx Hypercholesterolemia, Hx Hypertension Pulmonary Medical History: Reports: Hx Bronchitis Renal/ Medical History: Denies: Hx Peritoneal Dialysis GI Medical History: Reports: Hx Gastroesophageal Reflux Disease Musculoskeltal Medical History: Reports Hx Arthritis Psychiatric Medical History: Reports: Hx Dementia, Hx Depression - Surgical History Past Surgical History: Reports: Hx Cardiac Catheterization, Hx Open Heart Surgery Review of systems ROS unobtainable: due to mental statu Ojective:Exam Vital Signs: Temp Pulse Resp BP Pulse Ox 101.2 F H 85 18 141/54 H 94 06/17/17 19:58 06/17/17 20:28 06/17/17 20:28 06/17/17 19:58 06/17/17 20:28 Intake & Output 06/16/17 06/17/17 06/18/17 06:59 06:59 06:59 Intake Total 1665 2142 Balance 1665 2142 Weight 53.2 kg 53.2 kg - General General Appearance: Sleeping/easily aroused In distress: None Note:: Sleeping peacefully at first visit. Being changed and taken to BR by nursing during second visit. No distress noted either visit. - Respiratory Respiratory Status: No respiratory distress - Cardiovascular Rhythm: Regular Pulses: Normal: Radial - Skin Skin Temperature: Warm Skin Moisture: Dry Skin Color: [place], Pale Objective-Diagnostic Laboratory: 06/17/17 04:50 06/17/17 04:50 06/17/17 06/17/17 04:50 04:50 WBC 8.2 RBC 3.09 L Hgb 11.0 L Hct 31.6 L MCV 103 H MCH 35.6 H MCHC 34.7 RDW 14.4 H Plt Count 139 L Sodium 132.2 L Potassium 3.6 Chloride 106 Carbon Dioxide 16 L Anion Gap 10 BUN 13 Creatinine 0.72 Est GFR ( Amer) > 60 Est GFR (Non-Af Amer) > 60 Glucose 80 Calcium 8.1 L 06/15/17 16:12 Nasophary (Mrsa Only) MRSA Surveillance Culture - Final NO MRSA RECOVERED 06/16/17 05:55 NT-Pro-B Natriuret Pep 1610 H Plan and Recommendation Plan and Recommendation: Spoke with daughter about follow up with cardiology etc after discharge. To return to [facility] for care, daughter says she has many questions about patients condition that she wants to ask hospitalist. Her sisters will be at hospital tomorrow and she would like family conference to discuss patietns care needs after discharge. I will meet with them at 3PM on 06/18. - Time Spent with Patient Time spent with patient: 30 to 40 Minutes - 40 min in time with consultaiton hospitalist, daughter and visit with patient.
[2017-06-18] MEDS: AMOXICILLIN TR/POT CLAVULANATE 500-125 MG TAB PO SCH ×3 (05:58→22:17)
[2017-06-18] MEDS: LANSOPRAZOLE 30 MG TAB.RAP.DR PO SCH (05:58)
[2017-06-18 07:50] LABS: HEMATOCRIT 33.5 % (36.0-47.0); HEMOGLOBIN 11.4 g/dL (12.0-15.5); MEAN CORPUSCULAR HEMOGLOBIN 35.2 pg (27.0-33.4); MEAN CORPUSCULAR HGB CONC 34.1 g/dL (32.0-36.0); MEAN CORPUSCULAR VOLUME 103 fl (80-97); PLATELET COUNT 143 10^3/uL (150-450); RED BLOOD COUNT 3.24 10^6/uL (3.72-5.28); RED CELL DISTRIBUTION WIDTH 14.3 % (11.5-14.0); WHITE BLOOD COUNT 7.5 10^3/uL (4.0-10.5)
[2017-06-18 08:12] LABS: ANION GAP 10 (5-19); BLOOD UREA NITROGEN 8 mg/dL (7-20); CALCIUM 8.5 mg/dL (8.4-10.2); CARBON DIOXIDE 15 mmol/L (22-30); CHLORIDE 112 mmol/L (98-107); GLUCOSE 88 mg/dL (75-110); POTASSIUM 3.7 mmol/L (3.6-5.0)
[2017-06-18] MEDS ORDERED: TRAMADOL HCL 50 MG TABLET PO PRN (09:09)
[2017-06-18] MEDS: IPRATROPIUM/ALBUTEROL 0.5-2.5 MG/3 ML AMPUL NEB SCH ×3 (09:20→20:08)
--- NOTE | 2017-06-18 10:49 | RADIOLOGY REPORT (SQ) ---
EXAM DESCRIPTION: CHEST SINGLE VIEW COMPLETED DATE/TIME: 06/18/2017 10:17 am REASON FOR STUDY: dyspnea, cough, recent pna COMPARISON: 06/15/2017 EXAM PARAMETERS: NUMBER OF VIEWS: One view. TECHNIQUE: Single frontal radiographic view of the chest acquired. RADIATION DOSE: NA LIMITATIONS: None. FINDINGS: LUNGS AND PLEURA: Improving abnormal density in the left mid lung consistent with improvin g pneumonia. Minimal right effusion. New abnormal density in the right mid lung along the minor fis sure which may be related to effusion. New air pneumonia cannot be excluded. No left effusion. MEDIASTINUM AND HILAR STRUCTURES: No masses. Contour normal. HEART AND VASCULAR STRUCTURES: Mild cardiomegaly. Vasculature within normal limits. BONES: No acute findings. HARDWARE: Status post midline sternotomy. OTHER: No other significant finding. IMPRESSION: 1. Improving pneumonia on the left. 2. New abnormal density along the minor fissure on the right which may be related to small effusion although new area of pneumonia must also be considered. 3. Mild cardiomegaly TECHNICAL DOCUMENTATION: JOB ID: [id number] [employer]- All Rights Reserved
[2017-06-18] MEDS: LOPERAMIDE HCL 2 MG CAPSULE PO PRN (10:52)
[2017-06-18] MEDS: ALLOPURINOL 100 MG TABLET PO SCH (10:52)
[2017-06-18] MEDS: METOPROLOL SUCCINATE 25 MG TAB.SR.24H PO SCH (10:53)
[2017-06-18] MEDS: LORATADINE 10 MG TABLET PO SCH (10:54)
[2017-06-18] MEDS: GUAIFENESIN 600 MG TABLET.SA PO SCH ×2 (10:54→22:17)
[2017-06-18] MEDS: LACTOBACILLUS ACIDOPHILUS 250 MG TAB PO SCH ×2 (10:55→19:09)
[2017-06-18] MEDS: MAGNESIUM OXIDE 400 MG TABLET PO SCH (10:55)
[2017-06-18] MEDS: DILTIAZEM HCL 120 MG CAP.SR.24H PO SCH (10:56)
[2017-06-18] MEDS: ASPIRIN 81 MG TABLET, ENT COATED PO SCH (10:56)
[2017-06-18] MEDS: MULTIVITAMIN TABLET PO SCH (10:57)
[2017-06-18] MEDS: CLOBETASOL PROPIONATE 0.05% CREAM 15 GM TP SCH ×2 (10:58→19:11)
[2017-06-18] MEDS: DOCUSATE SODIUM 100 MG CAPSULE PO SCH ×2 (11:03→19:12)
[2017-06-18] MEDS: NITROGLYCERIN 2.5 MG (0.1 MG/HR) PATCH.TD24 TD SCH (11:03)
--- NOTE | 2017-06-18 14:27 | PDOC PROGRESS REPORT ---
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 On day of her discharge after returning to her primary residence at [facility], the patient was found to some increased confusion and shortness of breath. She was returned to the emergency department where she was found to have a urinary tract infection and pneumonia. She was readmitted on 06/15/17. The patient is seen on morning rounds resting in bed comfortably on room air. She does confirm a slightly productive cough but denies dyspnea and orthopnea. She has no questions or concerns. Overnight events reviewed and noted; the patient was found to have a temperature of 101 which responded to Tylenol. She has been afebrile since that time. Reason For Visit: UTI, BRONCHITIS, ENCEPHALOPATHY Physical Exam Vital Signs: Temp Pulse Resp BP Pulse Ox 98.5 F 76 19 153/51 H 100 06/18/17 11:53 06/18/17 11:53 06/18/17 11:53 06/18/17 11:53 06/18/17 11:53 Intake & Output 06/17/17 06/18/17 06/19/17 06:59 06:59 06:59 Intake Total 1665 3582 Balance 1665 3582 Weight 53.2 kg 53.2 kg General appearance: PRESENT: no acute distress, well-developed, well-nourished Head exam: PRESENT: atraumatic, normocephalic Eye exam: PRESENT: conjunctiva pink, EOMI, PERRLA. ABSENT: scleral icterus Ear exam: PRESENT: normal external ear exam Mouth exam: PRESENT: moist, tongue midline Neck exam: ABSENT: carotid bruit, JVD, lymphadenopathy, thyromegaly Respiratory exam: PRESENT: clear to auscultation nadira, rhonchi. ABSENT: rales, wheezes Cardiovascular exam: PRESENT: RRR, +S1, +S2. ABSENT: diastolic murmur, rubs, systolic murmur Pulses: PRESENT: normal dorsalis pedis pul Vascular exam: PRESENT: normal capillary refill GI/Abdominal exam: PRESENT: normal bowel sounds, soft. ABSENT: distended, guarding, mass, organolmegaly, rebound, tenderness Rectal exam: PRESENT: deferred Extremities exam: PRESENT: full ROM. ABSENT: calf tenderness, clubbing, pedal edema Neurological exam: PRESENT: alert, awake, oriented to person, oriented to place , CN II-XII grossly intact. ABSENT: oriented to time, oriented to situation, motor sensory deficit Psychiatric exam: PRESENT: appropriate affect, normal mood. ABSENT: homicidal ideation, suicidal ideation Skin exam: PRESENT: dry, intact, warm. ABSENT: cyanosis, rash Results Laboratory Results: 06/18/17 07:04 06/18/17 07:04 06/18/17 06/18/17 07:04 07:04 WBC 7.5 RBC 3.24 L Hgb 11.4 L Hct 33.5 L MCV 103 H MCH 35.2 H MCHC 34.1 RDW 14.3 H Plt Count 143 L Sodium 137.0 Potassium 3.7 Chloride 112 H Carbon Dioxide 15 L Anion Gap 10 BUN 8 Creatinine 0.60 Est GFR ( Amer) > 60 Est GFR (Non-Af Amer) > 60 Glucose 88 Calcium 8.5 06/15/17 16:12 Nasophary (Mrsa Only) MRSA Surveillance Culture - Final NO MRSA RECOVERED 06/16/17 05:55 NT-Pro-B Natriuret Pep 1610 H Impressions: Chest CT 06/15/17 00:00 IMPRESSION: Minimal hazy probably residual infiltrate left upper lung zone. No masses. No pleural effusions. Focal pleural thickening anterior the right base that is probably benign however CT surveillance with followup non contrasted CT in 3 to 6 months may be a consideration. Chest X-Ray 06/18/17 00:00 IMPRESSION: 1. Improving pneumonia on the left. 2. New abnormal density along the minor fissure on the right which may be related to small effusion although new area of pneumonia must also be considered. 3. Mild cardiomegaly Assessment & Plan - Diagnosis (1) UTI (urinary tract infection) Qualifiers: Urinary tract infection type: site unspecified Hematuria presence: without hematuria Qualified Code(s): N39.0 - Urinary tract infection, site not specified Is this a current diagnosis for this admission?: Yes Plan: The patient is admitted to the telemetry unit. Urine cultures: Klebsiella pneumoniae; resistant to ampicillin and macrobid She was febrile last night with a temperature of 101. Leukocytosis has continued trending down and is currently at 7.5. Patient states that she is feeling well today. We will continue to monitor and obtain repeat blood cultures if she needs to have elevated temperatures. The patient initially received Unasyn and has been transitioned to p.o. Augmentin. (2) Encephalopathy Is this a current diagnosis for this admission?: Yes Plan: Resolved; believe the patient has returned to her baseline as she is fully awake , conversational, engaged in talking about her breakfast this morning. Acute metabolic encephalopathy in the setting of dementia, likely due to UTI and evidenced by increased confusion from baseline. (3) Acute kidney injury Is this a current diagnosis for this admission?: Yes Plan: Resolved. Mild kidney injury: This is likely secondary to dehydration. Her creatinine at the time of discharge was 0.85. On admission her creatinine is noted to be 1.23 which subsequently improved following gentle IV fluid hydration. We will avoid nephrotoxic medications. We will monitor with daily chemistries. (4) Bronchitis Plan: Improving; Acute exacerbation of chronic bronchitis. CT scan of the chest revealed a possible improving pneumonia. Blood cultures: No growth at 72 hours. MRSA screening is negative. Sputum culture: Has not been obtained at this time. Continue Augmentin Supplemental oxygen as needed to maintain oxygen saturations greater than 92% Scheduled duo nebs and mucinex twice daily. Incentive spirometry to bedside; the patient will need guided use. (5) Coronary artery disease Is this a current diagnosis for this admission?: Yes Plan: With recent [place]. She will continue medical management with daily aspirin, atorvastatin, metoprolol, and diltiazem. The patient's family have indicated that they would not want aggressive interventions. (6) Hyperlipidemia Is this a current diagnosis for this admission?: Yes Plan: Continue atorvastatin 80 mg nightly. (7) Hypertension Is this a current diagnosis for this admission?: Yes Plan: Continue the patient's home medications: Metoprolol and diltiazem (8) Hyponatremia Is this a current diagnosis for this admission?: Yes Plan: Resolved; Secondary to dehydration in the setting of sepsis. (9) Systolic and diastolic CHF, chronic Is this a current diagnosis for this admission?: Yes Plan: Stable. She is placed on a cardiac diet. We will monitor closely for fluid volume overload. Daily weights. (10) Atrial fibrillation Qualifiers: Atrial fibrillation type: paroxysmal Qualified Code(s): I48.0 - Paroxysmal atrial fibrillation Is this a current diagnosis for this admission?: Yes Plan: Rate controlled with metoprolol and diltiazem. On daily aspirin and Xarelto therapy. (11) Dementia Qualifiers: Dementia type: unspecified type Dementia behavioral disturbance: without behavioral disturbance Qualified Code(s): F03.90 - Unspecified dementia without behavioral disturbance Plan: We will provide supportive care. Family have requested to meet with Palliative Care. Appreciate Ms. Michael's assistance and recommendations. (12) Elevated troponin Is this a current diagnosis for this admission?: Yes Plan: Secondary to recent non-STEMI. The patient's family have indicated that they do not wish for the patient to have aggressive interventions. Plan as above. (13) DNR (do not resuscitate) Is this a current diagnosis for this admission?: Yes Plan: The patient and family members will meet with Crista Michael NP (palliative care) to discuss admission to palliative care service vs hospice. - Time Time Spent with patient: 25-34 minutes Medications reviewed and adjusted accordingly: Yes Anticipated discharge: SNF Within: within 24 hours
[2017-06-18] MEDS: RIVAROXABAN 15 MG TABLET PO SCH (19:09)
[2017-06-18] MEDS: ATORVASTATIN CALCIUM 80 MG TABLET PO SCH (19:09)
[2017-06-18] MEDS: DONEPEZIL HCL 5 MG TABLET PO SCH (22:18)
[2017-06-18] MEDS: SERTRALINE HCL 50 MG TABLET PO SCH (22:18)
--- NOTE | 2017-06-18 22:35 | Progress Note ---
Provider Note Provider Note: Palliative care follow up visit: 06/18/17 2:55- 3:40 PM Mrs. Hale is admitted with some mental status changes resulting from UTI and some possible pneumonia. She was recently hospitalized with NSTEMI but only stayed at [facility] a day or so before returning to hospital this time. She has been a resident at [facility] for several weeks following the of her . She remains very weak and tofay is complaining of pain in her right wrist with is not swollen or reddened, but is very painful to touch. She has a history of goout and is on allopurinol. Patient looks much better today. She is alert and oriented to person and place. She is enjoying visiting with her daughters who are here from [place]. She has no complaints of respiratory distress although still has some cough and rhonchi. Appetite is good and bowels are moving without problems. Long discussion with her three daughters regarding her care after discharge. They were inquiring about hospice, but I explained that with patients current status, she really does not qualify for hospice at this time. She could of course, have another cardiac event at wany time or contract another infection which would render her appropriate at that time. I told her the nursing staff at [facility] is very well known for watching their patients carefully for changes or decline. They did discuss asking for increase in level of care for patient when she returns due to the weakness from illness. We discussed her cardiac status, EF and medications. I explained that patient may feel some fatigue while getting used tot he new cardaiac meds, but that will subside with time. We discussed asking for twice weekly weights if the facility cannnot do daily weights and symptoms to look for when they visit sa they are concerned about CHF. The sisters are also concerned with patietn sleeping too much during the day. We discussed that with age, illness and dementia, this is a common occurrence and asking the staff to get her up by 10 Am is not out of line, however, she may refuse. We talked about quality of life as well as activities to improve her condition. SHe does have DNR order at the facility. Options for cardiac care discussed, [facility] and [facility] department supervisor is now in [place] instead of [place] and they are working on getting patient established with PCP more locally. Support offered to daughters, especially the one who lives in town and visits regularly. There is good support between them and they say all six children are in agreement for mothers continued care at [facility]. They are going to ask for Palliative care order at the facility when she returns. Appreciate opportunity to participate in this patients care. Total time 45 minutes with patient, daughters.
[2017-06-19] MEDS: TEMAZEPAM 7.5 MG CAPSULE PO PRN (00:50)
[2017-06-19 05:22] LABS: HEMATOCRIT 35.1 % (36.0-47.0); MEAN CORPUSCULAR HEMOGLOBIN 35.1 pg (27.0-33.4); MEAN CORPUSCULAR HGB CONC 34.1 g/dL (32.0-36.0); MEAN CORPUSCULAR VOLUME 103 fl (80-97); PLATELET COUNT 166 10^3/uL (150-450)
[2017-06-19 05:32] LABS: ANION GAP 12 (5-19); BLOOD UREA NITROGEN 6 mg/dL (7-20); CALCIUM 8.8 mg/dL (8.4-10.2); CARBON DIOXIDE 15 mmol/L (22-30); CHLORIDE 109 mmol/L (98-107); GLUCOSE 94 mg/dL (75-110); POTASSIUM 3.7 mmol/L (3.6-5.0); SODIUM 135.7 mmol/L (137-145)
[2017-06-19] MEDS: AMOXICILLIN TR/POT CLAVULANATE 500-125 MG TAB PO SCH ×3 (06:45→21:49)
[2017-06-19] MEDS: LANSOPRAZOLE 30 MG TAB.RAP.DR PO SCH (06:45)
[2017-06-19] MEDS: IPRATROPIUM/ALBUTEROL 0.5-2.5 MG/3 ML AMPUL NEB SCH ×3 (08:57→19:54)
[2017-06-19] MEDS: ASPIRIN 81 MG TABLET, ENT COATED PO SCH (11:19)
[2017-06-19] MEDS: LACTOBACILLUS ACIDOPHILUS 250 MG TAB PO SCH ×2 (11:19→17:51)
[2017-06-19] MEDS: LORATADINE 10 MG TABLET PO SCH (11:19)
[2017-06-19] MEDS: MULTIVITAMIN TABLET PO SCH (11:19)
[2017-06-19] MEDS: MAGNESIUM OXIDE 400 MG TABLET PO SCH (11:20)
[2017-06-19] MEDS: GUAIFENESIN 600 MG TABLET.SA PO SCH ×2 (11:20→21:48)
[2017-06-19] MEDS: METOPROLOL SUCCINATE 25 MG TAB.SR.24H PO SCH (11:20)
[2017-06-19] MEDS: ALLOPURINOL 100 MG TABLET PO SCH (11:20)
[2017-06-19] MEDS: DILTIAZEM HCL 120 MG CAP.SR.24H PO SCH (11:21)
[2017-06-19] MEDS: NITROGLYCERIN 2.5 MG (0.1 MG/HR) PATCH.TD24 TD SCH (11:22)
[2017-06-19] MEDS: CLOBETASOL PROPIONATE 0.05% CREAM 15 GM TP SCH ×2 (11:23→17:52)
[2017-06-19] MEDS: DOCUSATE SODIUM 100 MG CAPSULE PO SCH ×2 (11:24→17:53)
[2017-06-19] MEDS: LOPERAMIDE HCL 2 MG CAPSULE PO PRN (12:48)
[2017-06-19] MEDS: NYSTATIN 500000 UNIT/5 ML UDCUP PO SCH ×3 (12:49→21:50)
--- NOTE | 2017-06-19 12:56 | PDOC PROGRESS REPORT ---
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 On day of her discharge after returning to her primary residence at [facility], the patient was found to some increased confusion and shortness of breath. She was returned to the emergency department where she was found to have a urinary tract infection and pneumonia. She was readmitted on 06/15/17. The patient is seen on morning rounds resting in bed comfortably on room air. Upon entering the room she is found sleeping, but wakes easily. She continues to have a slightly productive cough but denies dyspnea and orthopnea. She has no questions or concerns. She has no questions or concerns at this time. Reason For Visit: UTI, BRONCHITIS, ENCEPHALOPATHY Physical Exam Vital Signs: Temp Pulse Resp BP Pulse Ox 98.1 F 62 18 146/64 H 92 06/19/17 11:35 06/19/17 11:35 06/19/17 11:35 06/19/17 11:35 06/19/17 11:35 Intake & Output 06/18/17 06/19/17 06/20/17 06:59 06:59 06:59 Intake Total 3582 1386 Balance 3582 1386 Weight 53.2 kg 59.7 kg General appearance: PRESENT: no acute distress, well-developed, well-nourished Head exam: PRESENT: atraumatic, normocephalic Eye exam: PRESENT: conjunctiva pink, EOMI, PERRLA. ABSENT: scleral icterus Ear exam: PRESENT: normal external ear exam Mouth exam: PRESENT: moist, tongue midline Neck exam: ABSENT: carotid bruit, JVD, lymphadenopathy, thyromegaly Respiratory exam: PRESENT: clear to auscultation nadira, decreased breath sounds - bibasilar; poor inspiratory effort, symmetrical, unlabored. ABSENT: rales, wheezes Cardiovascular exam: PRESENT: RRR, +S1, +S2. ABSENT: diastolic murmur, rubs, systolic murmur Pulses: PRESENT: normal dorsalis pedis pul Vascular exam: PRESENT: normal capillary refill GI/Abdominal exam: PRESENT: normal bowel sounds, soft. ABSENT: distended, guarding, mass, organolmegaly, rebound, tenderness Rectal exam: PRESENT: deferred Extremities exam: PRESENT: full ROM. ABSENT: calf tenderness, clubbing, pedal edema Neurological exam: PRESENT: alert, awake, oriented to person, oriented to place , CN II-XII grossly intact. ABSENT: oriented to time, oriented to situation, motor sensory deficit Psychiatric exam: PRESENT: appropriate affect, normal mood. ABSENT: homicidal ideation, suicidal ideation Skin exam: PRESENT: dry, intact, warm. ABSENT: cyanosis, rash Results Laboratory Results: 06/19/17 04:23 06/19/17 04:23 06/19/17 06/19/17 04:23 04:23 WBC 9.0 RBC 3.40 L Hgb 12.0 Hct 35.1 L MCV 103 H MCH 35.1 H MCHC 34.1 RDW 14.0 Plt Count 166 Sodium 135.7 L Potassium 3.7 Chloride 109 H Carbon Dioxide 15 L Anion Gap 12 BUN 6 L Creatinine 0.60 Est GFR ( Amer) > 60 Est GFR (Non-Af Amer) > 60 Glucose 94 Calcium 8.8 06/16/17 05:55 NT-Pro-B Natriuret Pep 1610 H Impressions: Chest CT 06/15/17 00:00 IMPRESSION: Minimal hazy probably residual infiltrate left upper lung zone. No masses. No pleural effusions. Focal pleural thickening anterior the right base that is probably benign however CT surveillance with followup non contrasted CT in 3 to 6 months may be a consideration. Chest X-Ray 06/18/17 00:00 IMPRESSION: 1. Improving pneumonia on the left. 2. New abnormal density along the minor fissure on the right which may be related to small effusion although new area of pneumonia must also be considered. 3. Mild cardiomegaly Assessment & Plan - Diagnosis (1) UTI (urinary tract infection) Qualifiers: Urinary tract infection type: site unspecified Hematuria presence: without hematuria Qualified Code(s): N39.0 - Urinary tract infection, site not specified Is this a current diagnosis for this admission?: Yes Plan: Improved; the patient has been afebrile for > 48 hrs. Leukocytosis has resolved. Urine cultures: Klebsiella pneumoniae; resistant to ampicillin and macrobid The patient initially received Unasyn and has been transitioned to p.o. Augmentin. (2) Encephalopathy Is this a current diagnosis for this admission?: Yes Plan: Resolved; believe the patient has returned to her baseline. Acute metabolic encephalopathy in the setting of dementia, likely due to UTI and evidenced by increased confusion from baseline. (3) Acute kidney injury Is this a current diagnosis for this admission?: Yes Plan: Resolved. Mild kidney injury: This is likely secondary to dehydration. Her creatinine at the time of discharge was 0.85. On admission her creatinine is noted to be 1.23 which subsequently improved following gentle IV fluid hydration. We will avoid nephrotoxic medications. Encourage p.o. fluids (4) Bronchitis Plan: Improving; Acute exacerbation of chronic bronchitis. CT scan of the chest revealed a possible improving pneumonia. Blood cultures: No growth at 4 days MRSA screening is negative. Sputum culture: Has not been obtained at this time. Continue Augmentin Supplemental oxygen as needed to maintain oxygen saturations greater than 92% Scheduled duo nebs and mucinex twice daily. Incentive spirometry to bedside; the patient will need guided use. (5) Coronary artery disease Is this a current diagnosis for this admission?: Yes Plan: With recent [facility]. She will continue medical management with daily aspirin, atorvastatin, metoprolol, and diltiazem. The patient's family have indicated that they would not want aggressive interventions. (6) Hyperlipidemia Is this a current diagnosis for this admission?: Yes Plan: Continue atorvastatin 80 mg nightly. (7) Hypertension Is this a current diagnosis for this admission?: Yes Plan: Adequate control. Continue the patient's home medications: Metoprolol and diltiazem (8) Hyponatremia Is this a current diagnosis for this admission?: Yes Plan: Resolved; Secondary to dehydration in the setting of sepsis. (9) Systolic and diastolic CHF, chronic Is this a current diagnosis for this admission?: Yes Plan: Stable. She is placed on a cardiac diet. We will monitor closely for fluid volume overload. Daily weights. (10) Atrial fibrillation Qualifiers: Atrial fibrillation type: paroxysmal Qualified Code(s): I48.0 - Paroxysmal atrial fibrillation Is this a current diagnosis for this admission?: Yes Plan: Rate controlled with metoprolol and diltiazem. On daily aspirin and Xarelto therapy. (11) Dementia Qualifiers: Dementia type: unspecified type Dementia behavioral disturbance: without behavioral disturbance Qualified Code(s): F03.90 - Unspecified dementia without behavioral disturbance Plan: We will provide supportive care. Family have requested to meet with Palliative Care. Appreciate Phuong Alec's assistance and recommendations. (12) Elevated troponin Is this a current diagnosis for this admission?: Yes Plan: Secondary to recent non-STEMI. The patient's family have indicated that they do not wish for the patient to have aggressive interventions. Plan as above. (13) DNR (do not resuscitate) Is this a current diagnosis for this admission?: Yes Plan: Plan to be discharged with outpatient palliative care services. - Time Time Spent with patient: 35 or more minutes Anticipated discharge: SNF Within: when bed available - Plan Summary Plan Summary: I spoke with 2 of the patient's daughters today, Shelley and Shani. I explained to them that at this time the patient requires total care. I have expressed that my recommendations are for the patient to be discharged to SNF for short term rehab with possible transition to Skilled Nursing Care if she does not improve over the next few weeks. . Shelley Aleksandra ([phone]), is resistant to this idea and wishes the patient to return to [facility] assisted living. Ms. Shani Duarte ([phone]) is more receptive of this recommendation. They will discuss amongst themselves and meet with discharge planning to establish a safe discharge plan.
[2017-06-19] MEDS ORDERED: FLUCONAZOLE 100 MG TABLET PO ONE (16:30)
[2017-06-19] MEDS: RIVAROXABAN 15 MG TABLET PO SCH (17:49)
[2017-06-19] MEDS: ATORVASTATIN CALCIUM 80 MG TABLET PO SCH (17:51)
[2017-06-19] MEDS: SERTRALINE HCL 50 MG TABLET PO SCH (21:48)
[2017-06-19] MEDS: DONEPEZIL HCL 5 MG TABLET PO SCH (21:49)
[2017-06-20] MEDS: NYSTATIN CREAM 15 GM TP SCH ×3 (02:06→17:42)
[2017-06-20] MEDS: AMOXICILLIN TR/POT CLAVULANATE 500-125 MG TAB PO SCH ×3 (05:50→23:15)
[2017-06-20] MEDS: LANSOPRAZOLE 30 MG TAB.RAP.DR PO SCH (05:51)
[2017-06-20] MEDS: IPRATROPIUM/ALBUTEROL 0.5-2.5 MG/3 ML AMPUL NEB SCH ×3 (09:16→20:36)
[2017-06-20] MEDS: DOCUSATE SODIUM 100 MG CAPSULE PO SCH ×2 (09:36→17:37)
[2017-06-20] MEDS: CLOBETASOL PROPIONATE 0.05% CREAM 15 GM TP SCH ×2 (09:39→17:43)
[2017-06-20] MEDS: MAGNESIUM OXIDE 400 MG TABLET PO SCH (09:40)
[2017-06-20] MEDS: ASPIRIN 81 MG TABLET, ENT COATED PO SCH (09:40)
[2017-06-20] MEDS: MULTIVITAMIN TABLET PO SCH (09:40)
[2017-06-20] MEDS: NYSTATIN 500000 UNIT/5 ML UDCUP PO SCH ×4 (09:40→23:16)
[2017-06-20] MEDS: ALLOPURINOL 100 MG TABLET PO SCH (09:40)
[2017-06-20] MEDS: GUAIFENESIN 600 MG TABLET.SA PO SCH ×2 (09:40→23:15)
[2017-06-20] MEDS: DILTIAZEM HCL 120 MG CAP.SR.24H PO SCH (09:41)
[2017-06-20] MEDS: LACTOBACILLUS ACIDOPHILUS 250 MG TAB PO SCH ×2 (09:41→17:40)
[2017-06-20] MEDS: LORATADINE 10 MG TABLET PO SCH (09:41)
[2017-06-20] MEDS: NITROGLYCERIN 2.5 MG (0.1 MG/HR) PATCH.TD24 TD SCH (09:43)
[2017-06-20] MEDS: METOPROLOL SUCCINATE 25 MG TAB.SR.24H PO SCH (12:17)
--- NOTE | 2017-06-20 13:00 | PDOC PROGRESS REPORT ---
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 On day of her discharge after returning to her primary residence at [facility], the patient was found to some increased confusion and shortness of breath. She was returned to the emergency department where she was found to have a urinary tract infection and pneumonia. She was readmitted on 06/15/17. The patient is seen on morning rounds resting in bed comfortably 2 lpm via nasal cannula. She is turned down to room air and continues to maintain oxygen saturations at 92%. Upon entering the room she is found sleeping, but wakes easily. She continues to have a slightly productive cough but denies dyspnea and orthopnea; she is essentially unchanged from yesterday. Unfortunately, no family members are present at this time. Reason For Visit: UTI, BRONCHITIS, ENCEPHALOPATHY Physical Exam Vital Signs: Temp Pulse Resp BP Pulse Ox 99.7 F 72 20 136/36 H 95 06/20/17 07:36 06/20/17 09:51 06/20/17 09:16 06/20/17 09:51 06/20/17 09:16 Intake & Output 06/19/17 06/20/17 06/21/17 06:59 06:59 06:59 Intake Total 1386 580 Balance 1386 580 Weight 59.7 kg 59.7 kg General appearance: PRESENT: no acute distress, cooperative, well-developed, well-nourished Head exam: PRESENT: atraumatic, normocephalic Eye exam: PRESENT: conjunctiva pink, EOMI, PERRLA. ABSENT: scleral icterus Ear exam: PRESENT: normal external ear exam Mouth exam: PRESENT: moist, tongue midline Neck exam: ABSENT: carotid bruit, JVD, lymphadenopathy, thyromegaly Respiratory exam: PRESENT: clear to auscultation nadira, symmetrical, unlabored. ABSENT: rales, rhonchi, wheezes Cardiovascular exam: PRESENT: RRR, +S1, +S2. ABSENT: diastolic murmur, rubs, systolic murmur Pulses: PRESENT: normal dorsalis pedis pul Vascular exam: PRESENT: normal capillary refill GI/Abdominal exam: PRESENT: normal bowel sounds, soft. ABSENT: distended, guarding, mass, organolmegaly, rebound, tenderness Rectal exam: PRESENT: deferred Extremities exam: PRESENT: full ROM. ABSENT: calf tenderness, clubbing, pedal edema Musculoskeletal exam: PRESENT: tenderness - Rt wrist; no edema or erythema present. ABSENT: deformity Neurological exam: PRESENT: alert, awake, oriented to person, CN II-XII grossly intact, other - Pleasant, forgetful. ABSENT: motor sensory deficit Psychiatric exam: PRESENT: appropriate affect, normal mood. ABSENT: homicidal ideation, suicidal ideation Skin exam: PRESENT: dry, erythema - erythema to skin folds and buttocks, warm. ABSENT: cyanosis, rash Results Laboratory Results: 06/19/17 04:23 06/19/17 04:23 06/15/17 11:32 Blood Blood Culture - Final NO GROWTH IN 5 DAYS 06/16/17 05:55 NT-Pro-B Natriuret Pep 1610 H Impressions: Chest CT 06/15/17 00:00 IMPRESSION: Minimal hazy probably residual infiltrate left upper lung zone. No masses. No pleural effusions. Focal pleural thickening anterior the right base that is probably benign however CT surveillance with followup non contrasted CT in 3 to 6 months may be a consideration. Chest X-Ray 06/18/17 00:00 IMPRESSION: 1. Improving pneumonia on the left. 2. New abnormal density along the minor fissure on the right which may be related to small effusion although new area of pneumonia must also be considered. 3. Mild cardiomegaly Assessment & Plan - Diagnosis (1) UTI (urinary tract infection) Qualifiers: Urinary tract infection type: site unspecified Hematuria presence: without hematuria Qualified Code(s): N39.0 - Urinary tract infection, site not specified Is this a current diagnosis for this admission?: Yes Plan: Improved; the patient has been afebrile for > 48 hrs. Leukocytosis has resolved. Urine cultures: Klebsiella pneumoniae; resistant to ampicillin and macrobid The patient initially received Unasyn and has been transitioned to p.o. Augmentin. (2) Encephalopathy Is this a current diagnosis for this admission?: Yes Plan: Resolved; believe the patient has returned to her baseline. Acute metabolic encephalopathy in the setting of dementia, likely due to UTI and evidenced by increased confusion from baseline. (3) Acute kidney injury Is this a current diagnosis for this admission?: Yes Plan: Resolved. Mild kidney injury: This is likely secondary to dehydration. Her creatinine at the time of discharge was 0.85. On admission her creatinine is noted to be 1.23 which subsequently improved following gentle IV fluid hydration. We will avoid nephrotoxic medications. Encourage p.o. fluids (4) Bronchitis Plan: Improving; Acute exacerbation of chronic bronchitis. CT scan of the chest revealed a possible improving pneumonia. Blood cultures: No growth at 5 days MRSA screening is negative. Sputum culture: Has not been obtained at this time. Continue Augmentin Supplemental oxygen as needed to maintain oxygen saturations greater than 92% Scheduled duo nebs and mucinex twice daily. Incentive spirometry to bedside; the patient will need guided use. (5) Coronary artery disease Is this a current diagnosis for this admission?: Yes Plan: With recent [place]. She will continue medical management with daily aspirin, atorvastatin, metoprolol, and diltiazem. The patient's family have indicated that they would not want aggressive interventions. (6) Hyperlipidemia Is this a current diagnosis for this admission?: Yes Plan: Continue atorvastatin 80 mg nightly. (7) Hypertension Is this a current diagnosis for this admission?: Yes Plan: Adequate control. Continue the patient's home medications: Metoprolol and diltiazem (8) Hyponatremia Is this a current diagnosis for this admission?: Yes Plan: Resolved; Secondary to dehydration in the setting of sepsis. (9) Systolic and diastolic CHF, chronic Is this a current diagnosis for this admission?: Yes Plan: Stable. She is placed on a cardiac diet. We will monitor closely for fluid volume overload. Daily weights. (10) Atrial fibrillation Qualifiers: Atrial fibrillation type: paroxysmal Qualified Code(s): I48.0 - Paroxysmal atrial fibrillation Is this a current diagnosis for this admission?: Yes Plan: Rate controlled with metoprolol and diltiazem. On daily aspirin and Xarelto therapy. (11) Dementia Qualifiers: Dementia type: unspecified type Dementia behavioral disturbance: without behavioral disturbance Qualified Code(s): F03.90 - Unspecified dementia without behavioral disturbance Plan: We will provide supportive care. Family have requested to meet with Palliative Care. Appreciate Ms. Michael's assistance and recommendations. (12) Elevated troponin Is this a current diagnosis for this admission?: Yes Plan: Secondary to recent non-STEMI. The patient's family have indicated that they do not wish for the patient to have aggressive interventions. Plan as above. (13) DNR (do not resuscitate) Is this a current diagnosis for this admission?: Yes Plan: Plan to be discharged with outpatient palliative care services. (14) One[place] infection Is this a current diagnosis for this admission?: Yes Plan: The patient received a one time dose of difflucan yesterday. Continue Nystatin swish. Continue Nystatin cream. - Time Time Spent with patient: 15-24 minutes Anticipated discharge: SNF - For Short Term Rehab or [facility]. Within: within 24 hours - Plan Summary Plan Summary: The patient was previously a resident of [facility] and [facility]. The patient is currently requiring total nursing care secondary to dementia and debility. Physical therapy notes documented that the patient was able to ambulate approximately 6 feet with a rolling walker and a 2 person moderate assist. The patient is not safe to be discharged to an assisted living facility and requires nursing facility for, at minimum, short-term rehabilitation.
[2017-06-20] MEDS: ATORVASTATIN CALCIUM 80 MG TABLET PO SCH (17:40)
[2017-06-20] MEDS: RIVAROXABAN 15 MG TABLET PO SCH (17:41)
[2017-06-20 17:49] LABS: HEMATOCRIT 30.6 % (36.0-47.0); HEMOGLOBIN 10.4 g/dL (12.0-15.5); MEAN CORPUSCULAR HGB CONC 34.1 g/dL (32.0-36.0); MEAN CORPUSCULAR VOLUME 103 fl (80-97); PLATELET COUNT 177 10^3/uL (150-450); RED BLOOD COUNT 2.98 10^6/uL (3.72-5.28); RED CELL DISTRIBUTION WIDTH 14.2 % (11.5-14.0); WHITE BLOOD COUNT 7.9 10^3/uL (4.0-10.5)
[2017-06-20 18:09] LABS: ANION GAP 9 (5-19); BLOOD UREA NITROGEN 6 mg/dL (7-20); CALCIUM 8.5 mg/dL (8.4-10.2); CARBON DIOXIDE 16 mmol/L (22-30); CHLORIDE 110 mmol/L (98-107); GLUCOSE 114 mg/dL (75-110); POTASSIUM 3.5 mmol/L (3.6-5.0); SODIUM 135.2 mmol/L (137-145)
--- NOTE | 2017-06-20 20:23 | Progress Note ---
Provider Note Provider Note: Palliative care note 06/20/17 Several attempts made to meet with patient and her daughters ove a period of three hours. Patient was sleeping on eac attempt and no family members were present. Will try to talk with them tomorrow. I agree that patient is too weak to return to [facility] and may need SNF for rehab before returning to SNF. l
[2017-06-20] MEDS: SERTRALINE HCL 50 MG TABLET PO SCH (23:15)
[2017-06-20] MEDS: DONEPEZIL HCL 5 MG TABLET PO SCH (23:16)
[2017-06-21] MEDS: AMOXICILLIN TR/POT CLAVULANATE 500-125 MG TAB PO SCH ×3 (05:57→22:03)
[2017-06-21] MEDS: LANSOPRAZOLE 30 MG TAB.RAP.DR PO SCH (05:57)
[2017-06-21] MEDS: IPRATROPIUM/ALBUTEROL 0.5-2.5 MG/3 ML AMPUL NEB SCH ×3 (07:38→21:20)
[2017-06-21] MEDS: LORATADINE 10 MG TABLET PO SCH (09:14)
[2017-06-21] MEDS: MULTIVITAMIN TABLET PO SCH (09:14)
[2017-06-21] MEDS: ALLOPURINOL 100 MG TABLET PO SCH (09:14)
[2017-06-21] MEDS: ASPIRIN 81 MG TABLET, ENT COATED PO SCH (09:14)
[2017-06-21] MEDS: GUAIFENESIN 600 MG TABLET.SA PO SCH ×2 (09:14→22:03)
[2017-06-21] MEDS: LACTOBACILLUS ACIDOPHILUS 250 MG TAB PO SCH ×2 (09:15→17:20)
[2017-06-21] MEDS: DILTIAZEM HCL 120 MG CAP.SR.24H PO SCH (09:15)
[2017-06-21] MEDS: NYSTATIN 500000 UNIT/5 ML UDCUP PO SCH (09:15)
[2017-06-21] MEDS: MAGNESIUM OXIDE 400 MG TABLET PO SCH (09:15)
[2017-06-21] MEDS: NITROGLYCERIN 2.5 MG (0.1 MG/HR) PATCH.TD24 TD SCH (09:16)
[2017-06-21] MEDS: NYSTATIN CREAM 15 GM TP SCH ×2 (09:16→17:20)
[2017-06-21] MEDS: METOPROLOL SUCCINATE 25 MG TAB.SR.24H PO SCH (09:25)
[2017-06-21] MEDS: CLOBETASOL PROPIONATE 0.05% CREAM 15 GM TP SCH ×2 (09:25→17:18)
[2017-06-21] MEDS: DOCUSATE SODIUM 100 MG CAPSULE PO SCH ×2 (09:25→17:17)
[2017-06-21] MEDS ORDERED: POTASSIUM CHLORIDE 20 MEQ/15 ML UDCUP PO ONE (10:45)
--- NOTE | 2017-06-21 11:52 | RADIOLOGY REPORT (SQ) ---
EXAM DESCRIPTION: ACUTE ABDOMEN SERIES COMPLETED DATE/TIME: 06/21/2017 11:41 am REASON FOR STUDY: abd pain COMPARISON: Chest films 06/15/2017, 06/13/2017, 06/18/2017 CT chest 06/15/2017 NUMBER OF VIEWS: Three views. TECHNIQUE: Frontal chest, supine abdomen and upright abdomen radiographic images acquired. LIMITATIONS: None. FINDINGS: CHEST: A moderate size right pleural effusion is now evident, new compared to 06/18/2017. There is bibasilar airspace disease right greater than left atelectasis versus pneumonia. Stable mild cardiomegaly FREE AIR: None. No abnormal gas collections. BOWEL GAS PATTERN: Nonobstructive pattern. No dilated loops or air fluid levels. CALCIFICATIONS: Very heavy atherosclerotic arterial vascular calcification. HARDWARE: None in the abdomen. SOFT TISSUES: No gross mass or suggestion of organomegaly. BONES: No acute fracture. No worrisome bone lesions. OTHER: No other significant finding. IMPRESSION: Moderate size right pleural effusion Bibasilar airspace disease right greater than left TECHNICAL DOCUMENTATION: JOB ID: [id number]- All Rights Reserved
[2017-06-21 12:41] LABS: ANION GAP 10 (5-19); BLOOD UREA NITROGEN 11 mg/dL (7-20); CALCIUM 8.5 mg/dL (8.4-10.2); CARBON DIOXIDE 16 mmol/L (22-30); CHLORIDE 112 mmol/L (98-107); GLUCOSE 131 mg/dL (75-110); SODIUM 137.7 mmol/L (137-145)
[2017-06-21 12:53] LABS: TROPONIN I 0.042 ng/mL
[2017-06-21 12:54] LABS: POTASSIUM 4.5 mmol/L (3.6-5.0)
[2017-06-21] MEDS ORDERED: FUROSEMIDE INJ/PF 20 MG/2 ML SDV IV ONE (13:15)
--- NOTE | 2017-06-21 13:33 | EKG REPORT ---
SEVERITY:- ABNORMAL ECG - SINUS RHYTHM, LEFT BUNDLE BRANCH BLOCK : Confirmed by: Walter Grant MD 21-Jun-2017 13:33:01
[2017-06-21 13:41] LABS: HEMATOCRIT 27.1 % (36.0-47.0); HEMOGLOBIN 9.3 g/dL (12.0-15.5); MEAN CORPUSCULAR HEMOGLOBIN 35.3 pg (27.0-33.4); MEAN CORPUSCULAR HGB CONC 34.3 g/dL (32.0-36.0); MEAN CORPUSCULAR VOLUME 103 fl (80-97); PLATELET COUNT 244 10^3/uL (150-450); RED BLOOD COUNT 2.63 10^6/uL (3.72-5.28); RED CELL DISTRIBUTION WIDTH 14.3 % (11.5-14.0); WHITE BLOOD COUNT 12.8 10^3/uL (4.0-10.5)
[2017-06-21] MEDS ORDERED: FUROSEMIDE 40 MG TABLET PO ONE (16:15)
[2017-06-21] MEDS: RIVAROXABAN 15 MG TABLET PO SCH (16:32)
--- NOTE | 2017-06-21 16:39 | PDOC PROGRESS REPORT ---
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 On day of her discharge after returning to her primary residence at [facility], the patient was found to some increased confusion and shortness of breath. She was returned to the emergency department where she was found to have a urinary tract infection and pneumonia. She was readmitted on 06/15/17. The patient is seen on morning rounds resting in bed comfortably 2 lpm via nasal cannula. Unfortunately, no family members are present at this time. Upon entering the room, the patient is found sleeping, but she does wake easily. She complains of feeling poorly today. She complains of chest pain that worsens with cough and deep breath and indicates her sternal and right her chest. The pain is not reproducible with palpation. States that she is very tired and she is uninterested in eating. Reason For Visit: UTI, BRONCHITIS, ENCEPHALOPATHY Physical Exam Vital Signs: Temp Pulse Resp BP Pulse Ox 99.0 F 95 20 135/30 H 92 06/21/17 15:44 06/21/17 15:44 06/21/17 15:44 06/21/17 15:44 06/21/17 15:44 Intake & Output 06/20/17 06/21/17 06/22/17 06:59 06:59 06:59 Intake Total 580 720 Balance 580 720 Weight 59.7 kg 60.8 kg General appearance: PRESENT: no acute distress, well-developed, well-nourished Head exam: PRESENT: atraumatic, normocephalic Eye exam: PRESENT: conjunctiva pink, EOMI, PERRLA. ABSENT: scleral icterus Ear exam: PRESENT: normal external ear exam Mouth exam: PRESENT: moist, tongue midline Neck exam: ABSENT: carotid bruit, JVD, lymphadenopathy, thyromegaly Respiratory exam: PRESENT: clear to auscultation nadira, rhonchi, symmetrical, unlabored. ABSENT: rales, wheezes Cardiovascular exam: PRESENT: RRR, +S1, +S2. ABSENT: diastolic murmur, rubs, systolic murmur Pulses: PRESENT: normal dorsalis pedis pul Vascular exam: PRESENT: normal capillary refill GI/Abdominal exam: PRESENT: normal bowel sounds, soft. ABSENT: distended, guarding, mass, organolmegaly, rebound, tenderness Rectal exam: PRESENT: deferred Extremities exam: PRESENT: full ROM. ABSENT: calf tenderness, clubbing, pedal edema Neurological exam: PRESENT: alert, awake, oriented to person, oriented to place , CN II-XII grossly intact, other - Forgetful, fatigued. ABSENT: motor sensory deficit Psychiatric exam: PRESENT: appropriate affect, normal mood. ABSENT: homicidal ideation, suicidal ideation Skin exam: PRESENT: dry, intact, warm. ABSENT: cyanosis, rash Results Laboratory Results: 06/21/17 12:10 06/21/17 12:10 06/20/17 06/20/17 06/21/17 17:25 17:25 10:53 WBC 7.9 RBC 2.98 L Hgb 10.4 L Hct 30.6 L MCV 103 H MCH 35.0 H MCHC 34.1 RDW 14.2 H Plt Count 177 Sodium 135.2 L Cancelled Potassium 3.5 L Cancelled Chloride 110 H Cancelled Carbon Dioxide 16 L Cancelled Anion Gap 9 Cancelled BUN 6 L Cancelled Creatinine 0.66 Cancelled Est GFR ( Amer) > 60 Cancelled Est GFR (Non-Af Amer) > 60 Cancelled Glucose 114 H Cancelled Calcium 8.5 Cancelled 06/21/17 06/21/17 12:10 12:10 WBC 12.8 H RBC 2.63 L Hgb 9.3 L Hct 27.1 L MCV 103 H MCH 35.3 H MCHC 34.3 RDW 14.3 H Plt Count 244 Sodium 137.7 Potassium 4.5 D Chloride 112 H Carbon Dioxide 16 L Anion Gap 10 BUN 11 Creatinine 0.68 Est GFR ( Amer) > 60 Est GFR (Non-Af Amer) > 60 Glucose 131 H Calcium 8.5 06/15/17 12:38 Blood Blood Culture - Final NO GROWTH IN 5 DAYS 06/15/17 11:32 Blood Blood Culture - Final NO GROWTH IN 5 DAYS 06/16/17 06/20/17 06/21/17 05:55 17:25 10:53 Troponin I 0.047 Cancelled NT-Pro-B Natriuret Pep 1610 H Cancelled 02/19/18 12:10 Troponin I 0.042 NT-Pro-B Natriuret Pep 2140 H Impressions: Chest CT 06/15/17 00:00 IMPRESSION: Minimal hazy probably residual infiltrate left upper lung zone. No masses. No pleural effusions. Focal pleural thickening anterior the right base that is probably benign however CT surveillance with followup non contrasted CT in 3 to 6 months may be a consideration. Chest X-Ray 06/18/17 00:00 IMPRESSION: 1. Improving pneumonia on the left. 2. New abnormal density along the minor fissure on the right which may be related to small effusion although new area of pneumonia must also be considered. 3. Mild cardiomegaly Acute Abdomen Series 06/21/17 00:00 IMPRESSION: Moderate size right pleural effusion Bibasilar airspace disease right greater than left Assessment & Plan - Diagnosis (1) Chest pain Qualifiers: Chest pain type: unspecified Qualified Code(s): R07.9 - Chest pain, unspecified Is this a current diagnosis for this admission?: Yes Plan: I was actually anticipating discharging the patient today to a [facility] facility for short-term rehab versus long-term placement. Unfortunately, the patient developed chest pain late yesterday evening. Initial blood work was reassuring. Repeat EKG demonstrates a left bundle branch block which has been present on previous EKGs. Troponins continue to trend down. Acute abdominal series demonstrated bilateral airspace disease and a right pleural effusion. No evidence of heavy stool load/ileus was observed. The patient will be diuresed with p.o. furosemide. Antibiotic coverage has been expanded to include coverage for aspiration and healthcare associated pneumonia; the patient is on Augmentin, Levaquin, and clindamycin. We will repeat the chest x-ray in the morning. If clear following diuresis, will be less inclined to believe that the patient is developing a pneumonia and instead is experiencing pulmonary edema secondary to CHF. (2) UTI (urinary tract infection) Qualifiers: Urinary tract infection type: site unspecified Hematuria presence: without hematuria Qualified Code(s): N39.0 - Urinary tract infection, site not specified Is this a current diagnosis for this admission?: Yes Plan: Improved; the patient has been afebrile for > 48 hrs. Leukocytosis has resolved. Urine cultures: Klebsiella pneumoniae; resistant to ampicillin and macrobid The patient initially received Unasyn and has been transitioned to p.o. Augmentin; currently on day 4 of therapy. (3) Encephalopathy Is this a current diagnosis for this admission?: Yes Plan: Resolved; believe the patient has returned to her baseline. Acute metabolic encephalopathy in the setting of dementia, likely due to UTI and evidenced by increased confusion from baseline. (4) Acute kidney injury Is this a current diagnosis for this admission?: Yes Plan: Resolved. Mild kidney injury: This is likely secondary to dehydration. We will avoid nephrotoxic medications. Encourage p.o. fluids (5) Bronchitis Plan: Acutely worsened today; concerning for care associated pneumonia. Chest x-ray today reveals bilateral airspace disease with right greater than left, and a right pleural effusion. CT scan of the chest revealed a possible improving pneumonia. Blood cultures: No growth at 5 days MRSA screening is negative. Sputum culture: Has not been obtained at this time. Will repeat blood cultures Continue Augmentin. Will start p.o. clindamycin for coverage of a potential aspiration pneumonia. Will start p.o. Levaquin for care associated pneumonia. Supplemental oxygen as needed to maintain oxygen saturations greater than 92% Scheduled duo nebs and mucinex twice daily. Incentive spirometry to bedside; the patient will need guided use. (6) Coronary artery disease Is this a current diagnosis for this admission?: Yes Plan: With recent [place]. She will continue medical management with daily aspirin, atorvastatin, metoprolol, and diltiazem. The patient's family have indicated that they would not want aggressive interventions. (7) Hyperlipidemia Is this a current diagnosis for this admission?: Yes Plan: Continue atorvastatin 80 mg nightly. (8) Hypertension Is this a current diagnosis for this admission?: Yes Plan: Adequate control. Continue the patient's home medications: Metoprolol and diltiazem (9) Hyponatremia Is this a current diagnosis for this admission?: Yes Plan: Resolved; Secondary to dehydration in the setting of sepsis. (10) Systolic and diastolic CHF, chronic Is this a current diagnosis for this admission?: Yes Plan: ProBNP is elevated to 2000 today. The patient's weight also appears to be up from 53 kg on admission to 60 kg. We will provide Lasix 60 mg p.o. now. Unfortunately, IV access is unavailable at this time. She is on a cardiac diet. We will monitor closely for fluid volume overload. Daily weights. (11) Atrial fibrillation Qualifiers: Atrial fibrillation type: paroxysmal Qualified Code(s): I48.0 - Paroxysmal atrial fibrillation Is this a current diagnosis for this admission?: Yes Plan: Rate controlled with metoprolol and diltiazem. On daily aspirin and Xarelto therapy. (12) Dementia Qualifiers: Dementia type: unspecified type Dementia behavioral disturbance: without behavioral disturbance Qualified Code(s): F03.90 - Unspecified dementia without behavioral disturbance Plan: We will provide supportive care. Family have requested to meet with Palliative Care. Appreciate Ms. Michael's assistance and recommendations. (13) Elevated troponin Is this a current diagnosis for this admission?: Yes Plan: Secondary to recent non-STEMI. The patient's family have indicated that they do not wish for the patient to have aggressive interventions. Plan as above. (14) DNR (do not resuscitate) Is this a current diagnosis for this admission?: Yes Plan: Plan to be discharged with outpatient palliative care services. (15) [place] infection Is this a current diagnosis for this admission?: Yes Plan: The patient received a one time dose of difflucan yesterday. Continue Nystatin swish. Continue Nystatin cream. - Time Time Spent with patient: 35 or more minutes Medications reviewed and adjusted accordingly: Yes Anticipated discharge: SNF
[2017-06-21] MEDS: ATORVASTATIN CALCIUM 80 MG TABLET PO SCH (17:20)
[2017-06-21] MEDS ORDERED: FUROSEMIDE INJ/PF 20 MG/2 ML SDV IV SCH (18:00)
[2017-06-21] MEDS ORDERED: DILTIAZEM HCL 60 MG TABLET PO ONE (21:14)
[2017-06-21] MEDS ORDERED: VANCOMYCIN HCL 0 MG in DEXTROSE 5%-WATER 250 ML IV NR (21:30)
[2017-06-21] MEDS ORDERED: VANCOMYCIN HCL 1,000 MG in DEXTROSE 5%-WATER 250 ML IV SCH (22:00)
[2017-06-21] MEDS ORDERED: CEFEPIME 1 GM/D5W RTU 1 GM/50 ML RTUPB IV SCH (22:00)
[2017-06-21] MEDS: DONEPEZIL HCL 5 MG TABLET PO SCH (22:03)
[2017-06-21] MEDS: SERTRALINE HCL 50 MG TABLET PO SCH (22:03)
[2017-06-21] MEDS: CLINDAMYCIN HCL 150 MG CAPSULE PO SCH (22:03)
[2017-06-21 22:42] LABS: PHOSPHORUS 3.7 mg/dL (2.5-4.5)
--- NOTE | 2017-06-21 23:55 | Progress Note ---
Provider Note Provider Note: Palliative care follow up visit 06/21/17 4:45 PM Patient remains asleep in her bed. Daughter at bedside who reports that patient has been sleeping most of today again. Staff tried to take her to but she was very resistant and very weak. She is not eating much and is not participating in conversation with daughter. She is refusing to work with physical therapy. She denies pain. On exam., patient is frail and pale in color. She is breating easily without struggle or wheezing. NO cough noted. No frown or sign of pain. Heart rate is regular. No cyanosis or change in breathing patterns noted. Spoke with daughter for support. Daughter is going to apply for bed for patient at [facility] it is obvous patient will be too weak for [facility]. We discussed transfer to Hospice care center in [place] if she continues to decline and refuses to eat. Daughter states they can do hospice at [facility] if patient gets that bad. She has talked with director at [facility] and is paying to have patients bed held. Daughter is realistic that patient may not recover and she says that may be what is best for patient since she has dementia and will not improve mentally. She and her sisters are aware of decline and waiting to see what the next few days brings. Support offered, and she has my cell number for questions or concerns.
[2017-06-22] MEDS: CEFEPIME 1 GM/D5W RTU 1 GM/50 ML RTUPB IV SCH ×2 (00:06→12:31)
[2017-06-22 05:30] LABS: ABSOLUTE BASOPHILS # (AUTO) 0.1 10^3/uL (0.0-0.2); ABSOLUTE LYMPHOCYTES (AUTO) 1.9 10^3/uL (0.5-4.7); ABSOLUTE MONOCYTES (AUTO) 1.8 10^3/uL (0.1-1.4); ABSOLUTE NEUT (AUTO) 15.8 10^3/uL (1.7-8.2); BASOPHILS % (AUTO) 0.5 % (0-2); EOSINOPHILS % (AUTO) 0.1 % (0-6); HEMATOCRIT 22.2 % (36.0-47.0); LYMPHOCYTES % (AUTO) 9.6 % (13-45); MEAN CORPUSCULAR HEMOGLOBIN 34.6 pg (27.0-33.4); MEAN CORPUSCULAR HGB CONC 32.9 g/dL (32.0-36.0); MEAN CORPUSCULAR VOLUME 105 fl (80-97); PLATELET COUNT 281 10^3/uL (150-450); RED BLOOD COUNT 2.11 10^6/uL (3.72-5.28); RED CELL DISTRIBUTION WIDTH 14.8 % (11.5-14.0); SEGMENTED NEUTROPHILS % (AUTO) 80.8 % (42-78); TOTAL CELLS COUNTED % (AUTO) 100 %; WHITE BLOOD COUNT 19.6 10^3/uL (4.0-10.5)
[2017-06-22 05:36] LABS: HEMOGLOBIN 7.3 g/dL (12.0-15.5)
[2017-06-22 05:52] LABS: BLOOD UREA NITROGEN 17 mg/dL (7-20); CALCIUM 7.9 mg/dL (8.4-10.2); CARBON DIOXIDE 15 mmol/L (22-30); CHLORIDE 108 mmol/L (98-107); GLUCOSE 174 mg/dL (75-110); POTASSIUM 4.6 mmol/L (3.6-5.0); SODIUM 134.2 mmol/L (137-145)
[2017-06-22 05:53] LABS: ANION GAP 11 (5-19)
[2017-06-22] MEDS ORDERED: LANSOPRAZOLE 30 MG TAB.RAP.DR PO SCH (06:00)
[2017-06-22] MEDS: AMOXICILLIN TR/POT CLAVULANATE 500-125 MG TAB PO SCH ×2 (06:24→13:44)
[2017-06-22] MEDS: CLINDAMYCIN HCL 150 MG CAPSULE PO SCH ×2 (06:24→13:44)
--- NOTE | 2017-06-22 08:05 | RADIOLOGY REPORT (SQ) ---
EXAM DESCRIPTION: CHEST SINGLE VIEW COMPLETED DATE/TIME: 06/22/2017 7:45 am REASON FOR STUDY: dyspnea COMPARISON: 06/18/2017, 06/15/2017 EXAM PARAMETERS: NUMBER OF VIEWS: One view. TECHNIQUE: Single frontal radiographic view of the chest acquired. RADIATION DOSE: NA LIMITATIONS: None. FINDINGS: LUNGS AND PLEURA: Near complete opacification of the right hemithorax with only minimal ae rated right upper lobe present. This likely represents a combination of right lung collapse and righ t pleural effusion. This finding was called to Dr. Hale 0745 hours 06/22/2017. Left lung well inflated and clear. With No pneumothorax MEDIASTINUM AND HILAR STRUCTURES: No masses. Contour normal. HEART AND VASCULAR STRUCTURES: No gross cardiomegaly. Limited sternotomy with single sternal wire pr esent. BONES: No acute findings. HARDWARE: None in the chest. OTHER: No other significant finding. IMPRESSION: Near complete opacification right hemithorax likely due to a combination of pleural flui d and lung collapse/ consolidation. Findings called to the patient's hospitalist attending physician TECHNICAL DOCUMENTATION: JOB ID: [id number]- All Rights Reserved
[2017-06-22 08:28] VITALS: BP 122/38
[2017-06-22] MEDS: IPRATROPIUM/ALBUTEROL 0.5-2.5 MG/3 ML AMPUL NEB SCH (09:33)
[2017-06-22] MEDS ORDERED: LEVOFLOXACIN 750 MG TABLET PO SCH (10:00)
[2017-06-22] MEDS ORDERED: LORAZEPAM INJ 2 MG/1 ML VIAL IV ONE (10:45)
[2017-06-22] MEDS: LORAZEPAM INJ 2 MG/1 ML VIAL ONE ×2 (10:46→12:31)
[2017-06-22] MEDS ORDERED: HYDROMORPHONE HCL INJ/PF 2 MG/ML AMPULE IV PRN (12:28)
[2017-06-22] MEDS ORDERED: LORAZEPAM INJ 2 MG/1 ML VIAL IV PRN (12:28)
[2017-06-22] MEDS: LORATADINE 10 MG TABLET PO SCH (12:31)
[2017-06-22] MEDS: ASPIRIN 81 MG TABLET, ENT COATED PO SCH (12:31)
[2017-06-22] MEDS: NITROGLYCERIN 2.5 MG (0.1 MG/HR) PATCH.TD24 TD SCH (12:31)
[2017-06-22] MEDS: GUAIFENESIN 600 MG TABLET.SA PO SCH (12:31)
[2017-06-22] MEDS: MAGNESIUM OXIDE 400 MG TABLET PO SCH (12:31)
[2017-06-22] MEDS: DOCUSATE SODIUM 100 MG CAPSULE PO SCH (12:31)
[2017-06-22] MEDS: DILTIAZEM HCL 120 MG CAP.SR.24H PO SCH (12:31)
[2017-06-22] MEDS: ALLOPURINOL 100 MG TABLET PO SCH (12:31)
[2017-06-22] MEDS: LACTOBACILLUS ACIDOPHILUS 250 MG TAB PO SCH (12:31)
[2017-06-22] MEDS: NYSTATIN CREAM 15 GM TP SCH (12:31)
[2017-06-22] MEDS: MULTIVITAMIN TABLET PO SCH (12:31)
[2017-06-22] MEDS: METOPROLOL SUCCINATE 25 MG TAB.SR.24H PO SCH (12:31)
[2017-06-22] MEDS: CLOBETASOL PROPIONATE 0.05% CREAM 15 GM TP SCH (12:31)
--- NOTE | 2017-06-22 12:53 | RADIOLOGY REPORT (SQ) ---
EXAM DESCRIPTION: CT CHEST WITHOUT COMPLETED DATE/TIME: 06/22/2017 11:37 am REASON FOR STUDY: pleural effusion COMPARISON: CT chest 06/15/2017 Chest films 06/22/2017, 06/21/2017, 06/18/2017, 06/15/2017 TECHNIQUE: CT scan performed of the chest without intravenous contrast. Images reviewed with lung, soft tissue and bone windows. Reconstructed coronal and sagittal MPR images reviewed. All images st ored on PACS. All CT scanners at this facility use dose modulation, iterative reconstruction, and/or weight based d osing when appropriate to reduce radiation dose to as low as reasonably achievable (ALARA). [facility]: Dose Right [facility]: CareDose [facility]: Dose Right [facility]: Teradose 4D [facility]: [employer] RADIATION DOSE: CT Rad equipment meets quality standard of care and radiation dose reduction techniq ues were employed. CTDIvol: 7.9 mGy. DLP: 287 mGy-cm. mGy. LIMITATIONS: No technical limitations. FINDINGS: LUNGS AND PLEURA: A large right pleural effusion is present with depression of the right h emidiaphragm. There is a fluid-debris level on axial image 36 worrisome for hematocrit effect, and h yperdense blood clot 60 to 70 Hounsfield units at the right apex hemithorax. Findings are worrisome for right-sided hemothorax. There is complete collapse of the right lung. Findings were discussed w kaitlin Hale, 1230 hours 06/22/2017 HILAR AND MEDIASTINAL STRUCTURES: No identified masses or abnormal nodes. No obvious aneurysm. HEART AND VASCULAR STRUCTURES: No aneurysm. No pericardial effusion. Very heavily calcified coronar y arteries UPPER ABDOMEN: No significant findings. Limited exam. THYROID AND OTHER SOFT TISSUES: No masses. No adenopathy. BONES: No significant finding. HARDWARE: None in the chest. OTHER: No other significant findings. IMPRESSION: Large right pleural effusion with hematocrit effect and hyperdense blood clot at the ape x right hemithorax worrisome for hemothorax. Complete collapse right lung. TECHNICAL DOCUMENTATION: JOB ID: [id number] Quality ID # [id number]: Final reports with documentation of one or more dose reduction techniques (e.g., Au tomated exposure control, adjustment of the mA and/or kV according to patient size, use of iterative reconstruction technique) 2010 [employer]- All Rights Reserved
--- NOTE | 2017-06-22 13:30 | Progress Note ---
Provider Note Provider Note: Chest xray this morning showed large R sided ?effusion?. Patient is on BIPAP, appears comfortable and answers questions appropriately but is falling asleep in between sentences. Send patient to CT to determine extent of ?effusion?. Patient will require BIPAP for transport because her respiratory status is so tenuous. 1145 - patient returned from CT. Nursing staff report that the patient's mental status has declines, she is only able to answer yes/no questions. Extremities appear mottled, nursing staff state they are unable to obtain Sp02 but confirm that the patient does have a pulse. On CT, her entire R lung appears to be filled with fluid - unclear at this time what the source could be. Attempts have been made to contact the patient's daughter, Shelley Kramer, to discuss the patient's condition. Shelley is the medical decision maker for the patient. 1200 - was able to contact the patient's other daughter, Shani, who lives in [place]. She was updated with the patient's condition and stated that she would get in touch with Shelley. 1215 - Shelley Kramer called and I was able to update her about the patient's status. She states that she does not want any resuscitative measures - no CPR, no intubation, no rescue medications, and no electricity, no procedures. Mrs. Kramer was notified of the patient's dire situation, and that the patient might not survive another 24 hours. Comfort care orders provided to nursing staff. Lay Out Helper services requested. 1241 - Radiologist, Dr MEJÍA called with CT results. She states she is concerned the patient's lung could be filled with blood. Based on the appearance on CT and the patient's recent drop in Hgb 9.3 -> 7.3. Dr. MEJÍA was notified that the family wanted to pursue comfort care and that they were not interested in any procedures at this time. Dr. MEJÍA and I agree that any intervention would likely not change the patient's overall outcome. 1245 - Still unable to obtain reliable Sp02, nursing staff confirm that the patient does have a pulse. Shelley Kramer is now at the bedside. She is asking the nursing staff to remove the BIPAP mask and let "my mom go in peace. I don't want her to be in any pain." 1310 - patient . Asystole confirmed on telemetry. 2 RNs at bedside confirm the patient has no pulse. Shelley Kramer and her are at the bedside and notified that the patient has . is at the bedside.
[2017-06-22] MEDS ORDERED: SCOPOLAMINE HYDROBROMIDE 1.5 MG PATCH.TD72 TD ONE (14:30)
--- NOTE | 2017-07-29 13:41 | Death Summary ---
Summary Date : 06/22/17 Time of :: 13:10 Autopsy: No Resuscitation Status: Do Not Resuscitate - DNR, DNI, NO CHEMICAL CODE, NO ELECTRICITY. COMFORT CARE Primary Care Provider: Meredith Peraza Consulting Provider: Sarmad Hale HAND SCRAPER - Final Diagnosis (1) UTI (urinary tract infection) Is this a current diagnosis for this admission?: Yes (2) Systolic and diastolic CHF, chronic Is this a current diagnosis for this admission?: Yes (3) Acute respiratory failure with hypoxia Is this a current diagnosis for this admission?: Yes (4) CHF (congestive heart failure) Is this a current diagnosis for this admission?: Yes (5) DNR (do not resuscitate) Is this a current diagnosis for this admission?: Yes (6) Dementia Is this a current diagnosis for this admission?: Yes (7) Viral syndrome Is this a current diagnosis for this admission?: Yes Hospital Course:: NALINI HALE is an 87-year-old female with a past medical history of atrial fibrillation and atrial flutter, dementia, CKD, and arthritis who was recently admitted to [facility] for a non-STEMI and systolic and diastolic congestive heart failure. On the day of her discharge after returning to her primary residence at [facility], the patient was exhibiting confusion and shortness of breath. She was return to the emergency department that same day and was found to have a UTI and pneumonia. She was readmitted on 06/15/2017. UTI treated with Unasyn and transitioned to Augmentin. ENCEPHALOPATHY believed to be acute metabolic encephalopathy secondary to her UTI. Following treatment with antibiotics, the patient retuned to her baseline. CAD with TX. Medically managed with ASA, statin, metoprolol, diltiazem. Family did not want to pursue aggressive interventions. Elevated troponin in light of NSTEMI. No aggressive measures per family request. AFIB rate controlled with diltiazem and metoprolol [facility] chest xray from 06/21 showed b/l airspace disease R>L and R pleural effusion. Blood cultures and MRSA screening negative. Started on Clindamycin and Levaquin. FOR THE REMAINDER OF DETAILS SURROUNDING THE EXPIRATION OF THE PATIENT, SEE PROVIDER NOTE BY SARMAD HALE NP
== END 2017-06-22 15:41 | DRG 193 ==
LOC: ER 02:24 → EH 08:18 → 4N 06-16 15:04
PROVIDERS: ADMIT Emergency Medicine; ATTEND Emergency Medicine
PROC: 3E0F73Z Introduction of Anti-inflammatory into Respiratory Tract, Via Natural or Artificial Opening (ICD-10-PCS; 2017-06-15)
PROC: 5A09357 Assistance with Respiratory Ventilation, Less than 24 Consecutive Hours, Continuous Positive Airway Pressure (ICD-10-PCS; principal; 2017-06-22)
DX: J18.9 Pneumonia, unspecified organism (principal); J96.01 Acute respiratory failure with hypoxia; G93.41 Metabolic encephalopathy; N17.9 Acute kidney failure, unspecified; I48.0 Paroxysmal atrial fibrillation; I11.0 Hypertensive heart disease with heart failure; I50.42 Chronic combined systolic (congestive) and diastolic (congestive) heart failure; B37.9 Candidiasis, unspecified; B96.1 Klebsiella pneumoniae [K. pneumoniae] as the cause of diseases classified elsewhere; I25.10 Atherosclerotic heart disease of native coronary artery without angina pectoris; B34.9 Viral infection, unspecified; N39.0 Urinary tract infection, site not specified; I48.92 Unspecified atrial flutter; Z66 Do not resuscitate; E78.00 Pure hypercholesterolemia, unspecified; Z51.5 Encounter for palliative care; K21.9 Gastro-esophageal reflux disease without esophagitis; M19.90 Unspecified osteoarthritis, unspecified site; F32.9 Major depressive disorder, single episode, unspecified; F03.90 Unspecified dementia, unspecified severity, without behavioral disturbance, psychotic disturbance, mood disturbance, and anxiety; I73.00 Raynaud's syndrome without gangrene; E78.5 Hyperlipidemia, unspecified; E86.0 Dehydration; I44.7 Left bundle-branch block, unspecified; I25.2 Old myocardial infarction; Z88.6 Allergy status to analgesic agent; Z91.048 Other nonmedicinal substance allergy status; Z79.899 Other long term (current) drug therapy; Z82.49 Family history of ischemic heart disease and other diseases of the circulatory system
CPT/HCPCS: 36415; 71045; 71250; 74022; 80048; 80053; 80076; 81001; 82803; 83735; 83880; 84100; 84443; 84484; 85025; 85027; 85379; 85610; 85730; 87040; 87086; 87088; 87186; 87493; 93005; 93010; 94660; 94799; 96361; 96365; 99285; G8978-GP; G8979-GP; G8987-GO; G8988-GO; G8996-GN; G8997-GN; J0692; J0696; J2060; J2543; J3370; J3490; J7030; J7040; J7060; J7620